=== PATIENT | male | born 1955 | race Caucasian/White ===

== ENCOUNTER → 2016-11-16 | Outpatient (CLI) | payer OTHER | END | disposition home or self-care (01) | LOC: C.CPL 14:38 | DX: Z01.810 Encounter for preprocedural cardiovascular examination (principal) ==

== ENCOUNTER 2025-01-02 11:12 | Inpatient (IN) ==
--- NOTE | 2025-01-02 11:44 | Cardiology Consultation ---
Date of Consultation January 02, 2025 Assessment & Plan (1) Unstable angina pectoris: Patient with recent symptoms consistent with both exertional and resting angina that has progressed over an interval of 4 months. He underwent an exercise nuclear stress test performed this morning at [facility]. The patient exercised according to Kulwinder protocol for 5 minutes and 30 seconds with reproduction of his chest discomfort, character consistent with angina, with associated ST segment depression in the inferior and lateral leads. Patient received 1 dose of sublingual nitroglycerin with resolution of the tightness. Perfusion images were reviewed independently and reveal a large sized lateral perfusion defect on the stress images with reperfusion on the rest images consistent with ischemia in the circumflex territory. On quantitative analysis the perfusion defect was 100% reversible. The post-rest ejection fraction by gated SPECT was normal, 57%. High sensitive troponin level x 1 performed in the emergency department is within normal limits. ST segment depression has resolved on follow-up EKG as documented in the emergency department. Recommend admission to the PCU. Proceed with aspirin, unfractionated heparin, atorvastatin.Start gentle normal saline, 75 mL/h Tentative plan for cardiac catheterization tomorrow unless the patient experiences accelerated symptoms at which time procedure will be performed on an expedited basis earlier. (2) HTN (hypertension): Hold off on adding metoprolol for now as baseline heart rate is already in the 60s. Continue prior to hospital treatment with amlodipine 5 mg daily, lisinopril 20 mg daily. (3) Hyperlipidemia: Most recent LDL cholesterol as obtained on 12/01/2024 was 77 mg/dL. Increase outpatient atorvastatin from 40 mg to 80 mg. (4) Alcohol abuse: Patient describes daily alcohol use, 5-6 drinks per day. Will likely require withdrawal prophylaxis. Case discussed with Dr Narayanan of emergency medicine and Dr Busby of interventional cardiology for the purpose of coordination of care. History of Present Illness History of Present Illness Cal Hutchison is a 69 year-old male seen in cardiology consultation per the request of Dr Narayanan of emergency medicine and the patient's primary care provider , Dr Wilks, for the evaluation of unstable angina. The patient describes exertional chest discomfort dating back to August, when he was clearing brush and had an episode of chest pressure and heavy perspiration that resolved with rest. In the meantime, he has had waxing and waning chest discomfort with exertion including chest pressure that radiated up into his jaw and his shoulders while shoveling snow. In the last few weeks he has had several episodes of a pressure sensation that woke him up from sleep and felt like an elephant sitting on his chest that radiates to his shoulders. The resting symptoms have come and gone since around October,. The patient was seen by his primary care provider and was referred for a resting echocardiogram performed on 12/13/2024 that revealed normal ejection fraction in the range of 55-59% with no resting wall motion abnormalities, no significant valvular disease. He unturned presented for an exercise nuclear stress test today. He was found to have a right bundle branch block and left anterior fascicular block on his baseline EKG which are chronic findings for him. With exercise he is symptoms of chest discomfort were reproduced with 9/10 chest discomfort while exercising on the treadmill and subtle ST segment depression was noted in inferior lateral leads on his stress EKG. Symptoms resolved with ceasing exercise and with the patient having received 1 dose of sublingual nitroglycerin. He was assessed by Dr. Rea of our practice in the outpatient cardiology clinic and referred to the emergency department for further evaluation. He was seen by the undersigned in the emergency department, room B6. At the time of my assessment the patient was comfortable he endorsed residual 1/10 chest discomfort. Past Medical History: Hypertension Dyslipidemia GERD Osteoarthritis Past Surgical History: spine surgery x 1 Shoulder surgery Family History: Patient's father is alive at the age of 91 with history of coronary heart disease, multiple stents, and is being followed for a valve problem, patient unaware of the details The patient's mother in her 80s of what the patient described as "natural causes "with no known heart disease The patient has 2 brothers and 2 sisters with no known heart disease to the best of his knowledge. 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 He quit cigarette smoking in the year 1999 He notes daily alcohol intake, 5-6 drinks per day Allergies Allergy/AdvReac Type Severity Reaction Status Date / Time No Known Allergies Allergy Unknown Verified 11/12/20 14:41 Home Medications Medication Instructions Recorded Confirmed Type citalopram 20 mg tablet 20 mg PO HS 06/17/18 11/12/20 History clonazepam 1 mg tablet 1 mg PO HS 06/17/18 11/12/20 History pantoprazole 40 mg tablet,delayed 40 mg PO HS 07/19/18 11/12/20 History release (Protonix) amlodipine 5 mg tablet 5 mg PO DAILY 09/18/20 11/12/20 History lisinopril 20 mg tablet 20 mg PO DAILY 09/18/20 11/12/20 History tamsulosin 0.4 mg capsule 0.4 mg PO HS #30 caps 10/28/20 11/12/20 Rx Patient History Medical History Alcohol abuse Obesity Cervicalgia B/L UE RADICULOPATHY/NEUROPATHY Solitary kidney CONGENITAL; UNSURE OF SIDE History of hiatal hernia GERD (gastroesophageal reflux disease) CONTROLLED Spinal stenosis Depression Anxiety Hyperlipidemia Surgical History History of esophagogastroduodenoscopy (EGD) History of lumbar fusion Hx of arthroscopy of shoulder Hx of colonoscopy Hx of right knee surgery Hx of shoulder surgery Family History Father Heart disease Social History Smoking Status: Former smoker Do You Dip or Chew Tobacco: No; Hx Alcohol Use: Yes Alcohol type: beer Alcohol Intake Frequency Comment: 6-10 lite beers 8-12oz cans daily, last drink 2300 on 07/18/18 Hx Substance Use: No Preferred Language: Citizen Of [place] Communication Ability: Effective Beliefs That Will Affect Care: None marital status: Current Living Situation: Spouse Feels Safe at Home: Yes Assistive Devices: Brace/Splint/Immobilizer and Glasses Review of Systems Review of Systems: All systems reviewed & are unremarkable except as noted in HPI & below Physical Exam Physical Exam: Temp Pulse Resp BP Pulse Ox O2 Del Method 36.3 C L 69 18 157/92 H 97 Room Air 01/02/25 11:15 01/02/25 11:42 01/02/25 11:22 01/02/25 11:15 01/02/25 11:22 01/02/25 11:22 Patient is 89 general: no acute distress and stated age Eyes: conjunctiva are pink and non-injected, sclera clear Neck: normal jugular venous pulse, no hepatojugular reflux Chest: normal shape and normal respiratory effort Lungs: clear to auscultation and percussion Cardiac Exam: - regular heart sounds, no murmurs, rubs, or gallops, no jugular venous distention Abdomen: abdomen soft, non-tender, no abnormal masses and no hepatosplenomegaly Musculoskeletal: no gait disturbance, no weakness Extremities: no edema and no cyanosis 2+ radial and femoral artery Neuro:awake, conversant, follows commands, no focal motor deficits Psych: appropriate affect and insight. Results & Data Laboratory Results Cardiac Enzymes 01/02/25 Range/Units 11:30 AST TNP Troponin I High Sens 15.5 (0-20) pg/ml Coagulation 01/02/25 Range/Units 11:30 PT Cancelled APTT Cancelled CBC 01/02/25 Range/Units 11:30 WBC 7.94 (4.8-10.8) K/ul RBC 4.03 L (4.70-6.10) M/uL Hgb 13.2 L (14.0-18.0) g/dl Hct 37.8 L (42.0-52.0) % Plt Count 193 (130-400) K/uL Neut # (Auto) 5.45 (1.40-6.50) K/uL Lymph # (Auto) 1.39 (1.20-3.40) K/uL Randall # (Auto) 0.67 H (0.11-0.59) K/uL Eos # (Auto) 0.35 (0.00-0.50) K/uL Baso # (Auto) 0.05 (0.00-0.20) K/uL Comprehensive Metabolic Panel 01/02/25 Range/Units 11:30 Sodium 134 L (136-145) mmol/L Potassium TNP Chloride 101 (98-107) mmol/L Carbon Dioxide 26 (21-32) mmol/L BUN 16 (6-23) mg/dl Creatinine 1.22 (0.6-1.4) mg/dl Glucose 99 (70-99(Fasting)) mg/dl Calcium 9.6 (8.6-10.3) mg/dl AST TNP ALT 19 (7-52) U/L Alkaline Phosphatase 41 (34-104) U/L Total Protein 7.7 (6.0-8.3) gm/dl Albumin 4.6 (3.4-5.0) gm/dl Diagnostic Findings EKG performed 01/02/2025 at 11:22 AM and interpreted independently: Sinus rhythm at 6 6 bpm with right bundle branch block, left axis deviation, QRS duration 146 ms, no significant ST segment elevation or depression.
[2025-01-02] MEDS: ASPIRIN 81 MG CHEW PO STA (11:51)
[2025-01-02 11:52] LABS: Basophils # (auto) 0.05 K/uL (0.00-0.20); Basophils % (auto) 0.6 %; Eosinophils # (auto) 0.35 K/uL (0.00-0.50); Eosinophils % (auto) 4.4 %; Hematocrit (blood only) 37.8 % (42.0-52.0); Hemoglobin 13.2 g/dl (14.0-18.0); Immature Granulocytes # (auto) 0.03 K/uL (0.01-0.20); Immature Granulocytes % (auto) 0.4 %; Lymphocytes # (auto) 1.39 K/uL (1.20-3.40); Lymphocytes % (auto) 17.5 %; Mean Corpuscular Hemoglobin 32.8 pg (25.0-34.0); Mean Corpuscular Hgb Conc 34.9 g/dL (32.0-36.0); Mean Corpuscular Volume 93.8 fL (80.0-100.0); Mean Platelet Volume 10.5 fL (9.4-12.4); Monocytes # (auto) 0.67 K/uL (0.11-0.59); Monocytes % (auto) 8.4 %; Neutrophils # (auto) 5.45 K/uL (1.40-6.50); Neutrophils % (auto) 68.7 %; Platelet Count 193 K/uL (130-400); RDW Coefficient of Variation 12.3 % (11.5-14.5); RDW Standard Deviation 42.5 fL (36.4-46.3); Red Blood Count 4.03 M/uL (4.70-6.10); White Blood Count 7.94 K/ul (4.8-10.8)
[2025-01-02] MEDS: SODIUM CHLORIDE 0.9% 1,000 ML IV SCH (11:52)
--- NOTE | 2025-01-02 11:52 | Emergency Department Note ---
Impression & Plan Unstable angina pectoris, HTN (hypertension), Abnormal nuclear stress test ED Provider Note NAME: FERNANDO MCWILLIAMS AGE: 69 SEX: M : 1955 ARRIVES VIA: Walk-In INFORMANT: Patient ED PROVIDER(S): Nic Narayanan MD CHIEF COMPLAINT: Chest pain, positive stress test, referred. PLAN: Disposition: Admit MEDICAL DECISION MAKING: The patient is a pleasant 69-year-old gentleman with a past medical history of hypertension, hyperlipidemia, GERD, alcohol use who presents to the emergency department via walk-in referred by his cardiology office after having an outpatient stress test today that was positive in the setting of having ongoing symptoms that are suspicious for unstable angina for the past couple of months. Patient developed chest pain and ST changes during his stress test. His symptoms resolved following nitroglycerin. Patient was seen by [facility] cardiology, Dr. Moe, in the emergency department. Appreciate consultation and recommendations. Patient will be admitted for unstable angina with plan to go to the [facility]. ASA and Heparin drip ordered. On evaluation patient is no acute distress, afebrile blood pressure in the 150s/90s and vital signs otherwise stable. He denies any significant pain at this time. EKG with RBBB without overt acute ischemia. Chest x-ray negative for acute cardiopulmonary process. WBC within normal limits. H/H similar to improved from prior. Platelets within normal limits. Chemistry without metabolic acidosis. Total bilirubin 1.4, nonspecific LFTs otherwise normal. High-sensitivity troponin 15.5, within normal limits. Lipase is normal. Case was discussed with Dr. Lopez, [facility] hospitalist, who will evaluate the patient for admission. Further management per admitting team. Triage Nursing notes reviewed and agree them. Prior/external medical records reviewed Vital Signs: reviewed Differential diagnosis: Cardiac ischemia, aortic dissection, pulmonary embolism, pneumothorax, pneumonia, pericarditis, myocarditis, esophageal rupture, GERD, cholecystitis, pancreatitis, musculoskeletal, as well as other pathologies. ER treatment provided: See below. Diagnostics interpreted by me: ECG: Normal sinus rhythm, 66 bpm, no ectopy, right bundle branch block, no overt ST elevation or depression, QTc 473, QRS 146 Cardiac Monitoring: An order for continuous cardiac monitoring was placed and demonstrated Normal sinus rhythm, 66 bpm, no ectopy, Laboratory studies: See below Imaging studies: See below Consultation(s): Dr. Moe, [facility] cardiology Dr. Lopez, [facility] hospitalist HPI: The patient is a pleasant 69-year-old gentleman with a past medical history of hypertension, hyperlipidemia, GERD, alcohol use who presents to the emergency department via walk-in referred by his cardiology office after having an outpatient stress test today that was positive in the setting of having ongoing symptoms that are suspicious for unstable angina for the past couple of months. Patient developed chest pain and ST changes during his stress test. His symptoms resolved following nitroglycerin. Patient was seen by [facility] cardiology, Dr. Moe, in the emergency department. Appreciate consultation and recommendations. Patient will be admitted for unstable angina with plan to go to the [facility]. ASA and Heparin drip ordered. ROS: See above HPI for pertinent positives & negatives. A total of 10 systems reviewed and were otherwise negative. VITALS:See Below PHYSICAL EXAMINATION: GENERAL: Awake, alert, in no distress HENT: Normocephalic, atraumatic. Oropharynx unremarkable. EYES: Normal conjunctiva. Sclera non-icteric. NECK: Supple. No nuchal rigidity. FROM. No JVD. RESPIRATORY: Clear to auscultation. CARDIAC: Regular rate, normal rhythm. Extremities warm and well perfused. Pulses equal. ABDOMEN: Soft, non-distended. No tenderness to palpation. No rebound or guarding. No masses. MUSCULOSKELETAL: Chest examination reveals no tenderness. The back is symmetrical on inspection without obvious abnormality. There is no CVA tenderness to palpation. No joint edema. LOWER EXTREMITIES: Calves are equal size bilaterally and non-tender. No edema. No discoloration. NEURO: Normal sensorium. No sensory or motor deficits noted. SKIN: No rash or jaundice noted. ED COURSE: Critical Care: I have personally spent greater than 35 minutes of critical care time in the direct management of this patient. This includes bedside care, interpretation of diagnostic studies, and testing, discussion with consultants, patient, and family members, and other required patient management activities. This 35 minutes is in excess of all separately billable procedures. Nic Narayanan MD Past Med/Surg History Problem List (Updated 01/02/25 @ 22:14 by Nic Narayanan MD) Abnormal nuclear stress test (Acute) HTN (hypertension) (Acute) Unstable angina pectoris (Acute) BPH w urinary obs/LUTS Weak urine stream Acute blood loss anemia Postoperative hypertension (Acute) History of esophagogastroduodenoscopy (EGD) Alcohol abuse Hyperlipidemia (Chronic) Anxiety (Chronic) Depression (Chronic) Spinal stenosis (Chronic) History of lumbar fusion (Chronic) GERD (gastroesophageal reflux disease) (Chronic) CONTROLLED Hx of arthroscopy of shoulder (Chronic) RIGHT Hx of shoulder surgery (Chronic) LEFT Hx of right knee surgery (Chronic) TENDON SURGERY Hx of colonoscopy (Chronic) Solitary kidney (Chronic) CONGENITAL; UNSURE OF SIDE Obesity (Chronic) Cervical stenosis of spinal canal Encounter for pre-operative examination Medical History Cervicalgia B/L UE RADICULOPATHY/NEUROPATHY History of hiatal hernia Family History Father Heart disease Social History Smoking Status: Never smoker Do You Dip or Chew Tobacco: No; Hx Alcohol Use: Yes Alcohol type: beer Alcohol Intake Frequency Comment: 6-10 lite beers 8-12oz cans daily, last drink 2300 on 07/18/18 Hx Substance Use: No Preferred Language: [place] Communication Ability: Effective Emergency Veterinarian Required: No Beliefs That Will Affect Care: None marital status: Current Living Situation: Spouse Other Information That Helps Us Care for You: No Feels Safe at Home: Yes Safety Concerns: Feels Safe At This Time Assistive Devices: None Allergies Allergies Allergy/AdvReac Type Severity Reaction Status Date / Time No Known Allergies Allergy Unknown Verified 01/02/25 13:21 Home Meds Home Medications Medication Instructions Recorded Confirmed citalopram 20 mg tablet 20 mg PO HS 06/17/18 01/02/25 clonazepam 1 mg tablet 1 mg PO 06/17/18 01/02/25 pantoprazole 40 mg tablet,delayed 40 mg PO QAM 07/19/18 01/02/25 release (Protonix) amlodipine 5 mg tablet 5 mg PO DAILY 09/18/20 01/02/25 lisinopril 20 mg tablet 20 mg PO DAILY 09/18/20 01/02/25 atorvastatin 40 mg tablet 40 mg PO QAM 01/02/25 01/02/25 Results & Data (ED) Vital Signs Vital Signs - 24 hr 01/02/25 11:13 01/02/25 11:13 01/02/25 11:15 Temperature 36.3 C L Temperature Source Skin Pulse Rate 68 Pulse Rate [Right] 63 Pulse Rhythm Pulse Rhythm [Right] Regular Pulse Strength [Right] Normal Respiratory Rate 18 17 Respiratory Effort / Characteristics Non-Labored Non-Labored Spontaneous Respiratory Depth Normal Normal Respiratory Pattern Regular Regular Blood Pressure 157/92 H Blood Pressure [Right Arm] 143/78 H Blood Pressure Mean 113 Blood Pressure Mean [Right Arm] 99 Blood Pressure Position [Right Arm] Lying Pulse Oximetry 97 96 Oxygen Delivery Method Room Air Room Air Room Air Sepsis Recent Fever Within 48 Hours No Sepsis New/Unexplained Change in Mental Status N/A Sepsis Action Taken by Nursing No Action Required 01/02/25 11:22 01/02/25 11:42 Temperature Temperature Source Pulse Rate 65 69 Pulse Rate [Right] Pulse Rhythm Regular Pulse Rhythm [Right] Pulse Strength [Right] Respiratory Rate 18 Respiratory Effort / Characteristics Respiratory Depth Respiratory Pattern Blood Pressure Blood Pressure [Right Arm] Blood Pressure Mean Blood Pressure Mean [Right Arm] Blood Pressure Position [Right Arm] Pulse Oximetry 97 Oxygen Delivery Method Room Air Sepsis Recent Fever Within 48 Hours Sepsis New/Unexplained Change in Mental Status Sepsis Action Taken by Nursing Laboratory Data Attestation: I reviewed the patient's lab results. 01/02/25 11:30 01/02/25 11:30 Lab Results 01/02/25 01/02/25 Range/Units 11:30 12:27 WBC 7.94 (4.8-10.8) K/ul RBC 4.03 L (4.70-6.10) M/uL Hgb 13.2 L (14.0-18.0) g/dl Hct 37.8 L (42.0-52.0) % MCV 93.8 (80.0-100.0) fL MCH 32.8 (25.0-34.0) pg MCHC 34.9 (32.0-36.0) g/dL RDW Std Deviation 42.5 (36.4-46.3) fL RDW Coeff of Jessica 12.3 (11.5-14.5) % Plt Count 193 (130-400) K/uL MPV 10.5 (9.4-12.4) fL Immature Gran % (Auto) 0.4 % Neut % (Auto) 68.7 % Lymph % (Auto) 17.5 % Kay % (Auto) 8.4 % Eos % (Auto) 4.4 % Baso % (Auto) 0.6 % Neut # (Auto) 5.45 (1.40-6.50) K/uL Lymph # (Auto) 1.39 (1.20-3.40) K/uL Kay # (Auto) 0.67 H (0.11-0.59) K/uL Eos # (Auto) 0.35 (0.00-0.50) K/uL Baso # (Auto) 0.05 (0.00-0.20) K/uL Immature Gran # (Auto) 0.03 (0.01-0.20) K/uL PT Cancelled 10.7 INR Cancelled 1.0 APTT Cancelled 27 PTT Ratio Cancelled 1.0 Sodium 134 L (136-145) mmol/L Potassium 4.4 (3.5-5.1) mmol/L Chloride 101 (98-107) mmol/L Carbon Dioxide 26 (21-32) mmol/L Anion Gap 7 (3-11) BUN 16 (6-23) mg/dl Creatinine 1.22 (0.6-1.4) mg/dl Est Cr Clr Drug Dosing 64.6 ml/min eGFR 64.18 BUN/Creatinine Ratio 13.1 (10-20) Glucose 99 (70-99(Fasting)) mg/dl Calcium 9.6 (8.6-10.3) mg/dl Magnesium 1.9 (1.7-2.4) mg/dl Total Bilirubin 1.4 H (0.2-1.0) mg/dl AST 18 (13-39) U/L ALT 19 (7-52) U/L Alkaline Phosphatase 41 (34-104) U/L Troponin I High Sens 15.5 (0-20) pg/ml Total Protein 7.7 (6.0-8.3) gm/dl Albumin 4.6 (3.4-5.0) gm/dl Globulin 3.1 (2.5-4.0) gm/dl Albumin/Globulin Ratio 1.5 (0.9-2) Lipase 38 (11-82) U/L Administered Medications Acetaminophen (Acetaminophen 325 Mg Tab) 650 mg PO Q4H PRN PRN Reason: Pain or Fever Stop: 02/01/25 14:31 Last Admin: 01/02/25 20:09 Dose: 650 mg Documented By: SAMUEL Sodium Chloride (Nss) 1,000 mls @ 75 mls/hr IV .[id number] JERALD Stop: 01/03/25 11:44 Last Admin: 01/02/25 11:52 Dose: 75 mls/hr Documented By: MARY Heparin Sodium/Dextrose (Heparin 51612 Unit/500 Ml D5w) 25,000 units in 500 mls @ 0 mls/hr IV .Q0M JERALD; Protocol Stop: 02/01/25 12:29 Last Titration: 01/02/25 19:51 Dose: 0 units/hr, 0 mls/hr Documented By: SAMUEL Co-signed By: FABIENNE Admin: 01/02/25 13:06 Dose: 1,450 units/hr, 29 mls/hr Documented By: MARY Co-signed By: DAXA Nitroglycerin (Nitroglycerin 2% Ointment 30gm Tube) 1 inch EXT Q6H JERALD Stop: 02/01/25 16:44 Last Admin: 01/02/25 17:15 Dose: 1 inch Documented By: CHARU Discontinued Medications Aspirin (Aspirin 81 Mg Chew) 324 mg PO NOW STA Stop: 01/02/25 11:42 Last Admin: 01/02/25 11:51 Dose: 324 mg Documented By: MARY Atorvastatin Calcium (Atorvastatin 40 Mg Tab) 80 mg PO NOW ONE Stop: 01/02/25 12:01 Last Admin: 01/02/25 12:15 Dose: 80 mg Documented By: MARY Heparin Sodium (Porcine) (Heparin Sod (Porcine) 1000 Unit/Ml) 6,000 units IV NOW ONE Stop: 01/02/25 12:19 Last Admin: 01/02/25 13:06 Dose: 6,000 units Documented By: MARY Co-signed By: DAXA Heparin Sodium/Dextrose (Heparin Iv Adult Wt-Based Standard W/ Initial Bolus Protocol) 1 each IV Q10M JERALD; Protocol Stop: 02/01/25 12:07 Last Admin: 01/02/25 13:12 Dose: Not Given Documented By: Admin: 01/02/25 13:12 Dose: Not Given Documented By: Admin: 01/02/25 13:12 Dose: Not Given Documented By: Admin: 01/02/25 13:11 Dose: Not Given Documented By: SARITHAW Nitroglycerin (Nitroglycerin 2% Ointment 30gm Tube) 0.5 inch EXT Q6H JERALD Stop: 02/01/25 12:14 Last Admin: 01/02/25 13:01 Dose: 0.5 inch Documented By: MPD Imaging Data Radiologist's Impression: Chest X-Ray 01/02/25 11:21 XR chest 1V portable CLINICAL HISTORY: Chest pain, nonspecific COMPARISON STUDY: 06/21/2018 FINDINGS: Single view chest demonstrates no acute process allowing for low lung volumes and body habitus. There is no airspace opacity, pleural effusion, or pneumothorax. The heart and pulmonary vascularity are unremarkable. IMPRESSION: Stable exam; no acute process ACT 112: Negative or not required by law. Electronically signed by: Emma Camacho M.D. 01/02/2025 1:38 PM Discharge Plan Visit Data Chief Complaint: Chest Pain Stated Complaint: HEART, CHEST PAIN ED Provider: Nic Narayanan Discharge Problem: Unstable angina pectoris, HTN (hypertension), Abnormal nuclear stress test Patient Disposition: Admitted As Inpatient Discharge Instructions Interventions: ED Discharge Assessment Last Done: 01/02/25 13:56 Discharge Problem: HTN (hypertension) Qualifiers: Hypertension type: unspecified Qualified Code(s): I10 - Essential (primary) hypertension
[2025-01-02 12:15] LABS: Albumin Globulin Ratio 1.5 (0.9-2); Albumin Level 4.6 gm/dl (3.4-5.0); BUN Creatinine Ratio 13.1 (10-20); Bilirubin,Total 1.4 mg/dl (0.2-1.0); Calcium 9.6 mg/dl (8.6-10.3); Creatinine Clr Calc Pharmacy 64.6 ml/min; Globulin 3.1 gm/dl (2.5-4.0); Magnesium 1.9 mg/dl (1.7-2.4); Total Protein 7.7 gm/dl (6.0-8.3); Troponin I High Sensitivity 15.5 pg/ml (0-20)
[2025-01-02] MEDS: ATORVASTATIN 40 MG TAB PO ONE (12:15)
[2025-01-02 12:26] LABS: Potassium 4.4 mmol/L (3.5-5.1)
[2025-01-02] MEDS: NITROGLYCERIN 2% OINTMENT 30GM TUBE EXT SCH ×2 (13:01→17:15)
[2025-01-02] MEDS: HEPARIN 25000 UNIT/500 ML D5W 25,000 UNITS/500 ML BAG IV SCH (13:06)
[2025-01-02] MEDS: HEPARIN SOD (PORCINE) 1000 UNIT/ML IV ONE (13:06)
[2025-01-02 13:09] LABS: Partial Thromboplastin Time 27 Seconds (21-31); Prothrombin Time 10.7 Seconds (9.0-12.0)
[2025-01-02] MEDS: Heparin IV Adult Wt-Based Standard w/ INITIAL Bolus Protocol IV SCH (13:11)
--- NOTE | 2025-01-02 13:39 | XRay Report ---
XR chest 1V portable CLINICAL HISTORY: Chest pain, nonspecific COMPARISON STUDY: 06/21/2018 FINDINGS: Single view chest demonstrates no acute process allowing for low lung volumes and body habi tus. There is no airspace opacity, pleural effusion, or pneumothorax. The heart and pulmonary vascula rity are unremarkable. IMPRESSION: Stable exam; no acute process ACT 112: Negative or not required by law. Electronically signed by: Emma Camacho M.D. 01/02/2025 1:38 PM
--- NOTE | 2025-01-02 14:41 | History & Physical Report ---
Date of Service January 02, 2025 Assessment & Plan (1) Unstable angina pectoris: Plan: 69-year-old male with history of hypertension, dyslipidemia, GERD, LAURA Presenting with chest pain times few weeks. Unstable angina Positive nuclear stress test Troponin negative x 1 EKG mild branch block, left anterior fascicular block-chronic Discussed plan of care with Dr. Moe Plan for cardiac catheterization tomorrow Continue heparin drip, Nitropaste Atorvastatin increased to 80 mg daily Continue usual amlodipine plus lisinopril Other chronic medical problems Hypertension Dyslipidemia GERD Generalized anxiety DVT prophylaxis Currently on heparin drip Full code Disposition Lives with family Admission and Anticipated Discharge Date Admission Date: January 02, 2025 History of Present Illness Chief Complaint: Chest pain times few weeks Primary Care Provider: Areli Wilks MD 69-year-old male with history of hypertension, dyslipidemia, GERD, LAURA Presenting with chest pain times few weeks. Patient has been having intermittent chest pain which started last August 2024. Today, the patient underwent an exercise nuclear stress test which was markedly abnormal, reproducing chest discomfort and with subtle ST segment depressions in the inferior lateral leads. He was then referred to the ER. Upon arrival, blood pressure 143/78, rate 63, respiratory rate 18, 90% on room air, temperature afebrile Troponin x 1 negative EKG no signs of ischemia or infarct Dr. Moe evaluated the patient at the ER. He was given [id number] mg, heparin drip was started, and Nitropaste, Lipitor 80 mg also ordered. Discussed case with Dr. Moe, plan is for a cardiac catheterization tomorrow. On exam, patient seen resting in bed, sitting up, having 1 out of 10 chest discomfort which is usual according to him. No active dizziness, headache, shortness of breath, nausea. Allergies Allergy/AdvReac Type Severity Reaction Status Date / Time No Known Allergies Allergy Unknown Verified 01/02/25 13:21 Home Medications Medication Instructions Recorded Confirmed Type citalopram 20 mg tablet 20 mg PO HS 06/17/18 01/02/25 History clonazepam 1 mg tablet 1 mg PO HS 06/17/18 01/02/25 History pantoprazole 40 mg tablet,delayed 40 mg PO QAM 07/19/18 01/02/25 History release (Protonix) amlodipine 5 mg tablet 5 mg PO DAILY 09/18/20 01/02/25 History lisinopril 20 mg tablet 20 mg PO DAILY 09/18/20 01/02/25 History atorvastatin 40 mg tablet 40 mg PO QAM 01/02/25 01/02/25 History Past Med/Surg History Problem List (Updated 01/02/25 @ 12:19 by Chaparro Moe DO) HTN (hypertension) Unstable angina pectoris BPH w urinary obs/LUTS Weak urine stream Acute blood loss anemia Postoperative hypertension (Acute) History of esophagogastroduodenoscopy (EGD) Alcohol abuse Hyperlipidemia (Chronic) Anxiety (Chronic) Depression (Chronic) Spinal stenosis (Chronic) History of lumbar fusion (Chronic) GERD (gastroesophageal reflux disease) (Chronic) CONTROLLED Hx of arthroscopy of shoulder (Chronic) RIGHT Hx of shoulder surgery (Chronic) LEFT Hx of right knee surgery (Chronic) TENDON SURGERY Hx of colonoscopy (Chronic) Solitary kidney (Chronic) CONGENITAL; UNSURE OF SIDE Obesity (Chronic) Cervical stenosis of spinal canal Encounter for pre-operative examination Medical History Alcohol abuse Obesity Cervicalgia B/L UE RADICULOPATHY/NEUROPATHY Solitary kidney CONGENITAL; UNSURE OF SIDE History of hiatal hernia GERD (gastroesophageal reflux disease) CONTROLLED Spinal stenosis Depression Anxiety Hyperlipidemia Surgical History History of esophagogastroduodenoscopy (EGD) History of lumbar fusion Hx of arthroscopy of shoulder Hx of colonoscopy Hx of right knee surgery Hx of shoulder surgery Family History Father Heart disease Social History Smoking Status: Former smoker Do You Dip or Chew Tobacco: No; Hx Alcohol Use: Yes Alcohol type: beer Alcohol Intake Frequency Comment: 6-10 lite beers 8-12oz cans daily, last drink 2300 on 07/18/18 Hx Substance Use: No Preferred Language: Indonesian Communication Ability: Effective Beliefs That Will Affect Care: None marital status: Current Living Situation: Spouse Feels Safe at Home: Yes Assistive Devices: Brace/Splint/Immobilizer and Glasses Review of Systems Review of Systems: all noted and negative except for above Physical Exam Physical Exam: General- oriented x 3, not in distress, speaks in sentences with no effort or accessory muscle use Head- atraumatic Eyes- PERRL, EOMI, anicteric ENT- oropharynx clear Neck- supple, no JVD, no adenopathy, no thyromegaly; carotids +2/2, no bruits appreciated Lungs- clear to auscultation bilaterally, no rales/wheezes Heart- normal rate, regular rhythm; no murmur, no gallop, no rub appreciated Abdomen- normal bowel sounds, nondistended, soft, nontender, no masses or hepatosplenomegaly Extremities- no pretibial edema, no calf tenderness; peripheral pulses intact Neuro- alert, oriented x 3; CN 2-12 grossly intact; motor 5/5 bilaterally;sensation 100% on all extremities; no other gross focal neurologic deficits Skin- warm & dry Results & Data Results & Data Vital Signs (Past 12 Hours) Vital Signs Temp Pulse Pulse Resp BP BP Pulse Ox 01/02/25 13:31 70 18 149/85 H 95 01/02/25 13:00 63 18 171/91 H 93 01/02/25 11:42 69 01/02/25 11:22 65 18 97 01/02/25 11:15 36.3 C L 68 17 157/92 H 96 01/02/25 11:13 01/02/25 11:13 63 18 143/78 H 97 O2 Del Method 01/02/25 13:31 Room Air 01/02/25 13:00 Room Air 01/02/25 11:42 01/02/25 11:22 Room Air 01/02/25 11:15 Room Air 01/02/25 11:13 Room Air 01/02/25 11:13 Room Air all noted and reviewed including below Code Status & VTE Plan VTE Prophylaxis Plan VTE Prophylaxis will be ordered: No
--- OUTSIDE RECORDS SUMMARY | 2025-01-02 15:29 | External Medical Summary ---
Author Name Unknown Address Unknown Organization [id number]:[facility] [place] - [address] [place] [id number] Laboratory Report Ordering Provider Test Date Status ALISA GRIDER 12/01/2024 16:24:30 Final Observation Date Value Abnormality Reference (Units ) Status WBC, Total 12/01/2024 16:24:30 7.62 4.00-10.8 0 (K/uL) Final RBC 12/01/2024 16:24:30 4.11 4.50-5.25 (M/uL) Final Hemoglobin 12/01/2024 16:24:30 13.6 Below low normal 14 .0-16.8 (g/dL) Final Anemia reflex testing trigge rs on a HGB < 12.0 for Females and HGB < 13.0 for Males in accordance with the WHO Anemia Guidelines
Anemia reflex testing triggers on a HGB < 12.0 for Females and HGB < 13.0 for Males in accordance with the WHO Anemia Guidelines HCT 12/01/2024 16:24:30 40.5 40.0-48.4 (%) Final MCV 12/01/2024 16:24:30 98.5 82.0-99.5 (fL) Final MCH 12/01/2024 16:24:30 33.1 27.0-34.0 (pg) Final MCHC 12/01/2024 16:24:30 33.6 32.0-36.0 (g/dL) Final RDW 12/01/2024 16:24:30 12.6 11.5-15.5 (%) Final Platelets 12/01/2024 16:24:30 215 140-400 (K /uL) Final MPV 12/01/2024 16:24:30 11.3 6.6-11.1 ( fL) Final Nucleated erythrocytes/100 leukocytes [Ratio] in Blood by Automated count 12/01/2024 16:24:30 0 <=0 (/100 WBCs) Fi nal Performing Location [facility] [place] - [address] [facility] [id number]
--- OUTSIDE RECORDS SUMMARY | 2025-01-02 15:29 | External Medical Summary ---
Author Name Unknown Address Unknown Organization [id number]:[facility] [place] - [address] [facility] [address] Laboratory Report Ordering Provider Test Date Status ALISA GRIDER 12/01/2024 16:24:30 Final Observation Date Value Abnormality Reference (Units ) Status SYNC LEUKOCYTES IN BLOOD BY AUTOMATED COUNT 12/01/2024 16:24:30 7.62 4.00-10.80 (K/uL) Final Segs 12/01/2024 16:24:30 62.2 40.0-75.0 (%) Final Lymphs % 12/01/2024 16:24:30 22.4 18.0-42.0 (%) Final Monos 12/01/2024 16:24:30 9.2 1.0-11.0 (%) Final Eosinophils 12/01/2024 16:24:30 4.9 0.0-6.0 (%) Final Basos 12/01/2024 16:24:30 0.8 0.0-2.0 (%) Final Immature Granulocyte, Percent 12/01/2024 16:24:30 0.5 0.0-2.0 (%) Final Absolute Segs 12/01/2024 16:24:30 4.74 1.80-7.70 (K/uL) Final Lymphs, absolute 12/01/2024 16:24:30 1.71 1.00-4.80 (K/ul) Final Monos, Abs 12/01/2024 16:24:30 0.70 0.00-1.10 (K/uL) Final Eos, Abs 12/01/2024 16:24:30 0.37 0.00-0.70 (K/uL) Final Basos, Abs 12/01/2024 16:24:30 0.06 0.00-0.20 (K/uL) Final Immature Granulocytes, Number 12/01/2024 16:24:30 0.04 0.00-0.20 (K/uL) Final Performing Location [facility] [place] - [facility] [address] [facility] [address]
--- OUTSIDE RECORDS SUMMARY | 2025-01-02 15:29 | External Medical Summary | Summary of Care ---
Author Name Unknown Organization [facility] Address [address] [facility] [place] [address] Phone [phone] Care Team Providers Care Die Fitter Name Role Phone Irene Caldwell PA-C Primary Care Provider [phone]- [phone] Reason for Visit * Reason Comments Outpatient Testing Encounter Details Date Type Department Care Team (Late st Contact Info) Description 12/01/2024 4:30 PM EST Laboratory Laboratory [address] [place] [phone] [place] [address] Chest pain, unspecified type; Hypertension goal BP (blood pressure) < 140/90; Epigastric pain; Dyslipidemia, goal LDL below 130 Allergies Active Allergy Reactions Criticality Noted Date Comments No Known Drug Allergy 08/25/2010 documented as of this encounter (statuses as of 12/01/2024) Medications Sildenafil Citrate 100 MG Oral TabletIndications :Erectile dysfunction, unspecified erectile dysfunction type TAKE ONE TABLET BY MOUTH 1-4 HOURS PRIOR TO INTERCOURSE. NO MORE THAN 1 TABLET EVERY 24 HOURS 6 Tablet 5 3 Active Pantoprazole Sodium 40 MG Oral Tablet Delayed Release (Protonix)Indicat ions:Gastroesopha geal reflux disease without esophagitis,Hiata l hernia TAKE 1 TABLET BY MOUTH EVERY DAY 30 MIN BEFORE FIRST MEAL OF THE DAY 90 Tablet 3 4 Active Lisinopril 20 MG Oral Tablet (Prinivil)Indicat ions:HTN, goal below 140/90 TAKE 1 TABLET BY MOUTH EVERY DAY 90 Tablet 2 4 Active amLODIPine Besylate 5 MG Oral Tablet (Norvasc) TAKE 1 TABLET BY MOUTH EVERY DAY 90 Tablet 3 4 Active Citalopram Hydrobromide 20 MG Oral Tablet (CeleXA)Indicatio ns:Generalized anxiety disorder TAKE 1 TABLET BY MOUTH EVERY DAY 90 Tablet 3 4 Active Atorvastatin Calcium 40 MG Oral Tablet (Lipitor)Indicati ons:Dyslipidemia, goal LDL below 130 TAKE 1 TABLET BY MOUTH EVERY DAY IN THE MORNING 90 Tablet 5 Active clonazePAM 1 MG Oral Tablet (KlonoPIN)Indicat ions:Insomnia TAKE 1 TABLET BY MOUTH EVERY DAY NEEDED FOR ANXIETY 30 Tablet 5 Active documented as of this encounter (statuses as of 12/01/2024) Active Problems Problem Noted Date Diagnosed Date Recurrent major depressive disorder, in partial remission 03/26/2023 Congenital single kidney 03/11/2022 Daily consumption of alcohol 03/11/2022 Hypertension goal BP (blood pressure) < 140/90 0 04/04/2020 Deviated nasal septum 09/08/2019 Obesity, Class I, BMI 30.0-34.9 (see actual BMI) 06/22/2018 Right bundle branch block (RBBB) on electrocardi ogram (ECG) 06/22/2018 DDD (degenerative disc disease), cervical 2017 Dyslipidemia, goal LDL below 130 08/27/2017 Gastroesophageal reflux disease without esophagi tis 12/06/2001 Insomnia Overview (07/26/2017): ICD-10 update of inactive term LAURA (generalized anxiety disorder) Arthritis of right acromioclavicular joint Hiatal hernia documented as of this encounter (statuses as of 12/01/2024) Resolved Problems Problem Noted Date Diagnosed Date Resolved Date Acute serous otitis media of right ear 09/08/2019 03/10/2021 Dyslipidemia, goal to be determined 10/01/2009 02/12/2010 Overview (10/01/2009): Per Lipid Taxonomy. DERMATITIS - ECZEMATOUS 08/14/2009 1112/2016 Benign neoplasm of colon 02/24/200708/2018 Overview (03/01/2007): hyperplastic polyp--repeat 5 years ADVANCE DIRECTIVE INFORMATION 01/28/2006 08/28/2024 Overview (01/28/2006): No, Advance Directive brochure offered , patient declined. OSTEOARTHROS NOS-SHLDER 04/26/200302/22 Mixed dyslipidemia 12/06/2001 9 Overview (10/01/2009): Per Lipid Taxonomy. Dermatitis 08/14/2009 Mixed dyslipidemia 7 documented as of this encounter (statuses as of 12/01/2024) Immunizations Name Administration Dates Next Due COVID-19 mRNA, LNP-s, No Pre serve, 2-Dose Series ([employer]) 09/30/2021,01/18/2021,12/21/2020 COVID-19, MRNA-LNP, PF, 30 M CG/0.3 mL, 12 YRS AND ABOVE, IM (PFIZER-Comirnaty) 11/23/2023 Covid-19, Mrna, Lnp-s, Pf, B ivalent, 30 Mcg, IM, 12 yrs and above (Pfizer) 09/08/2022 Pneumococcal Polysaccharide PPV23 (Pneumovax) 09/10/2021 Seasonal Influenza, High Dos e, Trivalent, PF, IM (Fluzone HD) 08/03/2024 Seasonal Influenza, Quadriva lent Hd (Fluzone Hd) 11/23/2023,09/08/2022,09/10/2021 TDAP (age 10 and older)(Boostrix) 02/17/2019 TDAP, Age 7 and older, IM (Adacel) 07/12/2008 Zoster Vaccine Recombinant (Shingrix) 09/08/2022 ,03/11/2022 documented as of this encounter Social History Tobacco Use Types Packs/Day Years Used Date Smoking Tobacco: Former Cigarettes 1 25 0 10/25/1975 - 10/25/2000 Smokeless Tobacco: Never Comments:one pack per week-o r less/ exposed to 's passive smoke Alcohol Use Standard Drinks/Week Comments Yes 0 (1 standard drink = 0.6 oz pur e alcohol) 6-12 Beers per day PHQ-2 Answer Date Recorded PHQ Adult Total Score 0 12/01/2024 Hunger Vital Sign Answer Date Recorded Within the past 12 months, y ou worried that your food would run out before you got the money to buy more. Never true 11/10/19 24 Within the past 12 months, t he food you bought just didn't last and you didn't have money to get more. Never true 11/10/2023 Childcare Answer Date Recorded Do you feel overwhelmed with taking care of a child, family member or friend? No 11/10/2023 Does your family need help f inding childcare? (Household - for ages 0-17 years) Not on file 11/10/2023 Clothing Answer Date Recorded Have you been unable to get clothing when it was really needed? Yes 11/10/2023 Is your family able to get c lothes or diapers when needed? (Household - for ages 0-17 years) Not on file 11/10/2023 Personal Safety Answer Date Recorded Do you feel unsafe or have concerns for your saf ety? No 11/10/2023 Do you have concerns for you r family's safety? (Household - for ages 0-17 years) Not on file 11/10/2023 Utilities Answer Date Recorded Do you have trouble paying y our heating, water, or electric bill? No 11/10/2023 Is your family able to pay t he heat, water, or electric bill? (Household - for ages 0-17 years) Not on file 11/10/2023 Does your family have access to good internet? (Household - for ages 0-17 years) Not on file 11/10/2023 Employment Status Answer Date Recorded Are you unemployed or without regular income? No 11/10/2023 Does the household have a re gular source of income? (Household - for ages 0-17 years) Not on file 11/10/2023 Social Connections Answer Date Recorded How often do you feel lonely or isolated from th ose around you? Never 11/10/2023 Financial Resource Strain Answer Date R ecorded Do you have any trouble payi ng for your medications, or do you think you might in the future? No 11/10/2023 Does your family have troubl e paying for medicine? (Household - for ages 0-17 years) Not on file 11/10/2023 Transportation Needs Answer Date Record ed READ ONLY Do you have troubl e getting a ride to medical visits or work? Never True 11/10/2023 Does your family have a hard time getting a ride to doctors visits? (Household - for ages 0-17 years) Not on file 11/10/2023 Has lack of transportation k ept you from medical appointments, meetings, work, or from getting things needed for daily living? Check all that apply. (Adult - for ages 18 years and over) Not on file 11/10/2023 Do you (or your family) have trouble finding or paying for a ride (transportation)? (Household - for ages 0-17 years) Not on file 11/10/2023 Housing Stability Answer Date Recorded Do you currently live in a s helter or have no steady place to sleep at night? No 11/10/2023 READ ONLY Do you think you a re at risk of becoming homeless? No 11/10/2023 Does your family worry about paying for your home or becoming homeless? (Household - for ages 0-17 years) Not on file 0 11/10/2023 Are you homeless or worried that you might be in the future? (Adult - for ages 18 years and over) Not on file Are you (or your family) elizabeth eless or worried that you might be in the future? (Household - for ages 0-17 years) Not on file Food Insecurity Answer Date Recorded Do you need food for this week? No 11/10/2023 Are you able to get enough f ood for your family? (Household - for ages 0-17 years) Not on file 11/10/2023 Does your family need food t his week? (Household - for ages 0-17 years) Not on file 11/10/2023 Do you always have enough fo od for your family? (Household - for ages 0-17 years) Not on file 11/10/2023 Sex and Gender Information Value Date Recorded Sex Assigned at Male 03/11/2022 8:24 AM EDT Legal Sex Male 5:27 AM EST Gender Identity Male 03/11/2022 8:24 AM EDT Sexual Orientation Straight 03/11/2022 8: 24 AM EDT documented as of this encounter Plan of Treatment Upcoming Encounters Date Type Department Care Team (Late st Contact Info) Description 06/05/2025 10:20 AM EDT Office Visit Family Medicine [address] [place] [phone] Irene Caldwell PA-C [address] [place] [address] [place] [phone] Pending Results Name Type Priority Associated Diagnoses Date /Time CBC WITH WBC DIFFERENTIAL AND ANEMIA REFLEX WORKUP Lab Routine Chest pain, unspecified type 12/01/2024 4:24 PM EST COMPREHENSIVE METABOLIC PANEL Lab Routine Hypertension goal BP (blood pressure) < 140/90 Chest pain, unspecified type 12/01/2024 4:24 PM EST LIPASE Lab Routine Epigastric pain 12/01/2024 4:24 PM EST LIPID PANEL WITH DIRECT LDL IF TG IS HIGH Lab Routine Dyslipidemia, goal LDL below 130 12/01/2024 4:24 PM EST ANEMIA CBC Lab Routine Chest pain, unspecified type 12/01/2024 4:24 PM EST DIFFERENTIAL, AUTOMATED Lab Routine Chest pain, unspecified type 12/01/2024 4:24 PM EST ANEMIA REFLEX CHEMISTRY HOLD Lab Routine Chest pain, unspecified type 12/01/2024 4:24 PM EST Scheduled Procedures Name Priority Associated Diagnoses Date/Ti me COLONOSCOPY FLEXIBLE PROXIMAL DIAGNOSTIC Recall History of colon polyps Health Maintenance Due Date Last Done Comments Cologuard 2000 Fecal Occult Blood Test 2000 Sigmoidoscopy 2000 Adult Wellness Visit 2021 Pneumococcal Vaccine: 50+ Years (2 of 2 - PCV) 09/10/2022 09/10/2021 COVID-19 Vaccine ( season) 2024 11/23/2023, 09/08/2022, 09/30/2021, Additional history exists GFR 11/30/2024 11/30/2023, 12/24, 01/21/2022, Additional history exists Depression Monitoring 12/01/2025 12/01/2024 Albumin/Creatinine Ratio 01/20/2026 01/20/2023, 02/23 Diabetes Screening 11/30/2026 11/30/2023, 0 01/20/2023, 01/21/2022, Additional history exists Colonoscopy 07/15/2027 07/15/2022, 06/26, 07/10/2016, Additional history exists Colorectal Cancer Screening 07/15/2027 Lipid Panel 11/30/2028 11/30/2023, 12/24, 01/21/2022, Additional history exists DTap/Tdap Vaccines (3 - Td or Tdap) 02/17/2029 02/17/2019, 07/12/2008 AAA Screening Completed 03/14/2021 RETIRED - COLONOSCOPY-EVERY 5 YRS AGES 18-100 Discontinued 07/15/2022, 07/15/2022, 07/10/2016, Additional history exists Zoster Vaccines Completed 09/08/2022, 03/11/2022 Influenza Vaccine (FLU shot) Completed 08/03/2024, 11/23/2023, 09/08/2022, Additional history exists HPV (Gardasil) Vaccine Aged Out No lo nger eligible based on patient's age to complete this topic Hepatitis B Vaccine Aged Out No longe r eligible based on patient's age to complete this topic MENINGOCOCCAL (MENACTRA/MENVEO) Aged Out No longer eligible based on patient's age to complete this topic documented as of this encounter Medical Devices Implanted Type Area Housing Project Manager Device Identifier Shelf Expiration Date Model / Serial / Lot Lens Li61ao 13.00mm 21.50 - [id number] - [id number] Implanted:Qty: 1 on 06/03/2023 by Nish Goel MD at OR [facility] Right: Eye [employer] 12/23/2027 [id number] / [id number] / [id number] Lens Li61ao 13.00mm 21.00 - [id number] - [id number] Implanted:Qty: 1 on 07/08/2023 by Nish Goel MD at OR [facility] Left: Eye [employer] 02/22/2028 [id number] / [id number] / [id number] documented as of this encounter Visit Diagnoses Diagnosis Chest pain, unspecified type Hypertension goal BP (blood pressure) < 140/90 Unspecified essential hypertension Epigastric pain Abdominal pain, epigastric Dyslipidemia, goal LDL below 130 Other and unspecified hyperlipidemia documented in this encounter Advance Directives * Full Code (Latest Code Status on File) Date Activated Date Inactivated Comments 07/08/2023 12:08 PM 07/08/2023 5:56 PM This order reflects the patients wishes and were consensually agreed upon. Question Answer Comments Discussion of Advance Directives occurred with: Patient Does the patient have a Living Will? No Does the patient have Health Care Power of Attor magui? No * No Code Date Activated Date Inactivated Comments 06/03/2023 11:13 AM 06/03/2023 5:12 PM This order reflects the patients wishes and were consensually agreed upon. Question Answer Comments Discussion of Advance Directives occurred with: Patient Does the patient have a Living Will? No Does the patient have Health Care Power of Attor magui? No Care Teams Die Fitter Relationship Specialty Start Date End Date Irene Caldwell PA-C [address] [place] [address] [place] [id number] PCP - General Physician Wire Spinner 11/01/24 documented as of this encounter
--- OUTSIDE RECORDS SUMMARY | 2025-01-02 15:29 | External Medical Summary | Summary of Care ---
Author Name Unknown Organization [facility] Address [address] [facility] [address] Phone [phone] Care Team Providers Care Test Director Name Role Phone Irene Caldwell PA-C Primary Care Provider [phone]- [phone] Reason for Referral * Ancillary Services (Within 10 days (routine)) - Authorized Specialty Diagnoses / Procedures Referred By Terrell t Referred To Contact Cardiovascular Medicine Diagnoses Chest pain, unspecified type Areli Wilks MD [address] [place] [address] [place] [phone] Phone: tel: fax: Referral ID Status Reason Start Date Expiration Date Visits Requested Visits Authorized [id number] Authorized Ancillary Services Required 12/01/2024 999 [id number] Question Answer Referral Priority Within 10 days (routine) Where should this appointment be scheduled? [facility] What is the preferred location to have this test performed? [facility] How soon should this test be performed? 1 Week or Less Comments Not for rest Echo. Reason for Study (chest pain or anginal equivalent): Chest pain, no CAD: discordant clinical and imaging data Intermittent frequent chest pain over the last month, occurs with exertion. Had negative stress test in 2019. Select the preferred exam: No Preference Does the patient have a current EKG? Yes Does the patient have a prior history of a stent or bypass? No Lab Results Component Value Date/Time CREATININE - [facility]* 1.2 11/30/2023 10:47 AM CREATININE - GEISIN* 1.2 04/18/2020 11:20 AM CREATININE, RANDOM * 112 01/20/2023 07:59 AM Lab Results Component Value Date/Time BUN - [facility] 13 11/30/2023 10:47 AM SHARYN - [facility] 13 04/18/2020 11:20 AM Reason for Visit * Reason Comments Re-Check Encounter Details Date Type Department Care Team (Late st Contact Info) Description 12/01/2024 3:40 PM EST Office Visit [address] [place] [phone] Areli Wilks MD [address] [place] [address] [place] [phone] Chest pain, unspecified type*; Epigastric pain; Chronic intractable headache, unspecified headache type; Recurrent major depressive disorder, in partial remission (HCC); LAURA (generalized anxiety disorder); Hypertension goal BP (blood pressure) < 140/90; Dyslipidemia, goal LDL below 130; Gastroesophageal reflux disease without esophagitis Allergies Active Allergy Reactions Criticality Noted Date Comments No Known Drug Allergy 08/25/2010 documented as of this encounter (statuses as of 12/02/2024) Medications Sildenafil Citrate 100 MG Oral TabletIndication s:Erectile dysfunction, unspecified erectile dysfunction type TAKE ONE TABLET BY MOUTH 1-4 HOURS PRIOR TO INTERCOURSE . NO MORE THAN 1 TABLET EVERY 24 HOURS 6 Tablet 5 02/18/20 23 Active Pantoprazole Sodium 40 MG Oral Tablet Delayed Release (Protonix)Indica tions:Gastroesop hageal reflux disease without esophagitis,Hiat al hernia TAKE 1 TABLET BY MOUTH EVERY DAY 30 MIN BEFORE FIRST MEAL OF THE DAY 90 Tablet 3 12/16/19 24 Active Lisinopril 20 MG Oral Tablet (Prinivil)Indica tions:HTN, goal below 140/90 TAKE 1 TABLET BY MOUTH EVERY DAY 90 Tablet 2 03/17/20 24 Active amLODIPine Besylate 5 MG Oral Tablet (Norvasc) TAKE 1 TABLET BY MOUTH EVERY DAY 90 Tablet 3 04/01/20 24 Active Citalopram Hydrobromide 20 MG Oral Tablet (CeleXA)Indicati ons:Generalized anxiety disorder TAKE 1 TABLET BY MOUTH EVERY DAY 90 Tablet 3 04/01/20 24 Active Atorvastatin Calcium 40 MG Oral Tablet (Lipitor)Indicat ions:Dyslipidemi a, goal LDL below 130 TAKE 1 TABLET BY MOUTH EVERY DAY IN THE MORNING 90 Tablet 11/09/19 25 Active clonazePAM 1 MG Oral Tablet (KlonoPIN)Indica tions:Insomnia TAKE 1 TABLET BY MOUTH EVERY DAY NEEDED FOR ANXIETY 30 Tablet 11/14/19 25 Active predniSONE 10 MG Oral Tablet (Deltasone) Take as tapered dose over 12 days. 6-6-5-5-4-4 -3-3-2-2-1- 1 42 Tablet 09/04/20 24 025 Discontinued documented as of this encounter (statuses as of 12/02/2024) Active Problems Problem Noted Date Diagnosed Date [...] as of this encounter (statuses as of 12/02/2024) Resolved Problems Problem Noted Date Diagnosed Date Resolved Date Acute serous otitis media of right ear 09/08/2019 03/10/2021 Dyslipidemia, goal to be determined 10/01/2009 02/12/2010 Overview (10/01/2009): Per Lipid Taxonomy. DERMATITIS - ECZEMATOUS 08/14/2009 11/0 12/2016 Benign neoplasm of colon 02/24/200708/2018 Overview (03/01/2007): hyperplastic polyp--repeat 5 years ADVANCE DIRECTIVE INFORMATION 01/28/2006 08/28/2024 Overview (01/28/2006): No, Advance Directive brochure offered , patient declined. OSTEOARTHROS NOS-SHLDER 04/26/200302/22 Mixed dyslipidemia 12/06/2001 9 Overview (10/01/2009): Per Lipid Taxonomy. Dermatitis 08/14/2009 Mixed dyslipidemia 7 documented as of this encounter (statuses as of 12/02/2024) Immunizations Name Administration Dates Next Due COVID-19 mRNA, LNP-s, No Pre serve, 2-Dose Series ([employer]) 09/30/2021,01/18/2021,12/21/2020 COVID-19, MRNA-LNP, PF, 30 M CG/0.3 mL, 12 YRS AND ABOVE, IM ([employer]) 11/23/2023 Covid-19, Mrna, Lnp-s, Pf, B ivalent, [...] AM EDT documented as of this encounter Last Filed Vital Signs Vital Sign Reading Time Taken Comments Blood Pressure 120/75 12/01/2024 3:41 PM EST Pulse 60 12/01/2024 3:41 PM EST Temperature 36.5 C (97.7 F) 12/01/2024 3:41 PM ES T Respiratory Rate - - Oxygen Saturation 97% 12/01/2024 3:41 PM EST Inhaled Oxygen Concentration - - Weight 95.3 kg (210 lb) 12/01/2024 3:41 PM EST Height 172.7 cm (5' 8") 12/01/2024 3:41 PM EST Body Mass Index 31.93 12/01/2024 3:41 PM EST documented in this encounter Progress Notes * Areli Wilks MD - 12/01/2024 3:58 PM EST Subjective: Cal Hutchison is a 69 year old male. Chief Complaint Patient presents with Re-Check HPI: Brief Clinical History Mr. Hutchison is a 69 year old male last seen in [facility] on 08/03/2024 by Irene Caldwell He has a h/o the following chronic conditions indicated on the problem list: Chronic Conditions Recurrent major depressive disorder, in partial remission (HCC) Has been getting pain in the epigastric area and then it becomes pressure through his chest and then goes into his throat. Is not a burning sensation but it more like a pain in the throat. Gets some sharp pains in the left chest area as well. The first time it happened, it woke him up from sleep. It also sometimes happens while doing activity. Makes him short of breath. Last episode was last night. Has been happening daily and sometimes more than once a day. He will get the pressure by the timehe goes to the garage and carries a bag of pellets to the house and then it goes up his chest and into his throat. 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 It goes away with rest. Is starting to happen almost every time he exerts himself. Is not always very intense but happens to some degree. Takes pantoprazole and has been taking Tums for the pain but it does not help it at all and does not feel like the reflux he has had before. The throat feels funny all the time. Is not as active because he gets the pain when walking. Has been getting a lot of headaches for about 6 months now. They are pretty severe and Tylenol doesnot touch them. Has been checking blood pressure and sometimes it is a little high. The highest hasbeen 150/90. They are more on the right side of his head. Denies any vision changes. Has never had headaches before. Has a headache every day now. He has been taking extra-strength Tylenol every 6 hours a day. Drinks about 2 cups a coffee a day and has not changed the amount. States his gets headaches too but they are not uncommon for her. Has pellet stove and electric heat. Does not have carbon monoxide detector. Has a lot of anxiety. Is on citalopram and Clonazepam. Sleeping ok at night. Does not worry about things like he used to before taking the medication. He feels the doses are good. Was in ED 02/2024 after syncope while working outside. Diagnosed with dehydration. Had negative troponin x 2 at that time. Was not getting chest pain at that time. Results for orders placed or performed in visit on 11/30/23 COMPREHENSIVE METABOLIC PANEL Result Value Ref Range BUN 13 6 - 20 mg/dL CREATININE 1.2 0.6 - 1.2 mg/dL EGFR 65 >=60 mL/min SODIUM 136 135 - 146 mmol/L POTASSIUM 4.7 3.5 - 5.1 mmol/L CHLORIDE 100 98 - 107 mmol/L CO2 28 22 - 32 mmol/L ANION GAP 8 7 - 15 mmol/L GLUCOSE 102 70 - 120 mg/dL Albumin 4.3 3.8 - 5.0 g/dL AST 19 10 - 50 U/L Alkaline Phosphatase 51 35 - 130 U/L Bilirubin, Total 0.7 <=1.2 mg/dL CALCIUM 9.3 8.4 - 10.2 mg/dL Protein 6.9 6.0 - 8.3 g/dL ALT 25 10 - 50 U/L LIPID PANEL WITH DIRECT LDL IF TG IS HIGH Result Value Ref Range Triglycerides 60 <=174 mg/dL Cholesterol 165 <200 mg/dL HDL Cholesterol 70 >39 mg/dL Non-HDL Cholesterol 95 <=159 mg/dL LDL Cholesterol 83 <=129 mg/dL PSA Result Value Ref Range PSA 0.34 <4.10 ng/mL PHM: Patient Active Problem List Diagnosis Gastroesophageal reflux disease without esophagitis Insomnia LAURA (generalized anxiety disorder) Arthritis of right acromioclavicular joint Hiatal hernia Dyslipidemia, goal LDL below 130 DDD (degenerative disc disease), cervical Obesity, Class I, BMI 30.0-34.9 (see actual BMI) Right bundle branch block (RBBB) on electrocardiogram (ECG) Deviated nasal septum Hypertension goal BP (blood pressure) < 140/90 Congenital single kidney Daily consumption of alcohol Recurrent major depressive disorder, in partial remission (HCC) Current Outpatient Medications Medication Sig Dispense Refill Sildenafil Citrate 100 MG Oral Tablet TAKE ONE TABLET BY MOUTH 1-4 HOURS PRIOR TO INTERCOURSE. NO MORE THAN 1 TABLET EVERY 24 HOURS 6 Tablet 5 Pantoprazole Sodium 40 MG Oral Tablet Delayed Release (Protonix) TAKE 1 TABLET BY MOUTH EVERY DAY 30 MIN BEFORE FIRST MEAL OF THE DAY 90 Tablet 3 Lisinopril 20 MG Oral Tablet (Prinivil) TAKE 1 TABLET BY MOUTH EVERY DAY 90 Tablet 2 amLODIPine Besylate 5 MG Oral Tablet (Norvasc) TAKE 1 TABLET BY MOUTH EVERY DAY 90 Tablet 3 Citalopram Hydrobromide 20 MG Oral Tablet (CeleXA) TAKE 1 TABLET BY MOUTH EVERY DAY 90 Tablet 3 Atorvastatin Calcium 40 MG Oral Tablet (Lipitor) TAKE 1 TABLET BY MOUTH EVERY DAY IN THE MORNING 90Tablet 0 clonazePAM 1 MG Oral Tablet (KlonoPIN) TAKE 1 TABLET BY MOUTH EVERY DAY NEEDED FOR ANXIETY 30 Tablet 0 No current facility-administered medications for this visit. Past Medical History: Diagnosis Date Arthritis of right acromioclavicular joint ATOPIC DERMATITIS Benign neoplasm of colon 02/24/07 hyperplastic polyp--repeat 5 years Benign neoplasm of colon 11/03/2012 COLONOSCOPY FLEXIBLE PROXIMAL DIAGNOSTIC performed by Kel Sandhu MD at [facility], path shows adenomatous polyp repeat in 5 years Circumscribed scleroderma lichen simplex chronicus Esophageal reflux Hiatal hernia Insomnia, unspecified Mixed dyslipidemia Osteoarthrosis involving shoulder region Other anxiety states Past Surgical History: Procedure Laterality Date COLONOSCOPY 07/15/2022 sigmoid diverticulosis, 1 mm colon polyp repeat 10 years COLONOSCOPY W/ BIOPSY (RECTUM) 02/24/2007 hyperplastic polyp--repeat 5 years COLONOSCOPY, DIAGNOSTIC (RECTUM) 11/03/2012 inflammation on bx, sm HH/COLONOSCOPY FLEXIBLE PROXIMAL DIAGNOSTIC performed by Kel Sandhu MD at [facility], path shows adenomatous polyp repeat in 5 years COLONOSCOPY, DIAGNOSTIC (RECTUM) 07/10/2016 microscopic colitis/COLONOSCOPY FLEXIBLE PROXIMAL DIAGNOSTIC performed by Du Richards MDat [facility] COLONOSCOPY, DIAGNOSTIC (RECTUM) 07/15/2022 benign adenomatous polyp, repeat 10 yrs / COLONOSCOPY FLEXIBLE PROXIMAL DIAGNOSTIC performed by Du Richards MD at [facility] DENTAL SURGERY PROCEDURE NEC [place] teeth EGD, FLEXIBLE, DIAGNOSTIC 04/17/2016 ESOPHAGOGASTRODUODENOSCOPY (EGD), FLEXIBLE, TRANSORAL, DIAGNOSTIC performed by Kel Sandhu MD at [facility] KNEE ARTHROSCOPY, DIAGNOSTIC Right Knee Arthroscopy NECK SPINE FUSION (CERV, BELOW C2) Dr. Hankins REMOVE CATARACT, INSERT LENS PROSTH Right 06/03/2023 RIGHT EXTRACAPSULAR CATARACT REMOVAL WITH INTRAOCULAR LENS performed by Nish Goel MD at [facility] REMOVE CATARACT, INSERT LENS PROSTH Left 07/08/2023 LEFT EXTRACAPSULAR CATARACT REMOVAL WITH INTRAOCULAR LENS performed by Nish Goel MD at [facility] SHOULDER SURGERY PROCEDURE NEC Bilateral Shoulder Surgery, Open (left pinning, right arthroscopy) SPINAL FUSION, LUMBAR, COMBINED 2005 Dr. Hankins--fusion L4-5 Social History Socioeconomic History Marital status: Spouse name: Not on file Number of children: Not on file Years of education: Not on file Highest education level: Not on file Occupational History Not on file Tobacco Use Smoking status: Former Current packs/day: 0.00 Average packs/day: 1 pack/day for 25.0 years (25.0 ttl pk-yrs) Types: Cigarettes Start date: 10/25/1975 Quit date: 10/25/2000 Years since quittin.1 Smokeless tobacco: Never Tobacco comments: one pack per week-or less/ exposed to 's passive smoke Vaping Use Vaping status: Never Used Substance and Sexual Activity Alcohol use: Yes Comment: 6-12 Beers per day Drug use: No Comment: marijuana in 70s Sexual activity: Yes Partners: Female Other Topics Concern Not on file Social History Narrative [employer] INFORMATION ENVIRONMENTAL HISTORY: Type of Home: One Story Type of Heating System: Electric, Wood and [place] Air Conditioning: Yes Patient's bedroom and Living room Basement: Finished, Dampness and Dehumidifier Home have cockroaches: No Irritants in the home: Scented Candles, Scented air fresheners and Potpourri Patient's bedroom location: Floor: first Type of glenda: Carpeting Beds: Number: 1 Type of beds: Waterbed Pillows: Number: 1 Type of pillows: Foam Bedroom contains: Stuffed animals and Collectibles (knicknacks) Pets: 1 dog(s) Lives on a farm: No 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 Entered by: Elijah Musa MD 07/22/2009 Social Needs Financial Resource Strain: Low Risk (11/10/2023) Financial Resource Strain Do you have any trouble paying for your medications, or do you think you might in the future? (Adult - for ages 18 years and over): No Does your family have trouble paying for medicine? (Household - for ages 0-17 years): Not on file Food Insecurity: No Food Insecurity (11/10/2023) Food Insecurity Do you need food for this week? (Adult - for ages 18 years and over): No Are you able to get enough food for your family? (Household - for ages 0-17 years): Not on file Does your family need food this week? (Household - for ages 0-17 years): Not on file Do you always have enough food for your family? (Household - for ages 0-17 years): Not on file Transportation Needs: No Transportation Needs (11/10/2023) Transportation Needs Do you have trouble getting a ride to medical visits or work? (Adult - for ages 18 years and over):Never True Does your family have a hard time getting a ride to doctors visits? (Household - for ages 0-17 years): Not on file Has lack of transportation kept you from medical appointments, meetings, work, or from getting things needed for daily living? Check all that apply. (Adult - for ages 18 years and over): Not on file Do you (or your family) have trouble finding or paying for a ride (transportation)? (Household - for ages 0-17 years): Not on file Social Connections: Socially Integrated (11/10/2023) Social Connections How often do you feel lonely or isolated from those around you? (Adult - for ages 18 years and over): Never Housing Stability: Low Risk (11/10/2023) Housing Stability Do you currently live in a snf or have no steady place to sleep at night? (Adult - for ages 18 years and over): No Do you think you are at risk of becoming homeless? (Adult - for ages 18 years and over): No Does your family worry about paying for your home or becoming homeless? (Household - for ages 0-17 years): Not on file Are you homeless or worried that you might be in the future? (Adult - for ages 18 years and over): Not on file Are you (or your family) homeless or worried that you might be in the future? (Household - for ages0-17 years): Not on file Review of patient's allergies indicates: Allergen Reactions No Known Drug Allergy Objective: BP 120/75 | Pulse 60 | Temp 97.7 F (36.5 C) (Tympanic) | Ht 5' 8" (1.727 m) | Wt 210 lb (95.3 kg) | SpO2 97% | BMI 31.93 kg/m | BSA 2.14 m Physical Exam: General: alert, no distress, well nourished, and well developed Head: Normocephalic, No masses, lesions, tenderness or abnormalities Eye Exam: PERRLA, extraocular movements intact, conjunctiva are pink and non- injected, sclera clear Ears: External ears normal, Canals clear, TM's Normal Nose: no mucosal erythema, no mucosal edema, no purulent discharge Oropharynx: no exudate, no erythema, lips, buccal mucosa, and tongue normal, and mucous membranes are moist Neck: supple, no adenopathy, no bruits Heart: regular rate & rhythm, no murmur, and no gallops Lungs: chest symmetric with normal AP diameter, no chest deformities noted, no chest wall tenderness, lungs clear to auscultation Extremities: no edema, no clubbing, no cyanosis Neuro Exam: alert & oriented x 3 with fluent speech, no focal motor/sensory deficits, gait normal Extensive ROS Constitutional (f/c/wt/vision/hearing): Negative Resp (cough/sob/zamora): see above hpi CV (cp/palp/fluttering/diaphoresis/zamora/pnd):see above hpi GI (n/v/d/hrtburn): see above hpi Endo (hair/cold or heat intol/ 3 p's): Negative Neuro (shaking/weak/fatigu/parasthesi/): Negative Skin (rash/easy bruis/xerosis): Negative Psy (si/hi/halluc/): see above hpi (nocturia/hesit/drib/sexual review): Negative Lymph (swollen glands/b sx's/: Negative ASSESSMENT: Chest pain, unspecified type (Primary)--patient with chest pain that starts epigastric and becomes pressure across his chest and up into his throat. Mostly is exertional and improves with rest. Last stress test was 2019 and was negative. EKG today with left axis deviation and nonspecific intraventricular block and repeat with RBBB, both similar to previous EKGs. Will refer to another stress test.Discussed cardiology referral but declines at this time. Check labs today. To ED with chest pain that is worse or does not resolve quickly with rest. - EKG; Future; Expected date: 12/01/2024 - CAD IMAGING REFERRAL OP - CBC WITH WBC DIFFERENTIAL AND ANEMIA REFLEX WORKUP; Future; Expected date: 12/01/2024 - COMPREHENSIVE METABOLIC PANEL; Future; Expected date: 12/01/2024 Epigastric pain--check lipase. - LIPASE; Future; Expected date: 12/01/2024 Chronic intractable headache, unspecified headache type--has been taking Tylenol about 2 times a day. Could be medication overuse. No h/o of similar headaches in the past. also gets headaches. Will also get carbon monoxide detector. If headaches not improving after stopping tylenol and CO is negative, would consider MRI of the brain. Recurrent major depressive disorder, in partial remission (HCC)--controlled with citalopram 40 mg daily. LAURA (generalized anxiety disorder)--continue citalopram 40 mg daily. Also takes clonazepam as needed. Hypertension goal BP (blood pressure) < 140/90--controled with amlodipine 5 mg daily and lisinopril 20 mg daily. - COMPREHENSIVE METABOLIC PANEL; Future; Expected date: 12/01/2024 Dyslipidemia, goal LDL below 130--controlled with atorvastatin 40 mg daily. Check labs. - LIPID PANEL WITH DIRECT LDL IF TG IS HIGH; Future; Expected date: 12/01/2024 Gastroesophageal reflux disease without esophagitis--denies the chest pain being a burning. Denies heartburn with pantoprazole 40 mg daily. However, if stress tset is negative and continues to have chest pain, would consider EGD. Follow Up: Return in about 6 months (around 05/31/2025). PLAN: Continue present medication(s): Discontinue medication(s): Tylenol for possible medication overuse headaches. Study(ies) ordered: CAD imaging referral and EKG Schedule labs: CBC w/diff, CMP, lipid panel, and lipase Patient education: Discussed chest pain and stress testing at length. Reviewed EKGs. Discussed proceeding to ED with worsening or unrelenting chest pain. Discussed headaches at length and will message one month after stopping Tylenol to see if headaches are improved or not. Will also check house for CO. If headaches still persist, would recommend MRI for new onset severe headaches. Follow up: in 6 month(s). Areli Wilks MD I spent a total of 40-54 minutes (exact time 45 mins) on the date of service in preparation, delivery, and documentation of the care provided to Cal Hutchison excluding any time spent in the performance of separately billed services or time spent by another provider/QHP. documented in this encounter Nursing Notes * Tiff Hung LPN - 12/01/2024 3:43 PM EST Return Having indigestion & pain with it- but not burning sensation In middle under rib cage Then throat hurts, but not like a sore throat Still has gallbladder documented in this encounter Plan of Treatment Upcoming Encounters Date Type Department Care Team (Late st Contact Info) Description 06/05/2025 10:20 AM EDT Office Visit Family [address] [place] [phone] Irene Caldwell PA-C [address] [place] [address] [place] [phone] Pending Results Name Type Priority Associated Diagnoses Date /Time COMPREHENSIVE METABOLIC PANEL Lab Routine Hypertension goal BP (blood pressure) < 140/90 Chest pain, unspecified type 12/01/2024 4:24 PM EST LIPASE Lab Routine Epigastric pain 12/01/2024 4:24 PM EST LIPID PANEL WITH DIRECT LDL IF TG IS HIGH Lab Routine Dyslipidemia, goal LDL below 130 12/01/2024 4:24 PM EST Scheduled Orders Name Type Priority Associated Diagnoses Orde r Schedule EKG EKG Routine Chest pain, unspecified type Expected: 12/01/2024 (Approximate), Expires: 12/29/2025 COMPREHENSIVE METABOLIC PANEL Lab Routine Hypertension goal BP (blood pressure) < 140/90 Dyslipidemia, goal LDL below 130 Chest pain, unspecified type Expected: 12/01/2024 (Approximate), Expires: 12/01/2025 LIPASE Lab Routine Epigastric pain Expected: 12/01/2024 (Approximate), Expires: 12/01/2025 LIPID PANEL WITH DIRECT LDL IF TG IS HIGH Lab Routine Dyslipidemia, goal LDL below 130 Expected: 12/01/2024, Expires: 12/01/2025 Scheduled Procedures Name Priority Associated Diagnoses Date/Ti me COLONOSCOPY FLEXIBLE PROXIMAL DIAGNOSTIC Recall History of colon polyps Scheduled Referrals Name Type Priority Associated Diagnoses Orde r Schedule CAD IMAGING REFERRAL OP Referral Within 10 days (routine) Chest pain, unspecified type Ordered: 12/01/2024 Health Maintenance Due Date Last Done Comments [...] this encounter Medical Devices Implanted Type Area Medical Laboratory Manager Device Identifier Shelf Expiration Date Model / Serial / Lot Lens Li61ao 13.00mm 21.50 - [id number] - [id number] Implanted:Qty: 1 on 06/03/2023 by Nish Goel MD at [facility] Right: Eye [employer] 12/23/2027 [id number] / [id number] / [id number] Lens Li61ao 13.00mm 21.00 - [id number] - [id number] Implanted:Qty: 1 on 07/08/2023 by Nish Goel MD at [facility] Left: Eye [employer] 02/22/2028 [id number] / [id number] / [id number] documented as of this encounter Visit Diagnoses Diagnosis Chest pain, unspecified type- Primary Epigastric pain Abdominal pain, epigastric Chronic intractable headache, unspecified headache type Recurrent major depressive disorder, in partial remission (HCC) LAURA (generalized anxiety disorder) Generalized anxiety disorder Hypertension goal BP (blood pressure) < 140/90 Unspecified essential hypertension Dyslipidemia, goal LDL below 130 Other and unspecified hyperlipidemia Gastroesophageal reflux disease without esophagitis Esophageal reflux documented in this encounter Advance Directives * [...] Power of Attor magui? No Care Teams Test Director Relationship Specialty Start Date End Date Irene Caldwell PA-C [address] [place] [address] [place] [phone] PCP - General Physician Newborn Photographer 11/01/24 documented as of this encounter
--- OUTSIDE RECORDS SUMMARY | 2025-01-02 15:29 | External Medical Summary | Summary of Care ---
Author Name Unknown Organization [facility] Address [address] [place] [address] Phone [phone] Care Team Providers Care Segment Assembler Name Role Phone Irene Caldwell PA-C Primary Care Provider [phone]- [phone] Reason for Referral * Precert (Diagnostic Medical) (Within 10 days (routine)) - Authorized Specialty Diagnoses / Procedures Referred By Contac t Referred To Contact Cardiac Studies Diagnoses Exertional chest pain Nonspecific abnormal electrocardiogram (ECG) (EKG) Right bundle branch block (RBBB) on electrocardiogram (ECG) Dyslipidemia, goal LDL below 130 Hypertension goal BP (blood pressure) < 140/90 Procedures ECHO, COMPLETE (2D), TRANS-THORACIC Tera Rea MD [address] [place] [address] Phone: tel: fax: Referral ID Status Reason Start Date Expiration Date V isits Requested Visits Authorized [id number] Authorized Precert 12/11/2024 999 999 * Precert (Within 10 days (routine)) - Authorized Specialty Diagnoses / Procedures Referred By Contac t Referred To Contact Radiology Diagnoses Exertional chest pain Nonspecific abnormal electrocardiogram (ECG) (EKG) Right bundle branch block (RBBB) on electrocardiogram (ECG) Dyslipidemia, goal LDL below 130 Hypertension goal BP (blood pressure) < 140/90 Procedures NM MYOCARDIAL PERFUSION SPECT MULTIPLE STUDIES Tera Rea MD [address] [place] [address] Phone: tel: fax: Referral ID Status Reason Start Date Expiration Date V isits Requested Visits Authorized [id number] Authorized Precert 12/11/2024 999 999 Encounter Details Date Type Department Care Team (Latest Contact Info) Description 12/04/2024 Orders Only Cardiology, [facility] [address] [place] [address] Tera Rea MD [address] [place] [address] Exertional chest pain*; Nonspecific abnormal electrocardiogram (ECG) (EKG); Right bundle branch block (RBBB) on electrocardiogram (ECG); Dyslipidemia, goal LDL below 130; Hypertension goal BP (blood pressure) < 140/90 Allergies Active Allergy Reactions Criticality Noted Date Comments No Known Drug Allergy 08/25/2010 documented as of this encounter (statuses as of 12/04/2024) Medications Sildenafil Citrate 100 MG Oral TabletIndications [...] as of this encounter (statuses as of 12/04/2024) Active Problems Problem Noted Date Diagnosed Date [...] as of this encounter (statuses as of 12/04/2024) Resolved Problems Problem Noted Date Diagnosed Date [...] as of this encounter (statuses as of 12/04/2024) Immunizations Name Administration Dates Next Due COVID-19 mRNA, LNP-s, No Pre serve, 2-Dose Series ([employer]) 09/30/2021,01/18/2021,12/21/2020 COVID-19, MRNA-LNP, PF, 30 M CG/0.3 [...] AM EDT documented as of this encounter Progress Notes * Madhavi Fontenot TECH - 12/04/2024 2:45 PM EST CAD Imaging Referral Note Cal Hutchison is a 69 year old male who was referred by Dr. Areli Wilks for evaluation of exertional chest pain. Reviewing Gold Layer: Dr. Tera Rea Orders placed: Nuclear Stress test and Echocardiogram Test location: [facility] or [facility] location Referral priority: 1 week or less From Dr. Wilks's Progress Note on 12/01/2024: HPI: Brief Clinical History Mr. Hutchison is [...] Had an episode while working in the [employer] with his son where he got short [...] not getting chest pain at that time. Patient Active Problem List Diagnosis Gastroesophageal reflux disease without esophagitis Insomnia LUARA (generalized anxiety disorder) Arthritis of right acromioclavicular [...] No current facility-administered medications for this visit. The 10-year ASCVD risk score (Leny DK, et al., 2019) is: 13.6% Values used to calculate the score: Age: 69 years Sex: Male Is Non- : No Diabetic: No Tobacco smoker: No Systolic Blood Pressure: 120 mmHg Is BP treated: Yes HDL Cholesterol: 75 mg/dL Total Cholesterol: 175 mg/dL Cardiac Studies: EKG 12/01/2024 CONCLUSIONS: Sinus bradycardia Left axis deviation Right bundle branch block Abnormal ECG When compared with ECG of 21-Mar-2020 08:37, No significant change was found Ventricular Rate: 57 Atrial Rate: 57 FL Interval: 156 QRS Duration: 156 QT/QTc: 470/457 ms P-R-T [place]: 73 : -36 : 38 degrees Exercise Echo 03/29/2020 Interpretation Summary The examination is adequate to evaluate the referral indication. The stress echo is negative for inducible ischemia. Exercise capacity is average . Heart rate response to stress was normal. *Rest hypertension is present with markedly hypertensive blood pressure response to exercise Interventricular conduction delay was noted at rest. Stress EKG was nondiagnostic secondary to underlying conduction abnormalities Occasional PVCs were noted with stress. The left ventricular wall motion is normal. The left ventricular wall motion with stress is normal. The left ventricular ejection fraction increases normally with stress. The LV wall thickness is mildly increased (concentric). The qualitative LV ejection fraction is 55-59% (normal). The left ventricular diastolic function is mildly abnormal (grade I). The left atrium is moderately enlarged. Stress Findings Stress EKG was nondiagnostic secondary to underlying conduction abnormalities. Occasional PVCs werenoted with stress. Sinus rhythm was noted at rest. Interventricular conduction delay was noted at rest. The stress test was terminated due to fatigue. Exercise capacity is average . Heart rate response to stress was normal. Rest hypertension is present with markedly hypertensive blood pressure response to exercise. Echocardiogram 06/30/2018 Interpretation Summary The primary indication after review was deemed appropriate and the examination was performed. Normal LV chamber size with mild concentric LVH. Normal LV systolic function without regional wall motion abnormality, EF 55-60%. Grade I diastolic dysfunction. Mild aortic valve sclerosis without stenosis. Mild mitral regurgitation. Mild left atrial enlargement. Madhavi Fontenot MS, [facility] Casualty Claims Supervisor, Cardiology Imaging Program documented in this encounter Plan of Treatment Upcoming Encounters Date Type Department Care Team (Late st Contact Info) Description 06/05/2025 10:20 AM EDT Office Visit [address] [place] [phone] Irene Caldwell PA-C [address] [place] [address] [place] [phone] Scheduled Orders Name Type Priority Associated Diagnoses Orde r Schedule NM MYOCARDIAL PERFUSION SPECT MULTIPLE STUDIES Cardiology Routine Exertional chest pain Nonspecific abnormal electrocardiogram (ECG) (EKG) Right bundle branch block (RBBB) on electrocardiogram (ECG) Dyslipidemia, goal LDL below 130 Hypertension goal BP (blood pressure) < 140/90 Expected: 12/11/2024, Expires: 01/01/2026 ECHO, COMPLETE (2D), TRANS-THORACIC Echocardiology Routine Exertional chest pain Nonspecific abnormal electrocardiogram (ECG) (EKG) Right bundle branch block (RBBB) on electrocardiogram (ECG) Dyslipidemia, goal LDL below 130 Hypertension goal BP (blood pressure) < 140/90 Expected: 12/11/2024 (Approximate), Expires: 12/04/2025 Scheduled Procedures Name Priority Associated Diagnoses Date/Ti me COLONOSCOPY FLEXIBLE PROXIMAL DIAGNOSTIC Recall History of colon polyps Health Maintenance Due Date Last Done Comments Cologuard 2000 Fecal Occult Blood Test 2000 Sigmoidoscopy 2000 Adult Wellness Visit 2021 Pneumococcal Vaccine: 50+ Years (2 of 2 - PCV) 09/10/2022 09/10/2021 COVID-19 Vaccine (2023- season) 2024 11/23/2023, 09/08/2022, 09/30/2021, Additional history exists Depression Monitoring 12/01/2025 12/01/2024 GFR 12/01/2025 12/01/2024, 0 03/2024, 01/20/2023, Additional history exists Albumin/Creatinine Ratio 01/20/2026 01/20/2023, 02/23 Colonoscopy 07/15/2027 07/15/2022, 06/26, 07/10/2016, Additional history exists Colorectal Cancer Screening 07/15/2027 Diabetes Screening 12/01/2027 12/01/2024, 0 11/30/2023, 01/20/2023, Additional history exists DTap/Tdap Vaccines (3 - Td or Tdap) 02/17/2029 02/17/2019, 07/12/2008 Lipid Panel 12/01/2029 12/01/2024, 02/0 03/2024, 01/20/2023, Additional history exists AAA Screening Completed 03/14/2021 RETIRED - COLONOSCOPY-EVERY [...] this encounter Medical Devices Implanted Type Area Mathematician Device Identifier Shelf Expiration Date Model / Serial / Lot Lens Li61ao 13.00mm 21.50 - [id number] - [id number] Implanted:Qty: 1 on 06/03/2023 by Nish Goel MD at OR [facility] Right: Eye [employer] 12/23/2027 [id number] / [id number] / [id number] Lens Li61ao 13.00mm 21.00 - [id number] - [id number] Implanted:Qty: 1 on 07/08/2023 by Nish Goel MD at OR [facility] Left: Eye [employer] 02/22/2028 [id number] / [id number] / [id number] documented as of this encounter Visit Diagnoses Diagnosis Exertional chest pain- Primary Chest pain, unspecified Nonspecific abnormal electrocardiogram (ECG) (EKG) Right bundle branch block (RBBB) on electrocardiogram (ECG) Dyslipidemia, goal LDL below 130 Other and unspecified hyperlipidemia Hypertension goal BP (blood pressure) < 140/90 Unspecified essential hypertension documented in this encounter Advance Directives * [...] Power of Attor magui? No Care Teams Segment Assembler Relationship Specialty Start Date End Date Irene Caldwell PA-C [address] [place] [address] [place] [phone] PCP - General Physician Rn Team Leader 11/01/24 documented as of this encounter
--- OUTSIDE RECORDS SUMMARY | 2025-01-02 15:29 | External Medical Summary ---
Author Name Unknown Address Unknown Organization [id number]:LABORATORY [facility] [place] - [address] [facility] [place] [address] Laboratory Report Ordering Provider Test Date Status ALISA GRIDER 12/01/2024 16:24:30 Final Observation Date Value Abnormality Reference (Units ) Status BUN 12/01/2024 16:24:30 12 6-20 (mg/dL) Final Creatinine 12/01/2024 16:24:30 1.1 0.6-1.2 (mg/dL) Final Glomerular filtration rate/1.73 sq M.predicted [Volume Rate/Area] in Serum, Plasma or Blood by Creatinine-based formula (CKD-EPI) 12/01/2024 16:24:30 71 >=60 (mL/min) Final eGFR is calculated based on the CKD-EPI 2020 equation. Sodium 12/01/2024 16:24:30 136 135-146 (m mol/L) Final Potassium 12/01/2024 16:24:30 4.0 3.5-5.1 (m mol/L) Final Cl 12/01/2024 16:24:30 102 98-107 (mm ol/L) Final CO2 12/01/2024 16:24:30 25 22-32 (mmo l/L) Final Anion gap 12/01/2024 16:24:30 9 7-15 (mmol /L) Final Glucose 12/01/2024 16:24:30 99 70-120 (mg /dL) Final Albumin 12/01/2024 16:24:30 4.6 3.8-5.0 (g /dL) Final AST (Aspartate aminotransferase) 12/01/2024 16:24:30 20 10-50 (U/L) Final Alk Phos 12/01/2024 16:24:30 50 35-130 (U/ L) Final Bilirubin, Total 12/01/2024 16:24:30 1.0 <=1 .2 (mg/dL) Final Calcium 12/01/2024 16:24:30 9.5 8.4-10.2 ( mg/dL) Final Protein 12/01/2024 16:24:30 7.1 6.0-8.3 (g /dL) Final ALT (Alanine aminotransferase) 12/01/2024 16:24:30 28 10-50 (U/L) Final Performing Location LABORATORY [facility] - [address] [facility] [address]
--- OUTSIDE RECORDS SUMMARY | 2025-01-02 15:29 | External Medical Summary | Summary of Care ---
Author Name Unknown Organization [facility] Address [address] [address] Phone [phone] Care Team Providers Care [employer] Supervisor Name Role Phone Irene Caldwell PA-C Primary Care Provider +1- [phone] Reason for Visit * Reason Comments eRx-Medication Refill Encounter Details Date Type Department Care Team (Late st Contact Info) Description 12/13/2024 Refill Family Medicine [address] [place] [phone] Marni Wilks MD [address] [place] [address] [place] [address] Insomnia Allergies Active Allergy Reactions Criticality Noted Date Comments No Known Drug Allergy 08/25/2010 documented as of this encounter (statuses as of 12/14/2024) Medications Sildenafil Citrate 100 MG Oral TabletIndication [...] EVERY DAY NEEDED FOR ANXIETY 30 Tablet 12/14/19 25 Active clonazePAM 1 MG Oral Tablet (KlonoPIN)Indica tions:Insomnia TAKE 1 TABLET BY MOUTH EVERY DAY NEEDED FOR ANXIETY 30 Tablet 11/14/19 25 025 Discontinued documented as of this encounter (statuses as of 12/14/2024) Active Problems Problem Noted Date Diagnosed Date [...] as of this encounter (statuses as of 12/14/2024) Resolved Problems Problem Noted Date Diagnosed Date [...] as of this encounter (statuses as of 12/14/2024) Immunizations Name Administration Dates Next Due COVID-19 mRNA, LNP-s, No Pre serve, 2-Dose Series ([employer]) 09/30/2021,01/18/2021,12/21/2020 COVID-19, MRNA-LNP, PF, 30 M CG/0.3 mL, 12 YRS AND ABOVE, IM (PFIZER-Comirnat) 11/23/2023 Covid-19, Mrna, Lnp-s, Pf, B ivalent, [...] AM EDT documented as of this encounter Miscellaneous Notes * Telephone Encounter - Marni Wilks MD - 12/14/2024 1:50 PM EST Signed Prescriptions: Disp Refills clonazePAM 1 MG Oral Tablet (KlonoPIN) 30 Tab*0 Sig: TAKE 1 TABLET BY MOUTH EVERY DAY NEEDED FOR ANXIETY Authorizing Provider: MARNI WILKS * Telephone Encounter - Irene Caldwell PA-C - 12/14/2024 1:23 PM ESTPending Prescriptions: Disp Refills clonazePAM 1 MG Oral Tablet [Pharmacy Med *30 Tab*0 Sig: TAKE 1 TABLET BY MOUTH EVERY DAY NEEDED FOR ANXIETY * Telephone Encounter - William Phillip [facility] - 12/14/2024 12:03 PM ESTPending Prescriptions: Disp Refills clonazePAM 1 MG Oral Tablet [Pharmacy Med *30 Tab*0 Sig: TAKE 1 TABLET BY MOUTH EVERY DAY NEEDED FOR ANXIETY * Telephone Encounter - William Phillip RPh - 12/14/2024 12:02 PM EST I have reviewed the patients controlled substance dispensing history in the Prescription Drug Monitoring Program in compliance with the [facility] regulations before prescribing a controlled substance. PDMP checked on 12/14/2024. Pending Prescriptions: Disp Refills clonazePAM 1 MG Oral Tablet (KlonoPIN) [P*30 Tab*0 Sig: TAKE 1 TABLET BY MOUTH EVERY DAY NEEDED FOR ANXIETY Last Visit: 12/01/2024 (in office), Visit date not found (telemedicine) Next Visit: 06/05/2025 Date medication was last filled: 11-15-24 Date medication is due for refill: 12-14-24 Pharmacy: [facility] #[id number] Is this request for a controlled substance? Yes and Urine Drug Screen Not completed Toxicology results: No results found for this or any previous visit. Please approve if appropriate. Odalis Cunningham.Ph. Clinical Pharmacist [facility] [address] [place] [address], [facility] [address] [place] [address] MC: [phone] 12/14/2024,12:02 PM documented in this encounter Plan of Treatment Upcoming Encounters Date Type Department Care Team (Late st Contact Info) Description 01/22/2025 12:30 PM EDT Imaging [facility] 2nd Floor Cardiology, [place] [address] [place] [phone] Gw, Excess Time Radiology [address] [place] [address] 06/05/2025 10:20 AM EDT Office Visit Family [address] [phone] Irene Caldwell PA-C [address] [place] [address] [place] [phone] Scheduled Procedures Name Priority Associated Diagnoses Date/Ti me COLONOSCOPY FLEXIBLE PROXIMAL DIAGNOSTIC Recall History of colon polyps Health Maintenance Due Date Last Done Comments Cologuard 2000 Fecal Occult Blood Test 2000 Sigmoidoscopy 2000 Pneumococcal Vaccine: 50+ Years (2 of 2 - PCV) 09/10/2022 09/10/2021 COVID-19 Vaccine (2023- season) 2024 11/23/2023, 09/08/2022, 09/30/2021, Additional history exists Depression Monitoring 12/01/2025 12/01/2024 GFR 12/01/2025 12/01/2024, 02/0 03/2024, 01/20/2023, Additional history exists Albumin/Creatinine Ratio [...] on patient's age to complete this topic Meningitis B Vaccine (Bexsero/Trumemba) Aged Out No longer eligible based on patient's age to complete this topic documented as of this encounter Medical Devices Implanted Type Area Manager Market Device Identifier Shelf Expiration Date Model / Serial / Lot Lens Li61ao 13.00mm 21.50 - [id number] - [id number] Implanted:Qty: 1 on 06/03/2023 by Nish Goel MD at OR [facility] Right: Eye [employer] 12/23/2027 [id number] / [id number] / [id number] Lens Li61ao 13.00mm 21.00 - [id number] - [id number] Implanted:Qty: 1 on 07/08/2023 by Nish Goel MD at OR [facility] Left: Eye [employer] 02/22/2028 [id number] / [id number] / [id number] documented as of this encounter Visit Diagnoses Diagnosis Insomnia Insomnia, unspecified documented in this encounter Advance Directives * [...] Power of Attor magui? No Care Teams [employer] Supervisor Relationship Specialty Start Date End Date Irene Caldwell PA-C [address] [place] [address] [place] [phone] PCP - General Physician [employer] Mercerizing Supervisor 11/01/24 12/13/24 documented as of this encounter
--- OUTSIDE RECORDS SUMMARY | 2025-01-02 15:29 | External Medical Summary ---
Author Name Unknown Address Unknown Organization K01:[facility] [place] [address] [facility] [address] Laboratory Report Ordering Provider Test Date Status ALISA GRIDER 12/01/2024 16:24:30 Final Observation Date Value Abnormality Reference (Units ) Status Triglyceride 12/01/2024 16:24:30 117 <=174 ( mg/dL) Final Triglyceride Reference Range s (mg/dL):
<150 Acceptable
150-174 Borderline high
175-499 High
>=500 Very high Cholesterol 12/01/2024 16:24:30 175 <200 (mg /dL) Final Total Cholesterol Reference Ranges (mg/dL):
<200 Desirable
200-239 Borderline high
>=240 High HDL 12/01/2024 16:24:30 75 >39 (mg/dL ) Final HDL Cholesterol Reference Ra nges (mg/dL):
>=60 High (Desirable)
<50 Low (Undesirable) For Females
<40 Low (Undesirable) For Males NON-HDL CHOLESTEROL 12/01/2024 16:24:30 100 <=159 (mg/dL) Final Non-HDL Cholesterol Referenc e Range (mg/dL):
<100 Target level for high risk ASCVD patient
<130 Optimal for general population
130-159 Near optimal for general population
160-189 Borderline High
190-219 High
>=220 Very High LDL, (calculated) 12/01/2024 16:24:30 77 <= 129 (mg/dL) Final LDL Cholesterol Reference Ra nges (mg/dL):
<70 Target level for high risk ASCVD patient
<100 Optimal for general population
100-129 Near optimal for general population
130-159 Borderline high
160-189 High
>=190 Very high Performing Location [facility] [place] [address] [facility] [address]
--- OUTSIDE RECORDS SUMMARY | 2025-01-02 15:29 | External Medical Summary ---
Author Name Unknown Address Unknown Organization K01:[facility] - [address] [id number] Laboratory Report Ordering Provider Test Date Status ALISA GRIDER 12/01/2024 16:24:30 Final Observation Date Value Abnormality Reference (Units ) Status Lipase 12/01/2024 16:24:30 39 13-60 (U/L ) Final Performing Location LAB[facility]ATORY [facility] - [address] [facility] [address]
--- OUTSIDE RECORDS SUMMARY | 2025-01-02 15:30 | External Medical Summary | Summary of Care ---
Author Name Unknown Organization [facility] Address [address] [place] [address] Phone [phone] Care Team Providers Care Patternmaker Hand Name Role Phone Marni Wilks MD Primary Care Provide r Reason for Visit * Reason Comments eRx-Medication Refill Encounter Details Date Type Department Care Team (Late st Contact Info) Description 08/14/2024 Refill Family Medicine [address] [place] [phone] Marni Wilks MD [address] [place] [address] [place] [address] Insomnia Allergies Active Allergy Reactions Criticality Noted Date Comments No Known Drug Allergy 08/25/2010 documented as of this encounter (statuses as of 08/16/2024) Medications Medication Sig Dispensed Refills Start Date End Date Status Sildenafil Citrate 100 MG Oral TabletIndications: Erectile dysfunction, unspecified erectile dysfunction type TAKE ONE TABLET BY MOUTH 1-4 HOURS PRIOR TO INTERCOURSE. NO MORE THAN 1 TABLET EVERY 24 HOURS 6 Tablet 5 02/17/2023 Active Atorvastatin Calcium 40 MG Oral Tablet (Lipitor)Indicatio ns:Dyslipidemia, goal LDL below 130 TAKE 1 TABLET BY MOUTH EVERY DAY IN THE MORNING 90 Tablet 3 08/22/2023 Active Pantoprazole Sodium 40 MG Oral Tablet Delayed Release (Protonix)Indicati ons:Gastroesophage al reflux disease without esophagitis,Hiatal hernia TAKE 1 TABLET BY MOUTH EVERY DAY 30 MIN BEFORE FIRST MEAL OF THE DAY 90 Tablet 3 12/16/2023 Active Lisinopril 20 MG Oral Tablet (Prinivil)Indicati ons:HTN, goal below 140/90 TAKE 1 TABLET BY MOUTH EVERY DAY 90 Tablet 2 03/17/2024 Active amLODIPine Besylate 5 MG Oral Tablet (Norvasc) TAKE 1 TABLET BY MOUTH EVERY DAY 90 Tablet 3 04/01/2024 Active Citalopram Hydrobromide 20 MG Oral Tablet (CeleXA)Indication s:Generalized anxiety disorder TAKE 1 TABLET BY MOUTH EVERY DAY 90 Tablet 3 04/01/2024 Active predniSONE 20 MG Oral Tablet (Deltasone)Indicat ions:Pain of left heel 2 tablets daily for 5 days then 1 tablet daily 15 Tablet 08/03/2024 Active clonazePAM 1 MG Oral Tablet (KlonoPIN)Indicati ons:Insomnia TAKE 1 TABLET BY MOUTH EVERY DAY NEEDED FOR ANXIETY 30 Tablet 08/16/2024 Active clonazePAM 1 MG Oral Tablet (KlonoPIN)Indicati ons:Insomnia TAKE 1 TABLET BY MOUTH EVERY DAY NEEDED FOR ANXIETY 30 Tablet 07/18/2024 08/16/2024 Discontinued documented as of this encounter (statuses as of 08/16/2024) Active Problems Problem Noted Date Diagnosed Date [...] 2017 Dyslipidemia, goal LDL below 130 08/27/2017 ADVANCE DIRECTIVE INFORMATION 01/28/2006 Overview: No, Advance Directive brochure offered , patient declined. Gastroesophageal reflux disease without esophagi tis 12/06/2001 Insomnia Overview: ICD-10 update of inactive term LAURA (generalized anxiety disorder) Arthritis of right acromioclavicular joint Hiatal hernia documented as of this encounter (statuses as of 08/16/2024) Resolved Problems Problem Noted Date Diagnosed Date Resolved Date Acute serous otitis media of right ear 09/08/2019 03/10/2021 Dyslipidemia, goal to be determined 10/01/2009 02/12/2010 Overview: Per Lipid Taxonomy. DERMATITIS - ECZEMATOUS 08/14/2009 11/0 12/2016 Benign neoplasm of colon 02/24/200708/2018 Overview: hyperplastic polyp--repeat 5 years OSTEOARTHROS NOS-SHLDER 04/26/200302/22 Mixed dyslipidemia 12/06/2001 9 Overview: Per Lipid Taxonomy. Dermatitis 08/14/2009 Mixed dyslipidemia 7 documented as of this encounter (statuses as of 08/16/2024) Immunizations Name Administration Dates Next Due COVID-19 mRNA, LNP-s, No Pre serve, 2-Dose Series ([employer]rogenex) 09/30/2021,01/18/2021,12/21/2020 COVID-19, MRNA-LNP, 23-24, P F, 30 MCG/0.3 mL, 12 YRS AND ABOVE, IM ([employer]-Comirnat) 11/23/2023 Covid-19, Mrna, Lnp-s, Pf, B ivalent, [...] Date Recorded PHQ Adult Total Score 0 09/10/2021 Hunger Vital Sign Answer Date Recorded Worried About Running Out of Food in the Last Ye ar Never true 03/21/2020 Ran Out of Food in the Last Year Never true 03/21/2020 Sex and Gender Information Value Date Recorded Sex Assigned at Male 03/11/2022 8:24 AM EDT Gender Identity Male 03/11/2022 8:24 AM EDT Sexual Orientation Straight 03/11/2022 8: 24 AM EDT Job Start Date Occupation Industry Not on file Not on file Not on file documented as of this encounter Miscellaneous Notes * Telephone Encounter - Marni Wilks MD - 08/16/2024 10:44 AM EDT Signed Prescriptions: Disp Refills clonazePAM 1 MG Oral Tablet (KlonoPIN) 30 Tab*0 Sig: TAKE 1 TABLET BY MOUTH EVERY DAY NEEDED FOR ANXIETY Authorizing Provider: MARNI WILKS * Telephone Encounter - Daiana Blankenship RPh - 08/16/2024 8:48 AM EDTPending Prescriptions: Disp Refills clonazePAM 1 MG Oral Tablet [Pharmacy Med *30 Tab*0 Sig: TAKE 1 TABLET BY MOUTH EVERY DAY NEEDED FOR ANXIETY * Telephone Encounter - Daiana Blankenship RPh - 08/16/2024 8:47 AM EDT I have reviewed the patients controlled substance dispensing history in the Prescription Drug Monitoring Program in compliance with the [facility] regulations before prescribing a controlled substance. PDMP checked on 08/16/2024. Pending Prescriptions: Disp Refills clonazePAM 1 MG Oral Tablet (KlonoPIN) [P*30 Tab*0 Sig: TAKE 1 TABLET BY MOUTH EVERY DAY NEEDED FOR ANXIETY Last Visit: 08/03/2024 (in office), Visit date not found (telemedicine) Next Visit: 12/01/2024 Date medication was last filled: 07/18/24 Date medication is due for refill: 08/16/24 Pharmacy: [id number] Is this request for a controlled substance? Yes and Urine Drug Screen Not completed Toxicology results: No results found for this or any previous visit. Please approve if appropriate. Thanks, Daiana Blankenship, PharmD Clinical Pharmacist Centralized Clinical Pharmacy Services [phone] 08/16/2024 8:47 AM documented in this encounter Plan of Treatment Upcoming Encounters Date Type Department Care Team (Late st Contact Info) Description 12/01/2024 3:40 PM EST Office Visit Family Medicine [address] [phone] Marni Wilks MD [address] [place] [address] [place] [phone] Scheduled Procedures Name Priority Associated Diagnoses Date/Ti me COLONOSCOPY FLEXIBLE PROXIMAL DIAGNOSTIC Recall History of colon polyps Health Maintenance Due Date Last Done Comments Cologuard 2000 Fecal Occult Blood Test 2000 Sigmoidoscopy 2000 Adult Wellness Visit 2021 Depression Monitoring 09/10/2022 09/10/2021 Pneumococcal Vaccine: 65+ Years (2 of 2 - PCV) 09/10/2022 09/10/2021 COVID-19 Vaccine ( season) 2024 11/23/2023, 09/08/2022, 09/30/2021, Additional history exists GFR 11/30/2024 11/30/2023, 12/24, 01/21/2022, Additional history exists Albumin/Creatinine Ratio 01/20/2026 01/20/2023, 02/23 Diabetes Screening [...] this encounter Medical Devices Implanted Type Area Wildlife Manager Device Identifier Shelf Expiration Date Model / Serial / Lot Lens Li61ao 13.00mm 21.50 - [id number] - [id number] Implanted:Qty: 1 on 06/03/2023 by Nish Goel MD at [facility] Right: Eye [employer] 12/23/2027 [id number] / [id number] / [id number] Lens Li61ao 13.00mm 21.00 - [id number] - [id number] Implanted:Qty: 1 on 07/08/2023 by Nish Goel MD at [facility] Left: Eye [employer] 02/22/2028 [id number] / [id number] / [id number] documented as of this encounter Visit Diagnoses [...] Power of Attor magui? No Care Teams Patternmaker Hand Relationship Specialty Start Date End Date Marni Wilks MD [address] [place] [address] [place] [id number] PCP - General Family Medicine 05/09/15 documented as of this encounter
--- OUTSIDE RECORDS SUMMARY | 2025-01-02 15:30 | External Medical Summary | Summary of Care ---
Author Name Unknown Organization [facility] Address [address] [place] [address] Phone [phone] Care Team Providers Care Lead Section Supervisor Name Role Phone Marni Wilks MD Primary Care Provide r Reason for Visit * Reason Comments eRx-Medication Refill Encounter Details Date Type Department Care Team (Late st Contact Info) Description 09/14/2024 Refill Family Medicine [address] [phone] Marni Wilks MD [address] [place] [address] [place] [address] Insomnia Allergies Active Allergy Reactions Criticality Noted Date Comments No Known Drug Allergy 08/25/2010 documented as of this encounter (statuses as of 09/15/2024) Medications Sildenafil Citrate 100 MG Oral TabletIndication s:Erectile dysfunction, unspecified erectile dysfunction type TAKE ONE TABLET BY MOUTH 1-4 HOURS PRIOR TO INTERCOURSE . NO MORE THAN 1 TABLET EVERY 24 HOURS 6 Tablet 5 02/18/20 23 Active Atorvastatin Calcium 40 MG Oral Tablet (Lipitor)Indicat ions:Dyslipidemi a, goal LDL below 130 TAKE 1 TABLET BY MOUTH EVERY DAY IN THE MORNING 90 Tablet 3 08/22/20 23 Active Pantoprazole Sodium 40 MG Oral [...] DAY 90 Tablet 3 04/01/20 24 Active predniSONE 10 MG Oral Tablet (Deltasone) Take as tapered dose over 12 days. 6-6-5-5-4-4 -3-3-2-2-1- 1 42 Tablet 09/04/20 24 Active clonazePAM 1 MG Oral Tablet (KlonoPIN)Indica tions:Insomnia TAKE 1 TABLET BY MOUTH EVERY DAY NEEDED FOR ANXIETY 30 Tablet 09/15/20 24 Active clonazePAM 1 MG Oral Tablet (KlonoPIN)Indica tions:Insomnia TAKE 1 TABLET BY MOUTH EVERY DAY NEEDED FOR ANXIETY 30 Tablet 08/16/20 24 024 Discontinued documented as of this encounter (statuses as of 09/15/2024) Active Problems Problem Noted Date Diagnosed Date [...] as of this encounter (statuses as of 09/15/2024) Resolved Problems Problem Noted Date Diagnosed Date [...] as of this encounter (statuses as of 09/15/2024) Immunizations Name Administration Dates Next Due COVID-19 mRNA, LNP-s, No Pre serve, 2-Dose Series ([employer] 100e) 09/30/2021,01/18/2021,12/21/2020 COVID-19, MRNA-LNP, PF, 30 M CG/0.3 mL, 12 YRS AND ABOVE, IM ([employer] [facility] 11/23/2023 Covid-19, Mrna, Lnp-s, Pf, B ivalent, [...] 09/10/2021 Hunger Vital Sign Answer Date Recorded Within [...] Telephone Encounter - Marni Wilks MD - 09/15/2024 4:24 PM EST Signed Prescriptions: Disp Refills clonazePAM 1 MG Oral Tablet (KlonoPIN) 30 Tab*0 Sig: TAKE 1 TABLET BY MOUTH EVERY DAY NEEDED FOR ANXIETY Authorizing Provider: MARNI WILKS * Telephone Encounter - Darcy Rodriguez [facility] - 09/15/2024 4:20 PM EST Pending Prescriptions: Disp Refills clonazePAM 1 MG Oral Tablet [Pharmacy Med *30 Tab*0 Sig: TAKE 1 TABLET BY MOUTH EVERY DAY NEEDED FOR ANXIETY * Telephone Encounter - Darcy Rodriguez [facility] - 09/15/2024 4:04 PM EST I have reviewed the patients controlled substance dispensing history in the Prescription Drug Monitoring Program in compliance with the [facility] regulations before prescribing a controlled substance. PDMP checked on 09/15/2024. Pending Prescriptions: Disp Refills clonazePAM 1 MG Oral Tablet (KlonoPIN) [P*30 Tab*0 Sig: TAKE 1 TABLET BY MOUTH EVERY DAY NEEDED FOR ANXIETY Last Visit: 08/03/2024 (in office), Visit date not found (telemedicine) Next Visit: 12/01/2024 Date medication was last filled: 08/17/24 Date medication is due for refill: 09/15/24 Pharmacy: [id number] Is this request for a controlled substance? Yes and Urine Drug Screen Not completed Toxicology results: No results found for this or any previous visit. Please approve if appropriate. Thanks, Darcy Rodriguez [facility] Clinical Pharmacist Centralized Clinical Pharmacy Services ([facility]) [phone] documented in this encounter Plan of Treatment Upcoming Encounters Date Type Department Care Team (Late st Contact Info) Description 09/25/2024 11:00 AM EST Imaging Radiology [address] [place] [address] 09/28/2024 3:00 PM EST Telemedicine Podiatry, [address] [address] Martina Zaldivar DPM [address] [place] [address] 12/01/2024 3:40 PM EST Office Visit Family Medicine [address] [place] [phone] Marni Wilks MD [address] [place] [address] [place] [phone] Scheduled Procedures Name Priority Associated Diagnoses Date/Ti me COLONOSCOPY FLEXIBLE PROXIMAL DIAGNOSTIC Recall History of colon polyps Health Maintenance Due Date Last Done Comments Cologuard 2000 Fecal Occult Blood Test 2000 Sigmoidoscopy 2000 Adult Wellness Visit 2021 Depression Monitoring 09/10/2022 09/10/2021 Pneumococcal Vaccine: 65+ Years (2 of 2 - PCV) 09/10/2022 09/10/2021 COVID-19 Vaccine ( - season) 2024 11/23/2023, 09/08/2022, 09/30/2021, Additional history [...] this encounter Medical Devices Implanted Type Area Land Management Supervisor Device Identifier Shelf Expiration Date Model / Serial / Lot Lens Li61ao 13.00mm 21.50 - [id number] - [id number] Implanted:Qty: 1 on 06/03/2023 by Nish Goel MD at [facility] Right: Eye [employer] 12/23/2027 [id number] / [id number] / [id number] Lens Li61ao 13.00mm 21.00 - [id number] - [id number] Implanted:Qty: 1 on 07/08/2023 by Nish Goel MD at [facility] Left: Eye [employer] 02/22/2028 [id number] / [id number] / [id number] documented as of this encounter Visit Diagnoses [...] Power of Attor magui? No Care Teams Lead Section Supervisor Relationship Specialty Start Date End Date Marni Wilks MD [address] [place] [address] [place] [phone] PCP - General Family Medicine 05/09/15 documented as of this encounter
--- OUTSIDE RECORDS SUMMARY | 2025-01-02 15:30 | External Medical Summary | Summary of Care ---
Author Name Unknown Organization [facility] Address [address] [place] [facility] [place] [place] [address] Phone [phone] Care Team Providers Care Fitter Hand Name Role Phone Areli Wilks MD Primary Care Provide r Reason for Referral * Precert (Within 10 days (routine)) - Authorized Specialty Diagnoses / Procedures Referred By Contthiago t Referred To Contact Radiology Diagnoses Pain of left heel Plantar fasciitis, left Procedures MRI ANKLE LEFT WO CONTRAST Martina Zaldivar DPM [address] [place] [address] Phone: tel: fax: Referral ID Status Reason Start Date Expiration Date V isits Requested Visits Authorized [id number] Authorized 09/05/2024 [id number] Reason for Visit * Reason Comments Follow Up L heel Encounter Details Date Type Department Care Team (Late st Contact Info) Description 09/04/2024 11:40 AM EST Office Visit Podiatry [facility] [address] [facility] [place] [address] Martina Zaldivar DPM [address] [facility] [place] [address] Pain of left heel*; Plantar fasciitis, left Allergies Active Allergy Reactions Criticality Noted Date Comments No Known Drug Allergy 08/25/2010 documented as of this encounter (statuses as of 09/04/2024) Medications Sildenafil Citrate 100 MG Oral TabletIndication [...] DAY 90 Tablet 3 04/01/20 24 Active clonazePAM 1 MG Oral Tablet (KlonoPIN)Indica tions:Insomnia TAKE 1 TABLET BY MOUTH EVERY DAY NEEDED FOR ANXIETY 30 Tablet 08/16/20 24 Active predniSONE 10 MG Oral Tablet (Deltasone) Take as tapered dose over 12 days. 6-6-5-5-4-4 -3-3-2-2-1- 1 42 Tablet 09/04/20 24 Active predniSONE 20 MG Oral Tablet (Deltasone)Indic ations:Pain of left heel 2 tablets daily for 5 days then 1 tablet daily 15 Tablet 08/03/20 24 024 Discontinued documented as of this encounter (statuses as of 09/04/2024) Active Problems Problem Noted Date Diagnosed Date [...] as of this encounter (statuses as of 09/04/2024) Resolved Problems Problem Noted Date Diagnosed Date Resolved Date Acute serous otitis media of right ear 09/08/2019 03/10/2021 Dyslipidemia, goal to be determined 10/01/2009 02/12/2010 Overview (10/01/2009): Per Lipid Taxonomy. DERMATITIS - ECZEMATOUS 08/14/200912/2016 Benign neoplasm of colon 02/24/200708/2018 Overview (03/01/2007): hyperplastic polyp--repeat 5 years ADVANCE DIRECTIVE INFORMATION 01/28/2006 08/28/2024 Overview (01/28/2006): No, Advance Directive brochure offered , patient declined. OSTEOARTHROS NOS-SHLDER 04/26/200302/22 Mixed dyslipidemia 12/06/2001 9 Overview (10/01/2009): Per Lipid Taxonomy. Dermatitis 08/14/2009 Mixed dyslipidemia 7 documented as of this encounter (statuses as of 09/04/2024) Immunizations Name Administration Dates Next Due COVID-19 mRNA, LNP-s, No Pre serve, 2-Dose Series ([employer]) 09/30/2021,01/18/2021,12/21/2020 COVID-19, MRNA-LNP, PF, 30 M CG/0.3 mL, 12 YRS AND ABOVE, IM ([employer]Comirnat[employer]) 11/23/2023 Covid-19, Mrna, Lnp-s, Pf, B ivalent, [...] as of this encounter Progress Notes * Martina Zaldivar DPM - 09/04/2024 11:34 AM EST Images from the original note were not included. Podiatry Established Note [facility] Name: Cal Hutchison : 1955 Date: 09/04/2024 REASON FOR VISIT: left heel pain SUBJECTIVE: This patient is a 68 year old male who presents today for follow up of left heel pain. I had seen him on 08/14/24. He had tried various treatment options and I performed a plantar fascia steroid injection. I also discussed options of night splint, at home exercises. He reports stretching although not every day. He tends to focus on rolling exercises. He is using inserts both in his shoes and slippers. He continues to have plantar heel pain and now has noticed some pain just above this area to the medial hindfoot. Past Medical History: Diagnosis Date Arthritis of right acromioclavicular joint ATOPIC DERMATITIS Benign neoplasm of colon 02/24/07 hyperplastic polyp--repeat 5 years Benign neoplasm of colon 11/03/2012 COLONOSCOPY FLEXIBLE PROXIMAL DIAGNOSTIC performed by Kel Sandhu MD at END[facility]COPY [facility], path shows adenomatous polyp repeat in 5 years Circumscribed scleroderma lichen simplex chronicus Esophageal reflux Hiatal hernia Insomnia, unspecified Mixed dyslipidemia Osteoarthrosis involving shoulder region Other anxiety states ALLERGIES: Review of patient's allergies indicates: Allergen Reactions No Known Drug Allergy REVIEW OF SYSTEMS: N/A FOCUSED PODIATRIC EXAM: Vascular: Pedal pulses palpable including dorsalis pedis and posterior tibial artery at 2/4 left. Capillary refill time is within normal limits to all toes. No significant pre-tibial edema noted. No warmth. Pedal hair growth noted. Neurologic: Sensation (light touch) intact to the left foot. Musculoskeletal: Pain is reported with palpation of the left plantar foot - medial heel. Pain is also now reported with palpation of the medial aspect of the hindfoot off the weight bearing surface of this foot. No palpable mass or rupture. Dermatological: Skin temperature, texture, and turgor are within normal limits. No open lesions. There is no erythema or ecchymosis noted. DIAGNOSTIC STUDIES: X-rays, left heel, 08/03/2024 This includes two non weight bearing x-rays heel axial and lateral. No significant soft tissue findings. Small plantar calcaneal enthesopathy on the lateral view. Questionable line to the anterior calcaneus on the lateral view. ASSESSMENT: ICD-10-CM 1. Pain of left heel M79.672 2. Plantar fasciitis, left M72.2 PLAN: I reviewed additional options - prednisone taper, physical therapy, a camboot to offload, and MRI. He prefers to avoid PT/boot as his recently had surgery. I did prescribe a prednisone taper. I placed order for a left ankle MRI to better assess worsening pain. Orders Placed This Encounter Medications predniSONE 10 MG Oral Tablet (Deltasone) Sig: Take as tapered dose over 12 days. 0-7-4-2-7-2-3-3-2-2-1-1 Dispense: 42 Tablet Refill: 0 Follow up: telephone visit to review MRI Martina Zaldivar DPM documented in this encounter Nursing Notes * Teri Nagel LPN - 09/04/2024 11:30 AM EST Pt presents for follow up L heel pain, received injection 08/14/2024 without relief. documented in this encounter Plan of Treatment Upcoming Encounters Date Type Department Care Team (Late st Contact Info) Description 09/25/2024 11:00 AM EST Imaging Radiology [address] [place] [address] 09/28/2024 3:00 PM EST Telemedicine Podiatry, [address] [address] Martina Zaldivar DPCarmenza [address] [place] [address] 12/01/2024 3:40 PM EST Office Visit Family Medicine [address] [place] [phone] Areli Wilks MD [address] [place] [address] [place] [address] Scheduled Orders Name Type Priority Associated Diagnoses Orde r Schedule MRI ANKLE LEFT WO CONTRAST Medical Imaging Routine Pain of left heel Plantar fasciitis, left Expected: 09/05/2024, Expires: 10/04/2025 Scheduled Procedures Name Priority Associated Diagnoses Date/Ti [...] this encounter Medical Devices Implanted Type Area Auto Rental Supervisor Device Identifier Shelf Expiration Date Model / Serial / Lot Lens Li61ao 13.00mm 21.50 - [id number] - [id number] Implanted:Qty: 1 on 06/03/2023 by Nish Goel MD at OR [facility] Right: Eye [employer] 12/23/2027 [id number] / [id number] / [id number] Lens Li61ao 13.00mm 21.00 - [id number] - [id number] Implanted:Qty: 1 on 07/08/2023 by Nish Goel MD at [facility] Left: Eye [employer] 02/22/2028 [id number] / [id number] / [id number] documented as of this encounter Visit Diagnoses Diagnosis Pain of left heel- Primary Pain in limb Plantar fasciitis, left Plantar fascial fibromatosis documented in this encounter Advance Directives * [...] Power of Attor magui? No Care Teams Fitter Hand Relationship Specialty Start Date End Date Areli Wilks MD [address] [place] [address] [place] [address] PCP - General Family Medicine 05/09/15 documented as of this encounter
--- OUTSIDE RECORDS SUMMARY | 2025-01-02 15:30 | External Medical Summary | Summary of Care ---
Author Name Unknown Organization [facility] Address [address] [facility] [place] [place] [address] Phone [phone] Care Team Providers Care Linseed Oil Order Filler Name Role Phone Areli Wilks MD Primary Care Provide r Reason for Visit * Reason Comments NEW PATIENT L heel * Evaluate & Treat - Unlimited Visits (Within 10 days (routine)) - Authorized Specialty Diagnoses / Procedures Referred By Terrell nolen Referred To Contact Podiatry Diagnoses Pain of left heel Irene Caldwell PA-C [address] [place] [address] [place] [id number] Referral ID Status Reason Start Date Expiration Date Visits Requested Visits Authorized [id number] Authorized Specialty Services Required [phone] Encounter Details Date Type Department Care Team (Late st Contact Info) Description 08/14/2024 2:20 PM EDT Office Visit Podiatry [facility] [address] [facility] [place] [address] Martina [facility]aldivar DPM [address] [facility] [phone] Plantar fasciitis, left*; Pain of left heel Allergies Active Allergy Reactions Criticality Noted Date Comments No Known Drug Allergy 08/25/2010 documented as of this encounter (statuses as of 08/14/2024) Medications Medication Sig Dispensed Refills Start Date End Date Status Sildenafil Citrate 100 MG Oral TabletIndications:Erec tile dysfunction, unspecified erectile dysfunction type TAKE ONE TABLET BY MOUTH 1-4 HOURS PRIOR TO INTERCOURSE. NO MORE THAN 1 TABLET EVERY 24 HOURS 6 Tablet 5 02/17/2023 Active Atorvastatin Calcium 40 MG Oral Tablet (Lipitor)Indications:D yslipidemia, goal LDL below 130 TAKE 1 TABLET BY MOUTH EVERY DAY IN THE MORNING 90 Tablet 3 08/22/2023 Active Pantoprazole Sodium 40 MG Oral Tablet Delayed Release (Protonix)Indications: Gastroesophageal reflux disease without esophagitis,Hiatal hernia TAKE 1 TABLET BY MOUTH EVERY DAY 30 MIN BEFORE FIRST MEAL OF THE DAY 90 Tablet 3 12/16/2023 Active Lisinopril 20 MG Oral Tablet (Prinivil)Indications: HTN, goal below 140/90 TAKE 1 TABLET BY MOUTH EVERY DAY 90 Tablet 2 03/17/2024 Active amLODIPine Besylate 5 MG Oral Tablet (Norvasc) TAKE 1 TABLET BY MOUTH EVERY DAY 90 Tablet 3 04/01/2024 Active Citalopram Hydrobromide 20 MG Oral Tablet (CeleXA)Indications:Ge neralized anxiety disorder TAKE 1 TABLET BY MOUTH EVERY DAY 90 Tablet 3 04/01/2024 Active clonazePAM 1 MG Oral Tablet (KlonoPIN)Indications: Insomnia TAKE 1 TABLET BY MOUTH EVERY DAY NEEDED FOR ANXIETY 30 Tablet 07/18/2024 Active predniSONE 20 MG Oral Tablet (Deltasone)Indications :Pain of left heel 2 tablets daily for 5 days then 1 tablet daily 15 Tablet 08/03/2024 Active Hospital, Clinic, or Other Facility Administered Medication Ordered Dose Route Frequency Start Date End Date Status bupivacaine (Sensorcaine) 0.5 % inj 2.5 mgIndications:Pain of left heel,Plantar fasciitis, left 2.5 mg IJ ONCE 08/14/2024 08/14/2024 Ended dexamethasone sodium phosphate 20 MG/5ML inj 2 mgIndications:Pain of left heel,Plantar fasciitis, left 2 mg IJ ONCE 08/14/2024 08/14/2024 Ended methylPREDNISolone acetate (Depo-Medrol) 20 MG/ML inj 10 mgIndications:Pain of left heel,Plantar fasciitis, left 10 mg INTRABURSAL ONCE 08/14/2024 08/14/2024 Ended documented as of this encounter (statuses as of 08/14/2024) Active Problems Problem Noted Date Diagnosed Date [...] as of this encounter (statuses as of 08/14/2024) Resolved Problems Problem Noted Date Diagnosed Date Resolved Date Acute serous otitis media of right ear 09/08/2019 03/10/2021 Dyslipidemia, goal to be determined 10/01/2009 02/12/2010 Overview: Per Lipid Taxonomy. DERMATITIS - ECZEMATOUS 08/14/2009 110 12/2016 Benign neoplasm of colon 02/24/200708/2018 Overview: hyperplastic polyp--repeat 5 years OSTEOARTHROS NOS-SHLDER 04/26/200302/22 Mixed dyslipidemia 12/06/2001 9 Overview: Per Lipid Taxonomy. Dermatitis 08/14/2009 Mixed dyslipidemia 7 documented as of this encounter (statuses as of 08/14/2024) Immunizations Name Administration Dates Next Due COVID-19 mRNA, LNP-s, No Pre serve, 2-Dose Series (studdex) 09/30/2021,01/18/2021,12/21/2020 COVID-19, MRNA-LNP, 23-24, P F, 30 MCG/0.3 mL, 12 YRS AND ABOVE, IM (PFIZER-Comirnaty) [...] on file documented as of this encounter Progress Notes * Martina Zaldivar DPM - 08/14/2024 2:20 PM EDT Images from the original note were not included. Podiatry New Patient Note [facility] Name: Cal Hutchison : 1955 Date: 08/14/2024 CHIEF COMPLAINT: left heel pain HISTORY OF PRESENT ILLNESS: This patient is a 68 year old male who presents today with complaints of left heel pain which started sometime in the Summer. The bottom of his left heel is painful most of the time, but often worsens if he is cutting grass or walking more. He has tried Dr. Pollack inserts, rolling the heel/arch on a baseball and doing some calf type stretches. His family doctor officeordered an x-ray and put him on prednisone. This helped take the edge off some. He offers no other concerns today. Past Medical History: Diagnosis Date Arthritis of right acromioclavicular joint ATOPIC DERMATITIS Benign neoplasm of colon 02/24/07 hyperplastic polyp--repeat 5 years Benign neoplasm of colon 11/03/2012 COLONOSCOPY FLEXIBLE PROXIMAL DIAGNOSTIC performed by Kel Sandhu MD at [facility], path shows adenomatous polyp repeat [...] performed by Kel Sandhu MD at [facility], [facility] shows adenomatous polyp repeat in 5 years COLONOSCOPY, DIAGNOSTIC (RECTUM) 07/10/2016 microscopic colitis/COLONOSCOPY FLEXIBLE PROXIMAL DIAGNOSTIC performed by Yvan Melton [facility] COLONOSCOPY, DIAGNOSTIC (RECTUM) 07/15/2022 benign adenomatous polyp, repeat 10 yrs / COLONOSCOPY FLEXIBLE PROXIMAL DIAGNOSTIC performed by Du Richards MD at [facility] DENTAL SURGERY PROCEDURE NEC [place] teeth EGD, FLEXIBLE, DIAGNOSTIC 04/17/2016 ESOPHAGOGASTRODUODENOSCOPY (EGD), FLEXIBLE, TRANSORAL, DIAGNOSTIC performed by Kel Sandhu MD at [facility] KNEE ARTHROSCOPY, DIAGNOSTIC Right Knee Arthroscopy NECK SPINE FUSION (CERV, BELOW C2) Dr. Hankins REMOVE CATARACT, INSERT LENS PROSTH Right 06/03/2023 RIGHT EXTRACAPSULAR CATARACT REMOVAL WITH INTRAOCULAR LENS performed by Nish Goel MD at OR [facility] REMOVE CATARACT, INSERT LENS PROSTH Left 07/08/2023 LEFT EXTRACAPSULAR CATARACT REMOVAL WITH INTRAOCULAR LENS performed by Nish Goel MD at [facility] SHOULDER SURGERY PROCEDURE NEC Bilateral Shoulder Surgery, Open (left pinning, right arthroscopy) SPINAL FUSION, LUMBAR, COMBINED 2005 Dr. Hankins--fusion L4-5 Family History Problem Relation Name Age of Onset Tremor Mother severe Heart Disorder Father Lymphoma Father Non-Hodgkins Allergies Daughter chronic dermatitis Allergies Son chronic dermatitis Cancer Uncle (Paternal) Spine tumor. Social History Socioeconomic History Marital status: Tobacco Use Smoking status: Former Current packs/day: 0.00 Average packs/day: 1 pack/day for 25.0 years (25.0 ttl pk-yrs) Types: Cigarettes Start date: 10/25/1975 Quit date: 10/25/2000 Years since quittin.8 Smokeless tobacco: Never Tobacco comments: one pack per week-or less/ exposed to 's passive smoke Vaping Use Vaping status: Never Used Substance and Sexual Activity Alcohol use: Yes Comment: 6-12 Beers per day Drug use: No Comment: marijuana in 70s Sexual activity: Yes Partners: Female Social History Narrative [employer] INFORMATION ENVIRONMENTAL HISTORY: Type of Home: One Story Type of Heating System: Electric, Wood and [place] Air Conditioning: Yes Patient's bedroom and Living [...] [place] farm: 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 Entered by: Elijah Musa MD 07/22/2009 Social Determinants of Health Financial Resource Strain: Low Risk (11/10/2023) Financial Resource Strain Do you have any trouble paying for your medications, or do you think you might in the future? (Adult - for ages 18 years and over): No Food Insecurity: No Food Insecurity (11/10/2023) Food Insecurity Do you need food for this week? (Adult - for ages 18 years and over): No Transportation Needs: No Transportation Needs (11/10/2023) Transportation Needs Do you have trouble getting a ride to medical visits or work? (Adult - for ages 18 years and over):Never True Social Connections: Socially Integrated (11/10/2023) Social Connections How often do you feel lonely or isolated from those around you? (Adult - for ages 18 years and over): Never Housing Stability: Low Risk (11/10/2023) Housing Stability Do you currently live in a senior living or have no steady place to sleep at night? (Adult - for ages 18 years and over): No Do you think you are at risk of becoming homeless? (Adult - for ages 18 years and over): No Current Outpatient Medications Medication Sig Dispense Refill Sildenafil Citrate 100 MG Oral Tablet TAKE ONE TABLET BY MOUTH 1-4 HOURS PRIOR TO INTERCOURSE. NO MORE THAN 1 TABLET EVERY 24 HOURS 6 Tablet 5 Atorvastatin Calcium 40 MG Oral Tablet (Lipitor) TAKE 1 TABLET BY MOUTH EVERY DAY IN THE MORNING 90Tablet 3 Pantoprazole Sodium 40 MG Oral Tablet Delayed [...] BY MOUTH EVERY DAY 90 Tablet 3 clonazePAM 1 MG Oral Tablet (KlonoPIN) TAKE 1 TABLET BY MOUTH EVERY DAY NEEDED FOR ANXIETY 30 Tablet 0 predniSONE 20 MG Oral Tablet (Deltasone) 2 tablets daily for 5 days then 1 tablet daily 15 Tablet 0 No current facility-administered medications for this visit. ALLERGIES: Review of patient's allergies indicates: Allergen Reactions No Known Drug Allergy REVIEW OF SYSTEMS: CONSTITUTIONAL: No fevers, sweats, or chills FOCUSED PODIATRIC EXAM: Vascular: Pedal pulses palpable including dorsalis pedis and posterior tibial artery at 2/4 left. Capillary refill time is within normal limits to all toes. No significant pre-tibial edema noted. No warmth. Pedal hair growth noted. Neurologic: Sensation (light touch) intact to the left foot. Musculoskeletal: Pain is reported with palpation of the left plantar foot - medial heel. No palpable mass or rupture. Mild limitation of ankle dorsiflexion noted with knee extended. Dermatological: Skin temperature, texture, and turgor are within normal limits. No open lesions. There is no erythema or ecchymosis noted. DIAGNOSTIC STUDIES: X-rays, left heel, 08/03/2024 This includes two non weight bearing x-rays heel axial and lateral. No significant soft tissue findings. Small plantar calcaneal enthesopathy on the lateral view. Questionable line to the anterior calcaneus on the lateral view. ASSESSMENT: ICD-10-CM 1. Plantar fasciitis, left M72.2 2. Pain of left heel M79.672 PLAN: I personally reviewed recent left heel x-rays as above. Symptoms are consistent with plantar fasciitis. I provided him daily at home exercises (AAOS F&A), he may consider night splint or gel cups. I also discussed option of steroid injection which he was agreeable to try. I recommended a steroid injection of the left heel at the plantar fascia today. I reviewed all risks, benefits, alternatives, and complications to this procedure with the patient. Risks include but are not limited to: pain, bleeding, bruising, infection, atrophy or thinning of the soft tissue, an in crease in blood glucose, allergic reaction, steroid flare, recurrence of condition, and possibilityof no improvement in condition. Non OR time Out: Time out was initiated under direction and supervision of provider Martina Zaldivar DPM. Correct patient identity - Yes Correct side and site - Yes Procedure matches verbalized consent -Yes Correct patient position - Yes Availability of correct implants and any special equipment or special requirements - Yes Time out occurred prior to procedure start - Yes Prophylactic antibiotic timing confirmed - N/A Witness present & agrees with the time out process. The left heel was prepped with alcohol and then chloroprep. Injection was performed using a 25 gauge needle. Injection consisted of: 0.5mL 20mg/ml Depomedrol 0.5mL of 4mg/ml dexamethasone sodium phosphate 0.5mL of 0.5% sensorcaine plain Injection was administered into the left heel near the insertion of the medial band of the plantar fascia near the calcaneus. The patient tolerated the injection well. A dry dressing was applied over injection site. The patient was instructed to rest and limit very strenuous activity for 24 hours. Follow up: if symptoms persist Martina Zaldivar DPM documented in this encounter Nursing Notes * Teri Nagel LPN - 08/14/2024 2:01 PM EDT Pt presents for new visit, referred by PCP. Pain in L heel since before Summer, had x-ray 08/03/2024. Is a constant pain, a 4/10 today. Increases as he is on his feet more. documented in this encounter Plan of Treatment Upcoming Encounters Date Type Department Care Team (Late st Contact Info) Description 12/01/2024 3:40 PM EST Office Visit Family Medicine [address] [phone] Areli Wilks MD [address] [place] [address] [place] [address] Scheduled Procedures Name Priority Associated Diagnoses Date/Ti [...] this encounter Medical Devices Implanted Type Area Application Support Analyst Device Identifier Shelf Expiration Date Model / Serial / Lot Lens Li61ao 13.00mm 21.50 - [id number] - [id number] Implanted:Qty: 1 on 06/03/2023 by Nish Goel MD at OR [facility] Right: Eye [employer] 12/23/2027 [id number] / [id number] / [id number] Lens Li61ao 13.00mm 21.00 - [id number] - [id number] Implanted:Qty: 1 on 07/08/2023 by Nish Goel MD at OR [facility] Left: Eye [employer]CH [employer]OMB 02/22/2028 [id number] / [id number] / [id number] documented as of this encounter Visit Diagnoses Diagnosis Plantar fasciitis, left- Primary Plantar fascial fibromatosis Pain of left heel Pain in limb documented in this encounter Administered Medications Inactive Administered Medications - up to 3 most recent administrations Medication Order MAR Action Action Date Dose Rate Site bupivacaine (Sensorcaine) 0.5 % inj 2.5 mg 2.5 mg, Injection, ONCE, On Wed08/14/24 at 1500, For 1 dose Given 08/14/2024 2:32 PM EDT 2.5 mg Foot Left dexamethasone sodium phosphate 20 MG/5ML inj 2 mg 2 mg, Injection, ONCE, On Wed08/14/24 at 1500, For 1 dose, Protect from Light Given 08/14/2024 2:32 PM EDT 2 mg Foot Left methylPREDNISolone acetate (Depo-Medrol) 20 MG/ML inj 10 mg 10 mg, Intrabursal, ONCE, On Wed08/14/24 at 1500, For 1 dose Given 08/14/2024 2:32 PM EDT 10 mg Foot Left documented in this encounter Advance Directives * [...] Power of Attor magui? No Care Teams Linseed Oil Order Filler Relationship Specialty Start Date End Date Areli Wilks MD [address] [place] [address] [place] [phone] PCP - General Family Medicine 05/09/15 documented as of this encounter
--- OUTSIDE RECORDS SUMMARY | 2025-01-02 15:30 | External Medical Summary | Summary of Care ---
Author Name Unknown Organization [facility] Address [address] [place] [address] Phone [phone] Care Team Providers Care Police Magistrate Name Role Phone Marni Wilks MD Primary Care Provide r Reason for Visit * Reason Comments eRx-Medication Refill Encounter Details Date Type Department Care Team (Late st Contact Info) Description 07/17/2024 Refill Family Medicine [address] [place] [phone] Marni Wilks MD [address] [place] [address] [place] [address] Insomnia Allergies Active Allergy Reactions Criticality Noted Date Comments No Known Drug Allergy 08/25/2010 documented as of this encounter (statuses as of 07/18/2024) Medications Medication Sig Dispensed Refills Start Date [...] 04/01/2024 Active clonazePAM 1 MG Oral Tablet (KlonoPIN)Indicati ons:Insomnia TAKE 1 TABLET BY MOUTH EVERY DAY NEEDED FOR ANXIETY 30 Tablet 07/18/2024 Active clonazePAM 1 MG Oral Tablet (KlonoPIN)Indicati ons:Insomnia TAKE 1 TABLET BY MOUTH EVERY DAY NEEDED FOR ANXIETY 30 Tablet 06/20/2024 07/18/2024 Discontinued documented as of this encounter (statuses as of 07/18/2024) Active Problems Problem Noted Date Diagnosed Date [...] as of this encounter (statuses as of 07/18/2024) Resolved Problems Problem Noted Date Diagnosed Date [...] as of this encounter (statuses as of 07/18/2024) Immunizations Name Administration Dates Next Due COVID-19 mRNA, LNP-s, No Pre serve, 2-Dose Series ([employer]) 09/30/2021,01/18/2021,12/21/2020 COVID-19, MRNA-LNP, 23-24, P F, 30 MCG/0.3 mL, 12 YRS AND ABOVE, IM (D-Share-Comirnaty) 11/23/2023 Covid-19, Mrna, Lnp-s, Pf, B ivalent, 30 Mcg, IM, 12 yrs and above (Pfizer) 09/08/2022 Pneumococcal Polysaccharide PPV23 (Pneumovax) 09/10/2021 Seasonal Influenza, Quadriva lent Hd (Fluzone Hd) [...] Telephone Encounter - Marni Wilks MD - 07/18/2024 3:06 PM EDT Signed Prescriptions: Disp Refills clonazePAM 1 MG Oral Tablet (KlonoPIN) 30 Tab*0 Sig: TAKE 1 TABLET BY MOUTH EVERY DAY NEEDED FOR ANXIETY Authorizing Provider: MARNI WILKS * Telephone Encounter - Frances Lozano [facility] - 07/18/2024 1:27 PM EDT Pending Prescriptions: Disp Refills clonazePAM 1 MG Oral Tablet [Pharmacy Med *30 Tab*0 Sig: TAKE 1 TABLET BY MOUTH EVERY DAY NEEDED FOR ANXIETY * Telephone Encounter - Frances Lozano [facility] - 07/18/2024 1:17 PM EDT I have reviewed the patients controlled substance dispensing history in the Prescription Drug Monitoring Program in compliance with the [facility] regulations before prescribing a controlled substance. PDMP checked on 07/18/2024. Pending Prescriptions: Disp Refills clonazePAM 1 MG Oral Tablet (KlonoPIN) [P*30 Tab*0 Sig: TAKE 1 TABLET BY MOUTH EVERY DAY NEEDED FOR ANXIETY Last Visit: 05/25/2024 (in office), Visit date not found (telemedicine) Next Visit: 12/01/2024 Date medication was last filled: 06/20/24 Date medication is due for refill: 07/19/24 Pharmacy: [facility] [id number] Is this request for a controlled substance? Yes and Urine Drug Screen Not completed Toxicology results: No results found for this or any previous visit. Please approve if appropriate. Thank you, Frances Lozano, PharmD Clinical Pharmacist [facility] ([facility]) [phone] 07/18/2024, 1:27 PM documented in this encounter Plan of Treatment Upcoming Encounters Date Type Department Care Team (Late st Contact Info) Description 12/01/2024 3:40 PM EST Office Visit Family Medicine [address] [place] [address] Marni Wilks MD [address] [place] [address] [place] [phone] Scheduled Procedures Name Priority Associated Diagnoses Date/Ti [...] 2024 11/23/2023, 09/08/2022, 09/30/2021, Additional history exists Influenza Vaccine (FLU shot) (#1) 2024 11/23/2023, 09/08/2022, 09/10/2021 GFR 11/30/2024 11/30/2023, 12/24, 01/21/2022, Additional history [...] history exists Zoster Vaccines Completed 09/08/2022, 03/11/2022 HPV (Gardasil) Vaccine Aged Out No lo nger eligible based on patient's age to complete this topic Hepatitis B Vaccine Aged Out No longe r eligible based on patient's age to complete this topic MENINGOCOCCAL (MENACTRA/MENVEO) Aged Out No longer eligible based on patient's age to complete this topic documented as of this encounter Medical Devices Implanted Type Area Tape Controlled Machine Stitcher Device Identifier Shelf Expiration Date Model / Serial / Lot Lens Li61ao 13.00mm 21.50 - [id number] - [id number] Implanted:Qty: 1 on 06/03/2023 by Nish Goel MD at OR [facility] Right: Eye [employer] 12/23/2027 [id number] / [id number] / [id number] Lens Li61ao 13.00mm 21.00 - [id number] - [id number] Implanted:Qty: 1 on 07/08/2023 by Nish Goel MD at OR [facility] Left: Eye [employer]CH [employer]OM[employer] 02/22/2028 [id number] / [id number] / [id number] documented as of this encounter Visit Diagnoses [...] Power of Attor magui? No Care Teams Police Magistrate Relationship Specialty Start Date End Date Marni Wilks MD [address] [place] [address] [place] [phone] PCP - General Family Medicine 05/09/15 documented as of this encounter
--- OUTSIDE RECORDS SUMMARY | 2025-01-02 15:30 | External Medical Summary | Summary of Care ---
Author Name Unknown Organization [facility] Address [address] [place] [address] Phone [phone] Care Team Providers Care Networking Specialist Name Role Phone Irene Caldwell PA-C Primary Care Provider [phone] Reason for Visit * Reason Comments eRx-Medication Refill Encounter Details Date Type Department Care Team (Late st Contact Info) Description 11/09/2024 Refill Family Medicine [address] [place] [phone] Marni Wilks MD [address] [place] [address] [place] [address] Dyslipidemia, goal LDL below 130 Allergies Active Allergy Reactions Criticality Noted Date Comments No Known Drug Allergy 08/25/2010 documented as of this encounter (statuses as of 11/09/2024) Medications Sildenafil Citrate 100 MG Oral TabletIndication [...] EVERY DAY NEEDED FOR ANXIETY 30 Tablet 10/17/20 24 Active Atorvastatin Calcium 40 MG Oral Tablet (Lipitor)Indicat ions:Dyslipidemi a, goal LDL below 130 TAKE 1 TABLET BY MOUTH EVERY DAY IN THE MORNING 90 Tablet 11/09/19 25 Active Atorvastatin Calcium 40 MG Oral Tablet (Lipitor)Indicat ions:Dyslipidemi a, goal LDL below 130 TAKE 1 TABLET BY MOUTH EVERY DAY IN THE MORNING 90 Tablet 3 08/22/20 23 025 Discontinued documented as of this encounter (statuses as of 11/09/2024) Active Problems Problem Noted Date Diagnosed Date [...] as of this encounter (statuses as of 11/09/2024) Resolved Problems Problem Noted Date Diagnosed Date [...] as of this encounter (statuses as of 11/09/2024) Immunizations Name Administration Dates Next Due COVID-19 mRNA, LNP-s, No Pre serve, 2-Dose Series ([employer]) 09/30/2021,01/18/2021,12/21/2020 COVID-19, MRNA-LNP, PF, 30 M CG/0.3 mL, 12 YRS AND ABOVE, IM (PFIZER-Comirnat) 11/23/2023 Covid-19, Mrna, Lnp-s, Pf, B ivalent, 30 Mcg, IM, 12 yrs and above ([employer]) 09/08/2022 Pneumococcal Polysaccharide PPV23 (Pneumovax) 09/10/2021 Seasonal [...] encounter Miscellaneous Notes * Telephone Encounter - Mis Acevedo RP - 11/09/2024 9:39 AM ESTSigned Prescriptions: Disp Refills Atorvastatin Calcium 40 MG Oral Tablet (Li*90 Tab*0 Sig: TAKE 1 TABLET BY MOUTH EVERY DAY IN THE MORNINGAuthorizing Provider: MARNI WILKS User:MIS ACEVEDO * Telephone Encounter - Mis Acevedo RPh - 11/09/2024 9:37 AM EST RX authorized. Zero refills given until upcoming appt. 12/01/2024 Thank you, Mis Acevedo, PharmD Clinical Pharmacist [facility] ([facility]) 11/09/24 9:38 AM [phone] documented in this encounter Plan of Treatment Upcoming Encounters Date Type Department Care Team (Late st Contact Info) Description 12/01/2024 3:40 PM EST Office Visit Family Medicine [address] [place] [phone] Marni Wilks MD [address] [place] [address] [place] [phone] Scheduled Procedures Name Priority Associated Diagnoses Date/Ti me COLONOSCOPY FLEXIBLE PROXIMAL DIAGNOSTIC Recall History of colon polyps Health Maintenance Due Date Last Done Comments Cologuard 2000 Fecal Occult Blood Test 2000 Sigmoidoscopy 2000 Adult Wellness Visit 2021 Depression Monitoring 09/10/2022 09/10/2021 Pneumococcal Vaccine: 50+ Years (2 of 2 [...] this encounter Medical Devices Implanted Type Area Haulage Engine Operator Device Identifier Shelf Expiration Date Model / Serial / Lot Lens Li61ao 13.00mm 21.50 - [id number] - [id number] Implanted:Qty: 1 on 06/03/2023 by Nish Goel MD at OR [facility] Right: Eye [employer] 12/23/2027 [id number] / [id number] / [id number] Lens Li61ao 13.00mm 21.00 - [id number] - [id number] Implanted:Qty: 1 on 07/08/2023 by Nish Goel MD at OR [facility] Left: Eye BA[employer]CH [employer] LOMB 02/22/2028 [id number] / [id number] / [id number] documented as of this encounter Visit Diagnoses Diagnosis Dyslipidemia, goal LDL below 130 Other and [...] Power of Attor magui? No Care Teams Networking Specialist Relationship Specialty Start Date End Date Irene Caldwell PA-C [address] [place] [address] [place] [phone] PCP - General Physician Customer Care Assistant 11/01/24 documented as of this encounter
--- OUTSIDE RECORDS SUMMARY | 2025-01-02 15:30 | External Medical Summary | Summary of Care ---
Author Name Unknown Organization [facility] Address [address] [facility] [address] Phone [phone] Care Team Providers Care Lacquer Dipping Machine Operator Name Role Phone Irene Caldwell PA-C Primary Care Provider +1- [phone] Encounter Details Date Type Department Care Team (Late st Contact Info) Description 11/13/2024 Population Health External Data Unspecified Department Allergies Active Allergy Reactions Criticality Noted Date Comments No Known Drug Allergy 08/25/2010 documented as of this encounter (statuses as of 11/13/2024) Medications Sildenafil Citrate 100 MG Oral TabletIndications [...] EVERY DAY 90 Tablet 3 4 Active predniSONE 10 MG Oral Tablet (Deltasone) Take as tapered dose over 12 days. 4-9-9-5-4-4- 3-3-2-2-1-1 42 Tablet 4 Active clonazePAM 1 MG Oral Tablet (KlonoPIN)Indicat ions:Insomnia TAKE 1 TABLET BY MOUTH EVERY DAY NEEDED FOR ANXIETY 30 Tablet 4 Active Atorvastatin Calcium 40 MG Oral Tablet (Lipitor)Indicati ons:Dyslipidemia, goal LDL below 130 TAKE 1 TABLET BY MOUTH EVERY DAY IN THE MORNING 90 Tablet 5 Active documented as of this encounter (statuses as of 11/13/2024) Active Problems Problem Noted Date Diagnosed Date [...] as of this encounter (statuses as of 11/13/2024) Resolved Problems Problem Noted Date Diagnosed Date [...] as of this encounter (statuses as of 11/13/2024) Immunizations Name Administration Dates Next Due COVID-19 mRNA, LNP-s, No Pre serve, 2-Dose Series ([employer]) 09/30/2021,01/18/2021,12/21/2020 COVID-19, MRNA-LNP, PF, 30 M CG/0.3 mL, 12 YRS AND ABOVE, IM ([employer]) 11/23/2023 Covid-19, Mrna, Lnp-s, Pf, B ivalent, [...] No 11/10/2023 Does the household have a [facility] source of income? (Household - for ages [...] 3:40 PM EST Office Visit Family Medicine [address] [place] [address] Areli Wilks MD [address] [place] [address] [place] [address] Scheduled Procedures Name Priority Associated Diagnoses Date/Ti [...] this encounter Medical Devices Implanted Type Area Residential Appraiser Device Identifier Shelf Expiration Date Model / Serial / Lot Lens Li61ao 13.00mm 21.50 - [id number] - [id number] Implanted:Qty: 1 on 06/03/2023 by Nish Goel MD at OR [facility] Right: Eye BAUSCH & LOMB 12/23/2027 [id number] / [id number] / [id number] Lens Li61ao 13.00mm 21.00 - [id number] - [id number] Implanted:Qty: 1 on 07/08/2023 by Nish Goel MD at OR [facility] Left: Eye BAUSCH & LOMB 02/22/2028 [id number] / [id number] / [id number] documented as of this encounter Advance Directives * Full Code [...] Power of Attor magui? No Care Teams Lacquer Dipping Machine Operator Relationship Specialty Start Date End Date Irene Caldwell PA-C [address] [place] [address] [place] [phone] PCP - General Physician Brush Clearer Surveying 11/01/24 documented as of this encounter
--- OUTSIDE RECORDS SUMMARY | 2025-01-02 15:30 | External Medical Summary | Summary of Care ---
Author Name Unknown Organization [facility] Address [address] [facility] [place] [address] Phone [phone] Care Team Providers Care Head Athletic Trainer/Strength Coach Name Role Phone Areli Wilks MD Primary Care Provide r Reason for Visit * Reason Onset Date Comments Test Results 08/04/2024 Encounter Details Date Type Department Care Team (Late st Contact Info) Description 08/04/2024 Telephone Family Medicine [address] [place] [address] Irene Caldwell PA-C [address] [place] [address] [place] [address] Test Results Allergies Active Allergy Reactions Criticality Noted Date Comments No Known Drug Allergy 08/25/2010 documented as of this encounter (statuses as of 08/09/2024) Medications Medication Sig Dispensed Refills Start Date [...] 1 tablet daily 15 Tablet 08/03/2024 Active documented as of this encounter (statuses as of 08/09/2024) Active Problems Problem Noted Date Diagnosed Date [...] as of this encounter (statuses as of 08/09/2024) Resolved Problems Problem Noted Date Diagnosed Date [...] as of this encounter (statuses as of 08/09/2024) Immunizations Name Administration Dates Next Due COVID-19 mRNA, LNP-s, No Pre serve, 2-Dose Series ([employer]) 09/30/2021,01/18/2021,12/21/2020 COVID-19, MRNA-LNP, 23-24, P F, 30 MCG/0.3 mL, 12 YRS AND ABOVE, IM ([employer]) 11/23/2023 Covid-19, Mrna, Lnp-s, Pf, B ivalent, [...] encounter Miscellaneous Notes * Telephone Encounter - Sandrine Hemphill LPN - 08/09/2024 5:22 PM EDT I called pt- he is scheduled to see podiatry on 08/14 and prefers to just wait, the pain is there but it's tolerable. I explained if he changes his mind he can go to the ortho walk in clinic in the meantime. * Telephone Encounter - Irene Caldwell PA-C - 08/04/2024 11:53 AM EDT Please call pt. The xray of his heel shows possible fracture. Since the pain is pretty severe, I'd like him to go to ortho walk in clinic today. documented in this encounter Plan of Treatment Upcoming Encounters Date Type Department Care Team (Late st Contact Info) Description 08/14/2024 2:20 PM EDT Office Visit Podiatry [facility] [address] [facility] [place] [address] Martina Zaldivar DPM [address] [place] [address] 12/01/2024 3:40 PM EST Office Visit Family Medicine [address] [address] Areli Wilks MD [address] [place] [address] [place] [address] Scheduled Procedures Name Priority Associated Diagnoses [...] this encounter Medical Devices Implanted Type Area Construction Management Instructor Device Identifier Shelf Expiration Date Model / Serial / Lot Lens Li61ao 13.00mm 21.50 - [id number] - [id number] Implanted:Qty: 1 on 06/03/2023 by Nish Goel MD at OR [facility] Right: Eye BAUSCH & LOMB 12/23/2027 [id number] / [id number] / [id number] Lens Li61ao 13.00mm 21.00 - [id number] - [id number] Implanted:Qty: 1 on 07/08/2023 by Nish Goel MD at OR [facility] Left: Eye BAUSCH & LOMB 02/22/2028 [id number] / [id number] / [id number] documented as of this encounter Advance Directives [...] Power of Attor magui? No Care Teams Head Athletic Trainer/Strength Coach Relationship Specialty Start Date End Date Areli Wilks MD [address] [place] [address] [place] [phone] PCP - General Family Medicine 05/09/15 documented as of this encounter
--- OUTSIDE RECORDS SUMMARY | 2025-01-02 15:30 | External Medical Summary | Summary of Care ---
Author Name Unknown Organization [facility] Address [address] [place] [address] Phone [phone] Care Team Providers Care Acid Washer Operator Name Role Phone Marni Wikls MD Primary Care Provide r Reason for Visit * Reason Comments eRx-Medication Refill Encounter Details Date Type Department Care Team (Late st Contact Info) Description 10/15/2024 Refill Family Medicine [address] [place] [phone] Marni Wilks MD [address] [place] [address] [place] [address] Insomnia Allergies Active Allergy Reactions Criticality Noted Date Comments No Known Drug Allergy 08/25/2010 documented as of this encounter (statuses as of 10/17/2024) Medications Sildenafil Citrate 100 MG Oral TabletIndication [...] FOR ANXIETY 30 Tablet 10/17/20 24 Active clonazePAM 1 MG Oral Tablet (KlonoPIN)Indica tions:Insomnia TAKE 1 TABLET BY MOUTH EVERY DAY NEEDED FOR ANXIETY 30 Tablet 09/15/20 24 024 Discontinued documented as of this encounter (statuses as of 10/17/2024) Active Problems Problem Noted Date Diagnosed Date [...] as of this encounter (statuses as of 10/17/2024) Resolved Problems Problem Noted Date Diagnosed Date [...] as of this encounter (statuses as of 10/17/2024) Immunizations Name Administration Dates Next Due COVID-19 mRNA, LNP-s, No Pre serve, 2-Dose Series ([employer]) 09/30/2021,01/18/2021,12/21/2020 COVID-19, MRNA-LNP, PF, 30 M CG/0.3 mL, 12 YRS AND ABOVE, IM ([employer]) 11/23/2023 Covid-19, Mrna, Lnp-s, Pf, B ivalent, 30 Mcg, IM, 12 yrs and above ([employer]) 09/08/2022 Pneumococcal Polysaccharide PPV23 (Pneumovax) 09/10/2021 Seasonal [...] Telephone Encounter - Marni Wilks MD - 10/17/2024 9:49 AM EST Signed Prescriptions: Disp Refills clonazePAM 1 MG Oral Tablet (KlonoPIN) 30 Tab*0 Sig: TAKE 1 TABLET BY MOUTH EVERY DAY NEEDED FOR ANXIETY Authorizing Provider: MARNI WILKS * Telephone Encounter - Darcy Rodriguez RP - 10/17/2024 7:52 AM EST Pending Prescriptions: Disp Refills clonazePAM 1 MG Oral Tablet [Pharmacy Med *30 Tab*0 Sig: TAKE 1 TABLET BY MOUTH EVERY DAY NEEDED FOR ANXIETY * Telephone Encounter - Darcy Rodriguez RPh - 10/17/2024 7:51 AM EST I have reviewed the patients controlled substance dispensing history in the Prescription Drug Monitoring Program in compliance with the [facility] regulations before prescribing a controlled substance. PDMP checked on 10/17/2024. Pending Prescriptions: Disp Refills clonazePAM 1 MG Oral Tablet (KlonoPIN) [P*30 Tab*0 Sig: TAKE 1 TABLET BY MOUTH EVERY DAY NEEDED FOR ANXIETY Last Visit: 08/03/2024 (in office), Visit date not found (telemedicine) Next Visit: 12/01/2024 Date medication was last filled: 09/15/24 Date medication is due for refill: 10/13/24 Pharmacy: [id number] Is this request for a controlled substance? Yes and Urine Drug Screen Not completed Toxicology results: No results found for this or any previous visit. Please approve if appropriate. Thanks, Darcy Rodriguez [facility] Clinical Pharmacist [facility] ([facility]) [phone] documented in this encounter Plan of Treatment Upcoming Encounters Date Type Department Care Team (Late st Contact Info) Description 12/01/2024 3:40 PM EST Office Visit Family Medicine [address] [phone] Marni Wilks MD [address] [place] [address] [place] [address] Scheduled Procedures Name Priority Associated Diagnoses Date/Ti [...] this encounter Medical Devices Implanted Type Area Release Coordinator Device Identifier Shelf Expiration Date Model / Serial / Lot Lens Li61ao 13.00mm 21.50 - [id number] - [id number] Implanted:Qty: 1 on 06/03/2023 by Nish Goel MD at OR [facility] Right: Eye BAUSCH & LOMB 12/23/2027 [id number] / [id number] / [id number] Lens Li61ao 13.00mm 21.00 - [id number] - [id number] Implanted:Qty: 1 on 07/08/2023 by Nish Goel MD at OR [facility] Left: Eye BAUSCH & LOMB 02/22/2028 [id number] / [id number] / [id number] documented as of this encounter Visit Diagnoses [...] Power of Attor magui? No Care Teams Acid Washer Operator Relationship Specialty Start Date End Date Marni Wilks MD [address] [place] [address] [place] [phone] PCP - General Family Medicine 05/09/15 documented as of this encounter
--- OUTSIDE RECORDS SUMMARY | 2025-01-02 15:30 | External Medical Summary | Summary of Care ---
Author Name Unknown Organization [facility] Address [address] [facility] [address] Phone [phone] Care Team Providers Care Java Oracle Developer Name Role Phone Irene Caldwell PA-C Primary Care Provider +1- [phone] Reason for Visit * Reason Comments eRx-Medication Refill Encounter Details Date Type Department Care Team (Late st Contact Info) Description 11/13/2024 Refill Family Medicine [address] [place] [address] Marni Wilks MD [address] [place] [address] [place] [address] Insomnia Allergies Active Allergy Reactions Criticality Noted Date Comments No Known Drug Allergy 08/25/2010 documented as of this encounter (statuses as of 11/14/2024) Medications Sildenafil Citrate 100 MG Oral TabletIndication [...] -3-3-2-2-1- 1 42 Tablet 09/04/20 24 Active Atorvastatin Calcium 40 MG Oral Tablet (Lipitor)Indicat ions:Dyslipidemi a, goal LDL below 130 TAKE 1 TABLET BY MOUTH EVERY DAY IN THE MORNING 90 Tablet 11/09/19 25 Active clonazePAM 1 MG Oral Tablet (KlonoPIN)Indica tions:Insomnia TAKE 1 TABLET BY MOUTH EVERY DAY NEEDED FOR ANXIETY 30 Tablet 11/14/19 25 Active clonazePAM 1 MG Oral Tablet (KlonoPIN)Indica tions:Insomnia TAKE 1 TABLET BY MOUTH EVERY DAY NEEDED FOR ANXIETY 30 Tablet 10/17/20 24 025 Discontinued documented as of this encounter (statuses as of 11/14/2024) Active Problems Problem Noted Date Diagnosed Date [...] as of this encounter (statuses as of 11/14/2024) Resolved Problems Problem Noted Date Diagnosed Date [...] as of this encounter (statuses as of 11/14/2024) Immunizations Name Administration Dates Next Due COVID-19 mRNA, LNP-s, No Pre serve, 2-Dose Series ([employer]) 09/30/2021,01/18/2021,12/21/2020 COVID-19, MRNA-LNP, PF, 30 M CG/0.3 mL, 12 YRS AND ABOVE, IM ([facility]) 11/23/2023 Covid-19, Mrna, Lnp-s, Pf, B ivalent, 30 Mcg, IM, 12 yrs and above ([employer]) 09/08/2022 Pneumococcal Polysaccharide PPV23 (Pneumovax) 09/10/2021 Seasonal [...] Telephone Encounter - Marni Wilks MD - 11/14/2024 8:34 AM EST Signed Prescriptions: Disp Refills clonazePAM 1 MG Oral Tablet (KlonoPIN) 30 Tab*0 Sig: TAKE 1 TABLET BY MOUTH EVERY DAY NEEDED FOR ANXIETY Authorizing Provider: MARNI WILKS * Telephone Encounter - Irene Caldwell PA-C - 11/14/2024 8:08 AM ESTPending Prescriptions: Disp Refills clonazePAM 1 MG Oral Tablet (KlonoPIN) 30 Tab*0 Sig: TAKE 1 TABLET BY MOUTH EVERY DAY NEEDED FOR ANXIETY * Telephone Encounter - Yue Curry [facility] - 11/14/2024 5:47 AM EST Pending Prescriptions: Disp Refills clonazePAM 1 MG Oral Tablet (KlonoPIN) 30 Tab*0 Sig: TAKE 1 TABLET BY MOUTH EVERY DAY NEEDED FOR ANXIETY * Telephone Encounter - Yue Curry RP - 11/14/2024 5:47 AM EST I have reviewed the patients controlled substance dispensing history in the Prescription Drug Monitoring Program in compliance with the [facility] regulations before prescribing a controlled substance. PDMP checked on 11/14/2024. Pending Prescriptions: Disp Refills clonazePAM 1 MG Oral Tablet (KlonoPIN) [P*30 Tab*0 Sig: TAKE 1 TABLET BY MOUTH EVERY DAY NEEDED FOR ANXIETY Last Visit: 08/03/2024 (in office), Visit date not found (telemedicine) Next Visit: 12/01/2024 Date medication was last filled: 10/17 Date medication is due for refill: 11/15 Pharmacy: [facility] [id number] Is this request for a controlled substance? Yes and Urine Drug Screen Not completed Toxicology results: No results found for this or any previous visit. Please approve if appropriate. Thank you, Yue Curry, PharmD. Clinical Pharmacist [facility] ([facility]) 11/14/2024, 5:47 AM documented in this encounter Plan of Treatment Upcoming Encounters Date Type Department Care Team (Late st Contact Info) Description 12/01/2024 3:40 PM EST Office Visit Family Medicine [address] [place] [address] Marni Wilks MD [address] [place] [address] [place] [phone] Scheduled Procedures Name Priority Associated Diagnoses Date/Ti [...] this encounter Medical Devices Implanted Type Area Continuity Person Device Identifier Shelf Expiration Date Model / Serial / Lot Lens Li61ao 13.00mm 21.50 - [id number] - [id number] Implanted:Qty: 1 on 06/03/2023 by Nish Goel MD at OR [facility] Right: Eye BAUSCH & LOMB 12/23/2027 [id number] / [id number] / [id number] Lens Li61ao 13.00mm 21.00 - [id number] - [id number] Implanted:Qty: 1 on 07/08/2023 by Nish Goel MD at OR [facility] Left: Eye BAUSCH & LOMB 02/22/2028 [id number] / [id number] / [id number] documented as of this encounter Visit Diagnoses [...] Power of Attor magui? No Care Teams Java Oracle Developer Relationship Specialty Start Date End Date Irene Caldwell PA-C [address] [place] [address] [place] [phone] PCP - General Physician Panel Wirer 11/01/24 documented as of this encounter
--- OUTSIDE RECORDS SUMMARY | 2025-01-02 15:30 | External Medical Summary | Summary of Care ---
Author Name Unknown Organization [facility] Address [address] [facility] [address] Phone [phone] Care Team Providers Care Silk Screen Printer Machine Name Role Phone Areli Wilks MD Primary Care Provide r Reason for Referral * Medication Prior Authorization - Closed Specialty Diagnoses / Procedures Referred By Terrell nolen Referred To Contact Diagnoses Pain of left heel Irene Caldwell PA-C [address] [place] [address] [place] [phone] Referral ID Status Reason Start Date Expiration Date Visits Re quested Visits Authorized [id number] Closed 999 999 * Evaluate & Treat - Unlimited Visits (Within 10 days (routine)) - Authorized Specialty Diagnoses / Procedures Referred By Terrell nolen Referred To Contact Podiatry Diagnoses Pain of left heel Irene Caldwell PA-C [address] [place] [address] [place] [id number] Referral ID Status Reason Start Date Expiration Date Visits Requested Visits Authorized [id number] Authorized Specialty Services Required 4 999 999 Question Answer Referral Priority Within 10 days (routine) [facility] this [facility] be scheduled? [facility] Which condition are you referring this patient for? General Podiatry/Other Comments Plantar fasciitis Reason for Visit * Reason Comments Acute Encounter Details Date Type Department Care Team (Late st Contact Info) Description 08/03/2024 9:20 AM EDT Office Visit Family Medicine [address] [place] [address] Irene Caldwell PA-C [address] [place] [address] [place] [phone] Pain of left heel* Allergies Active Allergy Reactions Criticality Noted Date Comments No Known Drug Allergy 08/25/2010 documented as of this encounter (statuses as of 08/03/2024) Medications Medication Sig Dispensed Refills Start Date [...] as of this encounter (statuses as of 08/03/2024) Active Problems Problem Noted Date Diagnosed Date [...] as of this encounter (statuses as of 08/03/2024) Resolved Problems Problem Noted Date Diagnosed Date [...] as of this encounter (statuses as of 08/03/2024) Immunizations Name Administration Dates Next Due COVID-19 mRNA, LNP-s, No Pre serve, 2-Dose Series ([employer]) 09/30/2021,01/18/2021,12/21/2020 COVID-19, MRNA-LNP, 23-24, P F, 30 [...] on file documented as of this encounter Last Filed Vital Signs Vital Sign Reading Time Taken Comments Blood Pressure 118/74 08/03/2024 9:12 AM EDT Pulse 66 08/03/2024 9:12 AM EDT Temperature 36.1 C (97 F) 08/03/2024 9:12 AM EDT Respiratory Rate - - Oxygen Saturation 95% 08/03/2024 9:12 AM EDT Inhaled Oxygen Concentration - - Weight 95.3 kg (210 lb) 08/03/2024 9:12 AM EDT Height 172.7 cm (5' 8") 08/03/2024 9:12 AM EDT Body Mass Index 31.93 08/03/2024 9:12 AM EDT documented in this encounter Progress Notes * Irene Caldwell PA-C - 08/03/2024 9:16 AM EDT Nursing Notes: Tiff Hung LPN 08/03/24 0914 Signed Left foot very painful Pt here today with left foot pain. The pain is at heel. It started about a month ago. No injury. The pain sometimes radiates up the back of the ankle. Pt states that it hurts all the time. It gets worse the more he is on it. Pt denies swelling, redness, bruising. Pt has been taking tylenol with little relief. He has tried shoe inserts, exercises with no relief. Review of patient's allergies indicates: Allergen Reactions No Known Drug Allergy Current Outpatient Medications Medication Sig Dispense Refill [...] performed by Kel Sandhu MD at [facility], path shows adenomatous polyp repeat in 5 years Circumscribed scleroderma lichen simplex chronicus Esophageal reflux Hiatal hernia Insomnia, unspecified Mixed dyslipidemia Osteoarthrosis involving shoulder region Other anxiety states Social History Socioeconomic History Marital status: Spouse name: Not on file Number of children: Not on file Years of education: Not on file Highest education level: Not on file Occupational History Not on file Tobacco Use Smoking status: Former Current packs/day: 0.00 Average packs/day: 1 pack/day for 25.0 years (25.0 ttl pk-yrs) Types: Cigarettes Start date: 10/25/1975 Quit date: 10/25/2000 Years since quittin.7 Smokeless tobacco: Never Tobacco comments: one pack per week-or less/ exposed to 's passive smoke Vaping Use Vaping status: Never Used Substance and Sexual Activity Alcohol use: Yes Comment: 6-12 Beers per day Drug use: No Comment: marijuana in 70s Sexual activity: Yes Partners: Female Other Topics Concern Not on file Social History Narrative [facility] INFORMATION ENVIRONMENTAL HISTORY: Type of Home: One Story Type of Heating System: Electric, Wood and [place] Air Conditioning: Yes Patient's bedroom and Living [...] dog(s) Lives on a farm: No 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 Entered [...] Stability Do you currently live in a correction or have no steady place to sleep [...] - for ages0-17 years): Not on file O:Blood pressure 118/74, pulse 66, temperature 36.1 C (97 F), temperature source Tympanic, height 1.727 m (5' 8"), weight 95.3 kg (210 lb), SpO2 95%. GENERAL: alert, healthy, and no distress EXTREMITIES: left foot - no edema, no erythema, no ecchymosis. A:Pain of left heel (Primary) - PODIATRY REFERRAL OP - XR HEEL 2 OR MORE VIEWS - predniSONE 20 MG Oral Tablet (Deltasone); 2 tablets daily for 5 days then 1 tablet daily Other orders - INFLUENZA VAC., TRIVALENT, HD, PF, 65 AND ABOVE, 0.5 ML IM (FLUZONE HD) Will xray heel. Try prednisone. Will refer to podiatry for possible injection. Any questions/problems, please call. If anything changes, worsens, develops new sx, please call [facility]ILLIP. Follow Up: Return if symptoms worsen or fail to improve. Irene Caldwell PA-C documented in this encounter Nursing Notes * Tiff Hung LPN - 08/03/2024 9:13 AM EDT Left foot very painful documented in this encounter Plan of Treatment Upcoming Encounters Date Type Department Care Team (Late st Contact Info) Description 08/03/2024 9:45 AM EDT Imaging Radiology [address] [place] [address] Arrived 08/21/2024 8:00 AM EDT Office Visit Podiatry [facility] [address] [facility] [place] [address] Martina Zaldivar, [place] [address] [place] [address] [place] [phone] 12/01/2024 3:40 PM EST Office Visit Family Medicine [address] [place] [phone] Areli Wilks MD [address] [place] [address] [place] [phone] Pending Results Name Type Priority Associated Diagnoses Date /Time XR HEEL 2 OR MORE VIEWS Medical Imaging Routine Pain of left heel 08/03/2024 9:38 AM EDT Scheduled Procedures Name Priority Associated Diagnoses Date/Ti me COLONOSCOPY FLEXIBLE PROXIMAL DIAGNOSTIC Recall History of colon polyps Scheduled Referrals Name Type Priority Associated Diagnoses Orde r Schedule PODIATRY REFERRAL OP Referral Within 10 days (routine) Pain of left heel Ordered: 08/03/2024 Health Maintenance Due Date Last Done Comments [...] this encounter Medical Devices Implanted Type Area Hoop Driving Machine Operator Device Identifier Shelf Expiration Date Model / Serial / Lot Lens Li61ao 13.00mm 21.50 - [id number] - [id number] Implanted:Qty: 1 on 06/03/2023 by Nish Goel MD at OR [facility] Right: Eye BAUSCH & LOMB 12/23/2027 [id number] / [id number] / [id number] Lens Li61ao 13.00mm 21.00 - [id number] - [id number] Implanted:Qty: 1 on 07/08/2023 by Nish Goel MD at OR [facility] Left: Eye BAUSCH & LOMB 02/22/2028 [id number] / [id number] / [id number] documented as of this encounter Visit Diagnoses Diagnosis Pain of left heel- Primary Pain in limb documented in this encounter Advance Directives * [...] Power of Attor magui? No Care Teams Silk Screen Printer Machine Relationship Specialty Start Date End Date Areli Wilks MD [address] [place] [address] [place] [address] PCP - General Family Medicine 05/09/15 documented as of this encounter
[2025-01-02 19:50] LABS: ANTI-Xa, UFH(UnfractionatedHep 0.97 IU/ml (0.3-0.7)
[2025-01-02] MEDS: ACETAMINOPHEN 325 MG TAB PO PRN (20:09)
[2025-01-02] MEDS: clonazePAM 1 MG TAB PO SCH (23:53)
[2025-01-02] MEDS: CITALOPRAM 20 MG TAB PO SCH (23:56)
[2025-01-03 05:11] LABS: Basophils # (auto) 0.04 K/uL (0.00-0.20); Basophils % (auto) 0.6 %; Eosinophils # (auto) 0.34 K/uL (0.00-0.50); Eosinophils % (auto) 4.7 %; Hemoglobin 11.4 g/dl (14.0-18.0); Immature Granulocytes # (auto) 0.02 K/uL (0.01-0.20); Immature Granulocytes % (auto) 0.3 %; Lymphocytes % (auto) 26.1 %; Mean Corpuscular Hemoglobin 31.8 pg (25.0-34.0); Mean Corpuscular Hgb Conc 33.5 g/dL (32.0-36.0); Mean Corpuscular Volume 94.7 fL (80.0-100.0); Mean Platelet Volume 10.3 fL (9.4-12.4); Monocytes # (auto) 0.63 K/uL (0.11-0.59); Monocytes % (auto) 8.7 %; Neutrophils # (auto) 4.34 K/uL (1.40-6.50); Neutrophils % (auto) 59.6 %; Platelet Count 158 K/uL (130-400); RDW Coefficient of Variation 12.3 % (11.5-14.5); RDW Standard Deviation 43.1 fL (36.4-46.3); Red Blood Count 3.59 M/uL (4.70-6.10); White Blood Count 7.27 K/ul (4.8-10.8)
[2025-01-03 05:20] LABS: BUN Creatinine Ratio 14.6 (10-20); Calcium 8.4 mg/dl (8.6-10.3); Creatinine Clr Calc Pharmacy 60.1 ml/min; Potassium 4.1 mmol/L (3.5-5.1)
[2025-01-03 05:29] LABS: ANTI-Xa, UFH(UnfractionatedHep 0.37 IU/ml (0.3-0.7)
--- NOTE | 2025-01-03 06:54 | Electrocardiogram Report ---
Test Reason : Blood Pressure : */* mmHG Vent. Rate : 66 BPM Atrial Rate : 66 BPM P-R Int : 164 ms QRS Dur : 146 ms QT Int : 452 ms P-R-T Axes : 54 -35 26 degrees QTcB Int : 473 ms Normal sinus rhythm Left axis deviation Right bundle branch block Abnormal ECG When compared with ECG of 25-Feb-2024 16:52, Premature ventricular complexes are no longer Present Confirmed by Grant Carrero ([id number]) on 01/03/2025 6:53:42 AM Referred By: Confirmed By: Grant Carrero
[2025-01-03 07:41] VITALS: O2SAT 96
--- NOTE | 2025-01-03 08:28 | Pre Anesthesia Assessment ---
Date of Service January 03, 2025 Pre Sedation Assessment Vital Signs Temp Pulse Pulse Resp BP BP Pulse Ox 01/03/25 07:37 60 17 146/84 H 96 01/03/25 07:12 36.4 C L 65 18 139/75 95 01/03/25 03:40 36.5 C 54 L 18 96/64 L 96 01/02/25 23:29 66 18 127/59 L 96 01/02/25 21:48 64 01/02/25 19:26 36.7 C 59 L 16 129/72 96 01/02/25 15:34 64 01/02/25 14:33 36.4 C L 57 L 16 160/94 H 95 01/02/25 13:31 70 18 149/85 H 95 01/02/25 13:00 63 18 171/91 H 93 01/02/25 11:42 69 01/02/25 11:22 65 18 97 01/02/25 11:15 36.3 C L 68 17 157/92 H 96 01/02/25 11:13 01/02/25 11:13 63 18 143/78 H 97 O2 Del Method 01/03/25 07:37 Room Air 01/03/25 07:12 Room Air 01/03/25 03:40 Room Air 01/02/25 23:29 Room Air 01/02/25 21:48 01/02/25 19:26 Room Air 01/02/25 15:34 01/02/25 14:33 Room Air 01/02/25 13:31 Room Air 01/02/25 13:00 Room Air 01/02/25 11:42 01/02/25 11:22 Room Air 01/02/25 11:15 Room Air 01/02/25 11:13 Room Air 01/02/25 11:13 Room Air Cardiovascular RRR, no murmur, no edema Respiratory normal respiratory effort, lungs clear to auscultation Pre-Sedation Airway Assessment Smoking Status: Never smoker Hx Sleep Apnea: No Short, Thick Neck: No Thyromental Distance: > or= 3.5 Finger Breadths Oral Cavity: + WNL Mallampati Class: III ASA: ASA3 NPO Status Date of Last Intake of Fluids: 01/02/25 Time of Last Intake of Fluids: 21:00 Date of Last Intake of Solid Food: 01/02/25 Time of Last Intake of Solid Foods: 21:00 Notes The planned sedation has been discussed with the patient. Informed Consent was obtained. I have identified the patient, determined the appropriateness of sedation and have assessed the patient immediately prior to the procedure. All medicine(s) and interventions are by my order.
[2025-01-03] MEDS: MIDAZOLAM HCL 1 MG/ML 2ML VIAL ONE ×2 (09:01→09:10)
[2025-01-03] MEDS: fentaNYL citrate PF 100 MCG/2 ML VIAL ONE (09:05)
[2025-01-03] MEDS: HEPARIN (PORCINE) 1000 UNIT/ML 10 ML (CATH LAB USE ONLY) ONE (09:05)
[2025-01-03] MEDS: OPTIRAY 350 ONE (09:06)
[2025-01-03] MEDS: IODIXANOL (VISIPAQUE) 320 MG/ML 100ML IV ONE (09:06)
[2025-01-03] MEDS: NITROGLYCERIN/D5W 100MCG/ML 20ML SYR ONE (09:10)
[2025-01-03] MEDS: niCARdipine 2,000 MCG/20 ML SYR ONE (09:10)
--- NOTE | 2025-01-03 09:16 | Post Anesthesia Assessment ---
Date of Service January 03, 2025 Post Sedation Assessment Vital Signs Temp Pulse Pulse Resp BP BP Pulse Ox 01/03/25 07:37 60 17 146/84 H 96 01/03/25 07:12 36.4 C L 65 18 139/75 95 01/03/25 07:00 60 01/03/25 03:40 36.5 C 54 L 18 96/64 L 96 01/02/25 23:29 66 18 127/59 L 96 01/02/25 21:48 64 01/02/25 19:26 36.7 C 59 L 16 129/72 96 01/02/25 15:34 64 01/02/25 14:33 36.4 C L 57 L 16 160/94 H 95 01/02/25 13:31 70 18 149/85 H 95 01/02/25 13:00 63 18 171/91 H 93 01/02/25 11:42 69 01/02/25 11:22 65 18 97 01/02/25 11:15 36.3 C L 68 17 157/92 H 96 01/02/25 11:13 01/02/25 11:13 63 18 143/78 H 97 O2 Del Method 01/03/25 07:37 Room Air 01/03/25 07:12 Room Air 01/03/25 07:00 01/03/25 03:40 Room Air 01/02/25 23:29 Room Air 01/02/25 21:48 01/02/25 19:26 Room Air 01/02/25 15:34 01/02/25 14:33 Room Air 01/02/25 13:31 Room Air 01/02/25 13:00 Room Air 01/02/25 11:42 01/02/25 11:22 Room Air 01/02/25 11:15 Room Air 01/02/25 11:13 Room Air 01/02/25 11:13 Room Air Recovery Score Activity: Moves 4 extremities Respiration: Deep Breath/Cough Circulation: +/-20% PreAnes Value Consciousness: Fully Awake Oxygen Saturation: > 92% On Room Air Post Anesthesia Score: 10 Discharge Sedation Level of Care: Fast Track Phase II Post Sedation Plan On clinical assessment, the patient appears to have tolerated the sedation without complications. Patient is recovering as anticipated. Patient will continue to be monitored by nursing and may be discharged when sedation discharge criteria are met per below protocol. Upon Completions of procedure up to 15 minutes continue every 5 minute vital signs and the P.A.R. score; then discharge to a Phase I or Fast Track to Phase II per the following guidelines: * Discharge Patient to appropriate Phase II area if PAR is 8 or greater or return to pre- procedure baseline. The post - procedure orders will be as directed. * If PAR score is less than 8 or not return to pre-procedure baseline then patient will follow Phase I monitoring till PAR is reached for Phase II. The Phase I may be done in procedure room or may call to secure a Phase I area. * If naloxone or flumazenil are used for reversal, hold in Phase I for continued monitoring from when last reversal dose was given for a minimum of 60 minutes or longer pending the nurse and/or physician discretion of patient condition before discharge to Phase II. Please call the Sedation Physician to re-evaluate and complete post-note for discharge to Phase II area. Do NOT discharge from procedure sedation or Phase 1 until post- sedation evaluation note is complete by procedure /sedation MD Sedation Discharge Instructions to be given to the patient at discharge to home. [facility] Procedure Codes (Charges) Indication for Procedure Indication for procedure: Unstable angina Sedation/Anesthesia Procedure 1: Sedation/Anesthesia: 73279 Mod Sedation by the same physician;Init15 Min Child Age 5 & Up (Initial 15 minutes, start 0849, and 0904) Total Sedation Time (minutes): 15
[2025-01-03] MEDS: LIDOCAINE 1% LOCAL 20 ML VIAL ONE (10:10)
--- NOTE | 2025-01-03 10:39 | Cardiology Progress Note ---
Date of Service January 03, 2025 Assessment & Plan (1) Unstable angina pectoris: Plan: Patient with recent symptoms consistent with both exertional and resting angina that has progressed over an interval of 4 months. He underwent an exercise nuclear stress test performed this morning at [facility]. The patient exercised according to Kulwinder protocol for 5 minutes and 30 seconds with reproduction of his chest discomfort, character consistent with angina, with associated ST segment depression in the inferior and lateral leads. Patient received 1 dose of sublingual nitroglycerin with resolution of the tightness. Perfusion images were reviewed independently and reveal a large sized lateral perfusion defect on the stress images with reperfusion on the rest images consistent with ischemia in the circumflex territory. On quantitative analysis the perfusion defect was 100% reversible. The post-rest ejection fraction by gated SPECT was normal, 57%. 01/02/2025 High sensitive troponin level x 1 performed in the emergency department is within normal limits. ST segment depression has resolved on follow-up EKG as documented in the emergency department. Recommend admission to the PCU. Proceed with aspirin, unfractionated heparin, atorvastatin.Start gentle normal saline, 75 mL/h Tentative plan for cardiac catheterization tomorrow unless the patient experiences accelerated symptoms at which time procedure will be performed on an expedited basis earlier. (2) HTN (hypertension): Plan: Hold off on adding metoprolol for now as baseline heart rate is already in the 60s. Continue prior to hospital treatment with amlodipine 5 mg daily, lisinopril 20 mg daily. (3) Hyperlipidemia: Plan: Most recent LDL cholesterol as obtained on 12/01/2024 was 77 mg/dL. Increase outpatient atorvastatin from 40 mg to 80 mg. (4) Alcohol abuse: Plan: Patient describes daily alcohol use, 5-6 drinks per day. Will likely require withdrawal prophylaxis. Case discussed with Dr Narayanan of emergency medicine and Dr Busby of interventional cardiology for the purpose of coordination of care. Plan 01/03/2025 Cardiac catheterization today demonstrated severe single-vessel coronary artery disease with ostial left circumflex stenosis. High complexity lesion for coronary invention. Plan transfer to [facility] Transfer being arranged will resume heparin Admission and Anticipated Discharge Date Admission Date: January 02, 2025 Subjective Patient was seen and personally examined postcardiac catheterization. Currently no complaints. Cardiac catheterization demonstrated significant single-vessel disease with high-grade ostial circumflex stenosis greater than 90% Currently without chest pain no chest pains or shortness of breath overnight no dizziness or lightheadedness. Radial band in place Review of Systems Review of Systems: All systems reviewed & are unremarkable except as noted in Subjective Physical Exam Constitutional: WD/WN, vitals as above no acute distress Eyes: PERRL, conjunctivae normal, anicteric sclerae ENMT: external ear and nose normal, oropharynx normal Neck: trachea midline, no thyromegaly Respiratory: normal respiratory effort, lungs clear to auscultation Cardiovascular: RRR, no murmur, no edema Vessels: normal carotid upstroke and femoral pulses present Gastrointestinal (Abdomen): normal bowel sounds, soft, nontender, no hepatosplenomegaly Musculoskeletal: no cyanosis or clubbing, extremities motor strength 5/5 Results & Data Vital Signs (Past 12 Hours) Vital Signs Temp Pulse Pulse Resp BP BP Pulse Ox 01/03/25 09:37 60 18 136/85 96 01/03/25 09:22 60 17 141/74 H 96 01/03/25 07:37 60 17 146/84 H 96 01/03/25 07:12 36.4 C L 65 18 139/75 95 01/03/25 07:00 60 01/03/25 03:40 36.5 C 54 L 18 96/64 L 96 01/02/25 23:29 66 18 127/59 L 96 O2 Del Method 01/03/25 09:37 Room Air 01/03/25 09:22 Room Air 01/03/25 07:37 Room Air 01/03/25 07:12 Room Air 01/03/25 07:00 01/03/25 03:40 Room Air 01/02/25 23:29 Room Air Laboratory Results Laboratory Results - last 24 hr 01/02/25 01/02/25 01/02/25 11:30 12:27 19:05 WBC 7.94 RBC 4.03 L Hgb 13.2 L Hct 37.8 L MCV 93.8 MCH 32.8 MCHC 34.9 RDW Std Deviation 42.5 RDW Coeff of Jessica 12.3 Plt Count 193 MPV 10.5 Immature Gran % (Auto) 0.4 Neut % (Auto) 68.7 Lymph % (Auto) 17.5 [place] % (Auto) 8.4 Eos % (Auto) 4.4 Baso % (Auto) 0.6 Neut # (Auto) 5.45 Lymph # (Auto) 1.39 [place] # (Auto) 0.67 H Eos # (Auto) 0.35 Baso # (Auto) 0.05 Immature Gran # (Auto) 0.03 PT Cancelled 10.7 INR Cancelled 1.0 APTT Cancelled 27 PTT Ratio Cancelled 1.0 Heparin Anti-Xa, Unfract 0.97 H* Sodium 134 L Potassium 4.4 Chloride 101 Carbon Dioxide 26 Anion Gap 7 BUN 16 Creatinine 1.22 Est Cr Clr Drug Dosing 64.6 eGFR 64.18 BUN/Creatinine Ratio 13.1 Glucose 99 Calcium 9.6 Magnesium 1.9 Total Bilirubin 1.4 H AST 18 ALT 19 Alkaline Phosphatase 41 Troponin I High Sens 15.5 Total Protein 7.7 Albumin 4.6 Globulin 3.1 Albumin/Globulin Ratio 1.5 Lipase 38 01/02/25 01/03/25 20:53 04:45 WBC 7.27 RBC 3.59 L Hgb 11.4 L Hct 34.0 L MCV 94.7 MCH 31.8 MCHC 33.5 RDW Std Deviation 43.1 RDW Coeff of Jessica 12.3 Plt Count 158 MPV 10.3 Immature Gran % (Auto) 0.3 Neut % (Auto) 59.6 Lymph % (Auto) 26.1 [place] % (Auto) 8.7 Eos % (Auto) 4.7 Baso % (Auto) 0.6 Neut # (Auto) 4.34 Lymph # (Auto) 1.90 [place] # (Auto) 0.63 H Eos # (Auto) 0.34 Baso # (Auto) 0.04 Immature Gran # (Auto) 0.02 PT INR APTT PTT Ratio Heparin Anti-Xa, Unfract 0.60 0.37 Sodium 136 Potassium 4.1 Chloride 105 Carbon Dioxide 27 Anion Gap 4 BUN 19 Creatinine 1.30 Est Cr Clr Drug Dosing 60.1 eGFR 59.47 BUN/Creatinine Ratio 14.6 Glucose 98 Calcium 8.4 L Magnesium Total Bilirubin AST ALT Alkaline Phosphatase Troponin I High Sens Total Protein Albumin Globulin Albumin/Globulin Ratio Lipase (2) HTN (hypertension) Hypertension type: unspecified Qualified Code(s): I10 - Essential (primary) hypertension
[2025-01-03 11:03] VITALS: RESP 19; TEMP 97.7
[2025-01-03] MEDS ORDERED: Nursing to Pharmacy Communication SCH (11:45)
[2025-01-03] MEDS: PANTOprazole 40 MG TAB PO SCH (12:42)
[2025-01-03] MEDS: ATORVASTATIN 40 MG TAB PO SCH (12:42)
[2025-01-03] MEDS: lisinopril 20 MG TAB PO SCH (12:42)
[2025-01-03] MEDS: amLODIPine BESYLATE 5 MG TAB PO SCH (12:42)
[2025-01-03 13:06] VITALS: PULSE 64
[2025-01-03 13:45] VITALS: BP 146/84
--- NOTE | 2025-01-03 13:47 | Discharge Summary ---
Discharge Summary Date of Service January 03, 2025 Principal Dx & Hospital Course #1 = Principal Diagnosis (1) Unstable angina pectoris: (2) HTN (hypertension): (3) Dyslipidemia: (4) Generalized anxiety disorder: (5) GERD (gastroesophageal reflux disease): Honorio Mccall is a 69 year old male with PMH of HTN, dyslipidemia, GERD, and LAURA who presented to the ED yesterday after undergoing an exercise nuclear stress test that was markedly abnormal where there was chest discomfort and subtle ST segment depressions in the inferior lateral leads. Upon arrival to the ED, his vitals were stable, troponin negative, and EKG with resolved ST segment depressions. He was given ASA 324mg and nitropaste, was started on a heparin drip, and his atorvastatin dose was increased from 40mg to 80mg. He underwent cardiac catheterization this morning which demonstrated severe single-vessel coronary artery disease with ostial left circumflex stenosis greater than 90%. Our cardiology team considers it to be a high complexity lesion for coronary intervention which is prompting transfer to [facility]. 1. Unstable angina, positive nuclear stress test, CAD Acute, unstable. Continue heparin drip. Transfer to [facility]. 2. HTN Chronic, stable. Continue lisinopril and amlodipine. 3. Dyslipidemia Chronic, stable. Increased atorvastatin from 40mg to 80mg. 4. LAURA Chronic, stable. Continue citalopram and clonazepam. 5. GERD Chronic, stable. Continue pantoprazole. Current Inpatient Medications Acetaminophen (Acetaminophen 325 Mg Tab) 650 mg PO Q4H PRN PRN Reason: Pain or Fever Stop: 02/01/25 14:31 Last Admin: 01/03/25 12:45 Dose: 650 mg Amlodipine Besylate (Amlodipine Besylate 5 Mg Tab) 5 mg PO DAILY [facility] Stop: 02/02/25 08:59 Last Admin: 01/03/25 12:42 Dose: 5 mg Atorvastatin Calcium (Atorvastatin 40 Mg Tab) 80 mg PO QAM JERALD Stop: 02/02/25 08:59 Last Admin: 01/03/25 12:42 Dose: 80 mg Citalopram Hydrobromide (Citalopram 20 Mg Tab) 20 mg PO HS JERALD Stop: 02/01/25 23:39 Last Admin: 01/02/25 23:56 Dose: 20 mg Clonazepam (Clonazepam 1 Mg Tab) 1 mg PO HS [facility] Stop: 02/01/25 23:39 Last Admin: 01/02/25 23:53 Dose: 1 mg Heparin Sodium/Dextrose (Heparin 36228 Unit/500 Ml D5w) 25,000 units in 500 mls @ 24 mls/hr IV .[id number] [facility]; Protocol Stop: 02/01/25 12:29 Last Titration: 01/03/25 12:48 Dose: 1,200 units/hr, 24 mls/hr Lisinopril (Lisinopril 20 Mg Tab) 20 mg PO DAILY [facility] Stop: 02/02/25 08:59 Last Admin: 01/03/25 12:42 Dose: 20 mg Nitroglycerin (Nitroglycerin 2% Ointment 30gm Tube) 1 inch EXT Q6H [facility] Stop: 02/01/25 16:44 Last Admin: 01/03/25 12:43 Dose: 1 inch Pantoprazole Sodium (Pantoprazole 40 Mg Tab) 40 mg PO QAM [facility] Stop: 02/02/25 08:59 Last Admin: 01/03/25 12:42 Dose: 40 mg Notes For Next Care Provider Medication Changes From Visit Atorvastatin increased from 40mg to 80mg this admission Admission HPI Per Admitting Provider 69-year-old male with history of hypertension, dyslipidemia, GERD, LAURA Presenting with chest pain times few weeks. Patient has been having intermittent chest pain which started last August 2024. Today, the patient underwent an exercise nuclear stress test which was markedly abnormal, reproducing chest discomfort and with subtle ST segment depressions in the inferior lateral leads. He was then referred to the ER. Upon arrival, blood pressure 143/78, rate 63, respiratory rate 18, 90% on room air, temperature afebrile Troponin x 1 negative EKG no signs of ischemia or infarct Dr. Moe evaluated the patient at the ER. He was given [id number] mg, heparin drip was started, and Nitropaste, Lipitor 80 mg also ordered. Discussed case with Dr. Moe, plan is for a cardiac catheterization tomorrow. On exam, patient seen resting in bed, sitting up, having 1 out of 10 chest discomfort which is usual according to him. No active dizziness, headache, shortness of breath, nausea. Admission Exam Per Admitting Provider General- oriented x 3, not in distress, speaks in sentences with no effort or accessory muscle use Head- atraumatic Eyes- PERRL, EOMI, anicteric ENT- oropharynx clear Neck- supple, no JVD, no adenopathy, no thyromegaly; carotids +2/2, no bruits appreciated Lungs- clear to auscultation bilaterally, no rales/wheezes Heart- normal rate, regular rhythm; no murmur, no gallop, no rub appreciated Abdomen- normal bowel sounds, nondistended, soft, nontender, no masses or hepatosplenomegaly Extremities- no pretibial edema, no calf tenderness; peripheral pulses intact Neuro- alert, oriented x 3; CN 2-12 grossly intact; motor 5/5 bilaterally;sensation 100% on all extremities; no other gross focal neurologic deficits Skin- warm & dry Discharge Exam VITALS: Reviewed and VSS. GEN: Healthy appearing, well-developed, NAD. PSYCH: Good Judgment. AOx3. Normal memory, mood, and affect. CV: RRR, no m/r/g. LUNGS: CTAB, no w/r/c. ABD: Soft, NT/ND, NBS, no masses or organomegaly. SKIN: Warm, well perfused. No skin rashes or abnormal lesions. EXT: No clubbing, cyanosis, or edema. Radial band in place. NEURO: Bedrest while radial band in place. Normal muscle strength and tone. No focal deficits. Updated Medication List Medication Instructions Recorded Confirmed Type citalopram 20 mg tablet 20 mg PO HS 06/17/18 01/02/25 History clonazepam 1 mg tablet 1 mg PO HS 06/17/18 01/02/25 History pantoprazole 40 mg tablet,delayed 40 mg PO QAM 07/19/18 01/02/25 History release (Protonix) amlodipine 5 mg tablet 5 mg PO DAILY 09/18/20 01/02/25 History lisinopril 20 mg tablet 20 mg PO DAILY 09/18/20 01/02/25 History atorvastatin 40 mg tablet 40 mg PO QAM 01/02/25 01/02/25 History Hospital Stay Data Consultations 01/02/25 11:56 ED Decision to Admit Stat 01/02/25 14:32 Consult Cardiology Routine Procedures Performed Operation Date: 01/03/25 08:00 Actual Procedures p Cineradiography w/Routine Exam - Chaparro Busby MD, PhD p Cath, Coronaries ONLY (no LV) - Chaparro Busby MD, PhD Diagnostic Imagining Performed 01/02/25 11:57 CL Cath Imgs for PACS use only Stat 01/03/25 08:22 CL Cath Imgs for PACS use only Stat Pending Results Patient Have Any Pending Studies at Discharge: No Discharge Instructions Given to Patient (Per Discharging Provider) Mr Hutchison You were admitted to the hospital for abnormal stress test You had a cardiac catheterization which showed significant coronary artery disease. You are being transferred to [facility] for further management of this. Please ensure follow up with Cardiology. It was a pleasure taking care of you Total Time Total Time Spent Total Time Spent (In Minutes): I spent a total of 35 minutes coordinating, documenting and providing care for this patient excluding time spent in the performance of separately billed services or time spent by another provider/QHP. 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 Discussed findings with patient and Arrangements made for transfer to [facility] Agree with findings and plans as detailed by Anika MCCABE
--- NOTE | 2025-01-04 16:23 | Cardiac Catheterization ---
[facility] Data: Forging Operator Cardiac Status Clinical evaluation leading to the procedure CAD Presenation: Non STEMI and Positive Stress Test Anginal Classification: CCS III Heart Failure: No Cardiogenic Shock within 24 Hours: No Cardiac Arrest within 24 Hours: No Imaging Studies Past 6 Months: Yes Stress Studies Past 6 Months: Yes Stress Testing w/SPECT MPI: Yes - Positive Coronary Anatomy Dominant: Right Left Main (% Stenosis): Normal LAD (% Stenosis): Normal D1 (% Stenosis): Normal Circumflex (% Stenosis): Ostial (95 to 99%, calcified) OM1 (% Stenosis): Normal L PL1 (% Stenosis): Normal RCA (% Stenosis): Normal R PDA (% Stenosis): Normal R PL1 (% Stenosis): Normal Diagnostic Physicians Name: Chaparro Busby MD, PhD Closure Device Recommendations: Medical Therapy and/or Counseling and PCI without planned CABG Cardiac Cath Procedure Full Procedure Date January 03, 2025 Pre-Procedure Diagnosis Pre-Procedure Diagnosis: Positive Stress Test AUC Score AUC Score: 07 Post-Procedure Diagnosis Post-Procedure Diagnosis: Severe CAD Procedure(s) Performed Procedure(s) Performed: Coronary Angiography and Ultrasound Guided Vascular Access Internal Salesperson Chaparro Busby MD, PhD Estimated Blood Loss Estimated Blood Loss: 5 cc Medication(s) Medication(s): Fentanyl, Heparin, Lidocaine 1%, Nicardipine, Nitroglycerin and Versed Summary of Findings Brief description: Patient was brought to the cardiac catheterization suite where he was shaved and prepped in a sterile fashion. Sedated using IV Versed and fentanyl. Soft tissues of the right wrist were anesthetized using 2 mL of 1% Xylocaine. The right radial artery was accessed using the ultrasound for guidance (image saved) , and a modified Seldinger technique. A 6 Azerbaijani radial artery glide sheath was placed. Patient was provided anticoagulation with IV heparin and antispasmodics including nicardipine and nitroglycerin. All catheters were advanced and exchanged over a 0.035 J-tip wire. Left coronary angiography in orthogonal views with a 5 [place] 4 diagnostic catheter. Right coronary angiography in orthogonal views with a 5 [place] 4 diagnostic catheter. Diagnostic catheters were removed. Radial artery sheath was removed. Hemostasis was obtained using the TR band. Patient was hemodynamically stable and asymptomatic. He was therefore transferred to the holding area for further workup and management. This ended the case. Coronary angiography findings: ZAH-laxyc-zpiwghk vessel bifurcating into LAD and circumflex. Distally there is calcification and less than 20% stenosis. LAD-this is large caliber and transapical. Gives a large branching first diagonal. There is several small septals and smaller diagonal branches. There is no more than mild luminal irregularities in the LAD and its branches. LCx-this is large caliber and nondominant. Moderately calcified ostial stenosis of 95 to 99%. The AV groove vessel continues beyond this and there is MOISES II flow. Just beyond the stenosis appears to be a small thrombus. He circumflex gives rise to the OM1 which has luminal irregularities and distally there is a small posterolateral branch as it terminates. DNJ-tyury-mpokfxh and dominant vessel. Mild calcification. Bifurcates distally into a large PDA and a large posterolateral branch. There is no more than mild luminal irregularities in the RCA and its branches. Summary: 1. Severe ostial circumflex disease which is very calcified. Appears to be a difficult PCI and will likely require intracoronary lithotripsy. The vessel appears to take off at a 90% angle. High risk for complication particularly involving the left main. For these reasons, we will refer the patient to tertiary center. Cardiac surgical backup plus more advanced hemodynamic support and PCI equipment available. 2. Guideline directed medical therapy for secondary prevention of coronary disease. 3. Given the thrombus appearing in the proximal circumflex the patient should remain on a heparin drip as well as dual antiplatelet therapy. 4. Findings were discussed with the primary cardiology team. Patient is to be transferred to [facility]. Hemodynamics Rest Ao:: 127/84 mmHg Final Ao: 135/92 mmHg LV: Not performed Recommendations Recommendations: Medical Therapy and/or Counseling and PCI without planned CABG Radiation Exposure (mGy) 875 mGy, fluoroscopy time 1.9 minutes Contrast (mls) 80 Anesthesia 2 mg Versed, 50 mcg fentanyl IV. Start time 0849, end time 0904 Procedural Complication(s) None Disposition Forging Operator Holding/Recovery I attest to the content of the Intraoperative Record and any orders documented therein. Any exceptions are noted below. [facility] Card Cath Procedure Codes Cardiac Catheterization Procedure 1: Cardiovascular Cath Procedures: 20718 Coronaries Therapeutic Services & Ancillary Procedure 2: Cardiovascular Tx and Anc Procedures: 35331 Ultrasonic Guidance Vascular Access PG Care Time/CCT Total # of Minutes Spent Total Time Spent with Patient: Total time spent is greater than 50% in coordination of care (as documented) at patient's floor/unit and/or counseling patient:
== END 2025-01-03 14:22 | disposition short-term general hospital (02) | DRG 287 ==
LOC: ED 11:12 → SUATTDRO 12:46 → 2E 12:46
PROC: CLB.CCO (2025-01-03 08:00)